=== PATIENT | female | born 1945 | race Caucasian/White ===

== ENCOUNTER 2016-06-02 13:36 | Inpatient (IN) | payer MEDICARE, OTHER ==
[~2016-06-02] VITALS: Ht 170.2 cm; Wt 86.1 kg
[2016-06-02 15:20] VITALS: BP 119/53
[2016-06-02 16:01] VITALS: BP 94/60
--- NOTE | 2016-06-02 16:06 | Physical Therapy Evaluation ---
PT Evaluation-General Medical Diagnosis Admission Date Jun 02, 2016 at 15:25 Medical Diagnosis: CVA Onset Date: May 30, 2016 Therapy Diagnosis Therapy Diagnosis: impaired mobility, motor planning, coordination Referral Physician: Stuart Reason for Referral: Evaluation/Treatment Medical History Pertinent Medical History: CVA, DM, HTN Additional Medical History carotid artery stenosis, bilateral cataracts, hyperlipidemia, lung mass, tubal ligation, carotid endarterectomy, former smoker Current History CVA Reviewed History: Yes Social History Home: Single Level Current Living Status: Alone Entry Into Home: Stairs With Railing PT Steps Into Home: 3 Her daughter lives next door and she may go live with her, her daughter has 4 steps to enter and a handrail. Prior/Core FIM Prior Level of Function Functional [place] Measure 0=Not Assessed/NA 4=Minimal Assistance 1=Total Assistance 5=Supervision or Setup 2=Maximal Assistance 6=Modified [place] 3=Moderate Assistance 7=Complete [place] Bed Mobility: 7 Transfers (B,C,W/C) (FIM): 7 Gait: 7 PT Evaluation-Current Subjective Patient in bed pre tx, agrees to PT. Patient has difficulty with communication and cannot answer questions or follow directions. She can understand gestures somewhat. It is unknown whether she has any pain but she does not seem in any distress. Will be co-treating with OT for part of this treatment. Pt/Family Goals patient is unable to state any goals Objective Patient Orientation: Unable to Assess ROM/Strength ROM Lower Extremities Patient has normal ROM in both legs except she is limited in internal and external hip rotation bilaterally. Strenght Lower Extremities 4+-5/5 gross bilaterally Neuromuscular (Tone, Coordination, Reflexes) Patient has decreased coordination on the right side and probable motor planning deficits. She was unable to follow directions for cranial nerve or visual testing but she seems to have a loss of visual field on the right side and possible right neglect. Sensory Vision: Unable to Assess Hearing: Unable to Assess Sensation Lower Extremities unable to assess sensation Transfers Functional [place] Measure 0=Not Assessed/NA 4=Minimal Assistance 1=Total Assistance 5=Supervision or Setup 2=Maximal Assistance 6=Modified [place] 3=Moderate Assistance 7=Complete IndependenceIRFPAI Quality Coding Scale 6 Independent with activity with or without an assistive device 5 Patient requires set up or clean up by helper. Patient completes activity by themselves 4 Supervision or touching assist (CGA). [place] provide cues , steadying assist 3 The helper provides less than half the effort to complete the activity 2 The helper provides more than half the effort to complete the activity 1 Dependent. The helper does all the effort to complete an activity 7 Patient refused to complete or attempt activity 9 The patient did not perform the activity before the current illness or injury 88 Not attempted due to Medical conditions or safety concerns Transfers (B, C, W/C) (FIM): 4 Scootin Rollin Roll Left to Right (QC): 4 Supine to/from Sit: 4 Sit to/from Stand: 4 Sit to Lying (QC): 4 Lying to Sitting/Side of Bed(Q: 4 Sit to Stand (QC): 4 Car Transfer (QC): 88 Patient performed supine to sit with min assist but was able to perform sit to supine with SBA, CGA for sit to stand, she pulls up from the walker when standing and does not use hand appropriately when sitting and has not seemed to understand safety cues at this time Gait Does the Patient Walk?: Yes Mode of Locomotion: Walk Anticipated Mode of Locomotion: Walk Gait (FIM): 4 Walk 10 feet (QC): 4 Walk 50 ft with 2 Turns(QC): 4 Walk 150 ft (QC): 4 Walking 10ft/uneven surface-QC: 4 Distance: 100', 150' Gait Level of Assist: 4 Gait Persons Needed: 1 Gait Assistive Device: FWW Comments/Gait Description Patient can ambulate 150' with a rolling walker with min assist (including 10' over an uneven surface like carpet and 50' with at least 2 turns of 90 degrees) . She needs min assist for guiding the walker and occasional redirecting physically because she does not seem to understand cues. Wheelchair Training Does the Pt Use a Wheelchair?: No Stairs Stairs (FIM): 2 #of Steps: 4 Level of Assist: 4 1 Step (curb) (QC): 4 4 Steps (QC): 4 12 Steps (QC): 88 If not tested on admit;explain Patient could go up and down 4 steps using 2 handrails with min assist. She needs occasional assist for balance and safety, close guarding, she does not understand cues for safety and step sequence. Balance Sitting Static: Normal Sitting Dynamic: Normal Standing Static: Fair Standing Dynamic: Fair Picking up an Object (QC): 88 Assessment/Needs Patient has impaired mobility, endurance, coordination, balance, motor planning , post CVA. Rehab Potential: Fair PT Short Term Goals Short Term Goals Time Frame: Jun 09, 2016 Transfers (B,C,W/C) (FIM): 4 (CGA) Gait (FIM): 4 Gait Distance Comment: 200' Gait Level of Assist: 4 (CGA) Gait Assistive Device: FWW PT Rn Transport Goals Skilled Nursing Goals PT Rn Transport Goals Time Frame: Jun 23, 2016 Transfers (B,C,W/C) (FIM): 5 Sit to Lying (QC): 6 Lying-Sitting on Side/Bed(QC): 6 Sit to Stand (QC): 4 Rollin Roll Left to Right (QC): 6 Car Transfer (QC): 4 Does the Patient Walk: Yes Gait (FIM): 5 Distance: 300' Walk 10 feet (QC): 4 Walk 10ft-Uneven Surface(QC): 4 Walk 50ft with 2 Turns (QC): 4 Walk 150 ft (QC): 4 Gait Level of Assist: 5 Gait Assistive Device: FWW Stairs (FIM): 2 # of Steps: 8 1 Step (curb) (QC): 4 4 Steps (QC): 4 12 Steps (QC): 88 Stairs Level Of Assist: 4 (CGA) Picking up an Object (QC): 88 PT Plan Problem List Problem List: Activity Tolerance, Functional Strength, Safety, Balance, Gait, Transfer, Bed Mobility, ROM Treatment/Plan Treatment Plan: Continue Plan of Care Treatment Plan: Bed Mobility, Education, Functional Activity Lio, Functional Strength, Group Therapy, Gait, Safety, Therapeutic Exercise, Transfers Treatment Duration: Jun 23, 2016 # of days/week 5-6 Visits Per Week: 10-11 Minutes/Day (M-F): 60-90 Minutes/Day (Sat/Braun): 15-30 Pt/Family Agrees w/Plan: Yes Safety Risks/Education Patient Education: Gait Training, Transfer Techniques, Steps, Correct Positioning, Disease Process, Safety Issues Teaching Recipient: Patient, Family Teaching Methods: Demonstration, Discussion Response to Teaching: Reinforcement Needed Discharge Recommendations Plan Patient will perform bed mobility and transfer training, balance and endurance training, functional strengthening, stair training, education, to improve functional mobility and independence at home. Therapy D/C Recommendations: Home w/ Family Support, Fdc (TCU/NH) Time/GCodes Time In: 1530 Time Out: 1600 Total Billed Treatment Time: 30 Total Billed Treatment 1 visit EVM 15 min FA 15 min Co-treated with OT for 15 min OT worked on toilet transfer and dressing while PT assisted with balance sitting and standing and redirecting and assisted in communication. KYLEIGH WEBSTER PT Jun 02, 2016 16:06
--- NOTE | 2016-06-02 17:07 | Occupational Therapy Eval ---
OT Evaluation-General/PLF Medical Diagnosis Admission Date Jun 02, 2016 at 15:25 Medical Diagnosis: CVA, R sided weakness Onset Date: May 30, 2016 Therapy Diagnosis Therapy Diagnosis: weakness, decr ADLs, decr act tolerance, decr motor planning , decr coord Height/Weight Height (Feet): 5 Height (Inches): 7.00 Weight (Pounds): 178 Weight (Ounces): 4.0 Precautions Precautions/Isolations: Fall Prevention, Standard Precautions Referral Physician: Stuart Referral Reason: Evaluation/Treatment Medical History Pertinent Medical History: CVA, DM, HTN, Smoking Additional Medical History Carotid stenosis, carotid endarterectomy in April, bilat cataract surgery, lung mass, smoker, O2 PRN Current History History of CVA in March 2016 with R sided weakness Reviewed History: Yes Social History Home: Single Level Current Living Status: Alone Entry Into Home: Stairs With Railing Steps Into Home: 3 ADL-Prior Level of Function ADL PLOF Comments Pt's daughter reported that her mother was independent with all basic self care needs prior to this event. 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 Pt indicated she was in no pain and did not demonstrate pain behaviors. Appearance Alert, demonstrating expressive and receptive aphasia, affecting her ability to identify location, date, etc. Mental Status/Objective Herrmann catheter removed earlier today Current Glasses/Contacts: Yes Hearing Aids: No Dentures/Partials: Yes Hand Dominance: Right Upper Extremity ROM Grossly WFL bilat. Pt had difficulty following verbal, visual, tactile cues for ROM and muscle testing Upper Extremity Strength Grossly 4/5 bilat (little difference noted or lag observed on R UE). Pt had difficulty following verbal, visual, tactile cues for ROM and muscle testing Pt had difficulty following instructions for visual field testing but demonstrates R sided neglect and probably visual field deficit ADL-Treatment ADL-Current Pt needed visual, verbal, physical cues to move to sit EOB, sit to stand, walked with FWW min assist, with some cueing to turn to the Right. Same cues needed to get on/off tall toilet, use grab bars on L side, manage clothing and hygiene. Was unable to walk up to sink to wash hands (stood back away from sink with FWW). Pt demonstrates difficulty motor planning and sequencing as she attempted to wipe her bottom after she had pulled her underwear up. Min assist on/off toilet, cues to initiate pants down and up, wiping. Pt is on puree diet. Pt had difficulty finding walker with her R hand and some incoordination observed with reaching for and pulling pants up. Pt did not understand to take her socks off and put them back on but was able to put them on after OT took them off, with effort and SOB. Functional [place] Measure 0=Not Assessed/NA 4=Minimal Assistance 1=Total Assistance 5=Supervision or Setup 2=Maximal Assistance 6=Modified [place] 3=Moderate Assistance 7=Complete IndependenceIRFPAI Quality Coding Scale 6 Independent with activity with or without an assistive device 5 Patient requires set up or clean up by helper. Patient completes activity by themselves 4 Supervision or touching assist (CGA). [place] provide cues , steadying assist 3 The helper provides less than half the effort to complete the activity 2 The helper provides more than half the effort to complete the activity 1 Dependent. The helper does all the effort to complete an activity 7 Patient refused to complete or attempt activity 9 The patient did not perform the activity before the current illness or injury 88 Not attempted due to Medical conditions or safety concerns Other Treatments Pt was very fatigued after transfer and activities of the day. She let therapists know that she was tired and reluctant to get up after resting for a minute. Decreased activity tolerance. Unable to do standardized strength or coordination testing due to decreased ability to follow instructions Education OT Patient Education: Purpose of tx/functional activities, Rehab process, Safety issues, Transfer techniques, Use of adapted equipment Teaching Recipient: Patient, Family Teaching Methods: Demonstration, Discussion Response to Teaching: Reinforcement Needed OT Short Term Goals Short Term Goals Time Frame: Jun 09, 2016 Grooming(FIM): 5 Lower Body Dressing(FIM): 5 Toileting(FIM): 5 OT Cardiac Tech Goals Cardiac Tech Goals Time Frame: Jun 27, 2016 Eating (FIM): 6 Eating (QC): 6 Groomin Oral Hygiene (QC): 6 Bathing(FIM): 5 Shower/Bathe Self (QC): 5 Upper Body Dressing(FIM): 6 Upper Body Dressing (QC): 6 Lower Body Dressing(FIM): 6 Lower Body Dressing (QC): 6 On/Off Footwear (QC): 6 Toileting(FIM): 6 Toileting Hygiene (QC): 6 Transfers (B,C,W/C) (FIM): 6 Toilet/Commode Transfer(FIM): 6 Toilet/Commode Transfer (QC): 6 Shower Transfer(FIM): 5 Additional Goals: 2-Verbalize Understanding, 3-ImproveStrength/Lio (and coordination) 1=Demonstrate adherence to instructed precautions during ADL tasks. 2=Patient will verbalize/demonstrate understanding of assistive devices/ modifications for ADL. 3=Patient will improve strength/tolerance for activity to enable patient to perform ADL's. OT Education/Plan Problem List/Assessment Assessment: Decreased Activ Tolerance, Decreased Safety Aware (Fall risk, impulsive), Decreased UE Strength, Dependent Transfers, Impaired Cognition ( expressive and receptive aphasia), Impaired Coordination, Impaired Funct Balance , Impaired Self-Care Skills, Visual-Perceptual Deficit (R sided neglect, possible visual field deficit) Discharge Recommendations Plan/Recommendations: Continue POC Target Placement home or with her daughter Patient/Family Goals Pt was unable to identify goals Treatment Plan/Plan of Care Treatment,Training & Education: Yes Patient would benefit from OT for education, treatment and training to promote independence in ADL's, mobility, safety and/or upper extremity function for ADL' s. Plan of Care: ADL Retraining, Cognitive Retraining, Functional Mobility, Group Exercise/Act as Ind (educaiton, exercise, communication, activity tolerance, socialization), UE Funct Exercise/Act, UE Neuromus Re-Ed/Coord, Visual/ Perceptual Retrain Treatment Duration: Jun 27, 2016 # of days/week 5-6 Visits Per Week: 10-11 Minutes/Day (M-F): 75-90 Minutes/Day (Sat/Braun): PRN Agreement: Yes Rehab Potential: Fair Time/GCodes Start Time: 15:15 Stop Time: 15:45 Total Time Billed (hr/min): 30 Billed Treatment Time visit, 15 minutes evaluation high complexity, 15 minutes ADL Co-tx with PT for 15 minutes, with OT working on toileting and other ADLs, R hand function and PT working on LE function, mobility, gait. Pt also very fatigued from the day's activities and transportation from out of town JACINDA PICKETT OT Jun 02, 2016 17:07
[2016-06-02] MEDS ORDERED: HYDROcodone/APAP 5 MG/325 MG (LORTAB) TAB PO PRN (17:45)
[2016-06-02 17:53] VITALS: BP 115/11
[2016-06-02] MEDS: GLIMEPIRIDE 2 MG (AMARYL) TAB PO SCH (18:51)
[2016-06-02] MEDS: ATORVASTATIN 80 MG (LIPITOR) TABLET PO SCH (21:22)
[2016-06-03 05:32] LABS: BASOPHILS # (AUTO) 0.1 10^3/uL (0.0-0.1); BASOPHILS % (AUTO) 1 % (0-10); EOSINOPHILS # (AUTO) 0.2 10^3/uL (0.0-0.3); EOSINOPHILS % (AUTO) 2 % (0-10); LYMPHOCYTES # (AUTO) 2.1 X 10^3 (1.0-4.0); LYMPHOCYTES % (AUTO) 16 % (12-44); MEAN CORPUSCULAR HEMOGLOBIN 30 PG (25-34); MEAN CORPUSCULAR HGB CONC 33 G/DL (32-36); MEAN CORPUSCULAR VOLUME 90 FL (80-99); MEAN PLATELET VOLUME 9.8 FL (7.4-10.4); MONOCYTES # (AUTO) 1.6 X 10^3 (0.0-1.0); MONOCYTES % (AUTO) 12 % (0-12); NEUTROPHILS # (AUTO) 8.8 X 10^3 (1.8-7.8); NEUTROPHILS % (AUTO) 69 % (42-75); PLATELET COUNT 303 10^3/uL (130-400); RED CELL DISTRIBUTION WIDTH 13.9 % (10.0-14.5); WHITE BLOOD COUNT 12.8 10^3/uL (4.3-11.0)
[2016-06-03 06:00] VITALS: BP 114/60
[2016-06-03 06:20] LABS: ALBUMIN 3.7 G/DL (3.2-4.5); BILIRUBIN,TOTAL 0.8 MG/DL (0.1-1.0); CALCIUM 9.8 MG/DL (8.5-10.1); CREATININE SERUM 1.06 MG/DL (0.60-1.30); POTASSIUM 3.7 MMOL/L (3.6-5.0); TOTAL PROTEIN 6.4 G/DL (6.4-8.2)
[2016-06-03] MEDS: GLIMEPIRIDE 2 MG (AMARYL) TAB PO SCH ×2 (06:43→16:04)
[2016-06-03 07:41] LABS: BILIRUBIN,URINE NEGATIVE (NEGATIVE); KETONES,URINE NEGATIVE (NEGATIVE); LEUKOCYTE ESTERASE ,URINE 3+ (NEGATIVE); NITRITE,URINE NEGATIVE (NEGATIVE); PH,URINE 5 (5-9); PROTEIN,URINE 2+ (NEGATIVE); UROBILINOGEN,URINE NORMAL (NORMAL)
[2016-06-03] MEDS: CLOPIDOGREL 75 MG (PLAVIX) TABLET PO SCH (08:10)
[2016-06-03] MEDS: lisINopril 5 MG (PRINIVIL) TABLET PO SCH (08:10)
[2016-06-03] MEDS: ASPIRIN E.C. 325 MG (ECOTRIN) TABLET PO SCH (08:10)
--- NOTE | 2016-06-03 08:20 | Consultation ---
History of Present Illness History of Present Illness Patient Consulted On(shannan/time) 06/03/16 08:16 Date of Admission History of Present Illness patient is unable to give any history. Patient is able to talk but not make any sense. Patient does not know who the physician's assistant is. Patient does not know what 2+2 is. Patient does not know her birthday. Patient had a previous stroke. Patient had carotid endarterectomy on the left side Allergies and Home Medications Allergies Coded Allergies: ampicillin (Verified Allergy, Unknown, 06/02/16) metformin (Verified Allergy, Unknown, 06/02/16) Uncoded Allergies: metfo (Allergy, Unknown, 06/02/16) Past Smodeup-Ztifej-Zjtlii Hx Patient Social History Alcohol Use: Denies Use Recreational Drug Use: No Smoking Status: Former Smoker Type Used: Cigarettes Recent Foreign Travel: No Contact w/Someone Who Travel: No Recent Infectious Disease Expo: No Recent Hopitalizations: Yes (CVA) Physical Abuse Screen: No Sexual Abuse: No Immunizations Up To Date Date of Pneumonia Vaccine: Mar 30, 2016 Date of Influenza Vaccine: Feb 28, 2016 Seasonal Allergies Seasonal Allergies: No Respiratory Respiratory Disorders: Pneumonia Gastrointestinal Gastrointestinal Disorders: Chronic Constipation, Chronic Diarrhea HEENT HEENT Disorders: Cataract Blood Transfusions Adverse Reaction to a Blood Tr: No Family Medical History Family Medial History: CANCER OF UNKNOWN SYSTEM 19 FATHER Dementia 19 MOTHER Diabetes mellitus SON TACHYCARDIA DAUGHTER Review of Systems-General Constitutional: other (confusion) EENTM: no symptoms reported Respiratory: other (history of pneumonia in March) Cardiovascular: no symptoms reported Gastrointestinal: no symptoms reported Genitourinary: other (urine looks bad) Physical Exam-General Problems Physical Exam Vital Signs Vital Sign - Last 12Hours 06/02/16 15:20 Temp 97.0 Pulse 99 Resp 20 B/P 119/53 Pulse Ox 95 O2 Delivery Room Air Capillary Refill : General Appearance: WD/WN no apparent distress Eyes: Bilateral Eye Normal Inspection HEENT: normal ENT inspection Neck: non-tender full range of motion Respiratory: chest non-tender lungs clear normal breath sounds no respiratory distress no accessory muscle use Assessment/Plan Assessment/Plan Admission Diagnosis/Plan CVA. Confusion. History of pneumonia. Hypertension. Multiple lung nodules. Diabetes Clinical Quality Measures DVT/VTE Risk/Contraindication: Risk Factor Score Per Nursin RFS Level Per Nursing on Admit: 4+=Very High LALO HERRERA DO Jun 03, 2016 08:20
--- NOTE | 2016-06-03 08:46 | Physical Therapy Daily Note ---
PT Daily Note-Current Subjective Patient in recliner pre tx, pleasant and cooperative. She can communicate a little better and when asked, states she has no pain. Appearance Patient in recliner post tx with nurse call, phone, tray, daughter in room, all needs met. Mental Status Patient Orientation: Unable to Assess Transfers Functional [place] Measure 0=Not Assessed/NA 4=Minimal Assistance 1=Total Assistance 5=Supervision or Setup 2=Maximal Assistance 6=Modified [place] 3=Moderate Assistance 7=Complete IndependenceIRFPAI Quality Coding Scale 6 Independent with activity with or without an assistive device 5 Patient requires set up or clean up by helper. Patient completes activity by themselves 4 Supervision or touching assist (CGA). [place] provide cues , steadying assist 3 The helper provides less than half the effort to complete the activity 2 The helper provides more than half the effort to complete the activity 1 Dependent. The helper does all the effort to complete an activity 7 Patient refused to complete or attempt activity 9 The patient did not perform the activity before the current illness or injury 88 Not attempted due to Medical conditions or safety concerns Transfers (B, C, W/C) (FIM): 4 Sit to/from Stand: 4 CGA for transfers, patient will keep hands on walker when sit <-> stand and will not follow directions to put her hands on armrests of chair Gait Training Gait (FIM): 4 Distance: 150'x2 Gait Level of Assist: 4 Gait Persons Needed: 1 Gait Assistive Device: FWW CGA, patient has right neglect, visual cues for direction, no LOB Stair Training Stair Training: Handrails/: 2 handrails Stairs (FIM): 2 #of Steps: 8 Level of Assist: 4 CGA, patient will not follow directions for a step to pattern, needs cues to put her right hand on the handrail Exercises NuStep Minutes: 15 NuStep Workload: 4 Treatments transfers, ambulation, functional strengthening, stair training, gait training Assessment Current Status: Fair Progress Patient has impaired endurance and needs rest breaks between activities. She has a lot of communication difficulties and has extreme difficulty following directions without visual cues and even then still has trouble. PT Short Term Goals Short Term Goals Time Frame: Jun 09, 2016 Gait (FIM): 4 Gait Distance Comment: 200' Gait Level of Assist: 4 (CGA) Gait Assistive Device: FWW PT Mcfp Goals Paper Grader Goals PT Mcfp Goals Time Frame: Jun 23, 2016 Transfers (B,C,W/C) (FIM): 5 Sit to Lying (QC): 6 Lying-Sitting on Side/Bed(QC): 6 Sit to Stand (QC): 4 Rollin Roll Left to Right (QC): 6 Car Transfer (QC): 4 Does the Patient Walk: Yes Gait (FIM): 5 Distance: 300' Walk 10 feet (QC): 4 Walk 10ft-Uneven Surface(QC): 4 Walk 50ft with 2 Turns (QC): 4 Walk 150 ft (QC): 4 Gait Level of Assist: 5 Gait Assistive Device: FWW Stairs (FIM): 2 # of Steps: 8 1 Step (curb) (QC): 4 4 Steps (QC): 4 12 Steps (QC): 88 Stairs Level Of Assist: 4 (CGA) Picking up an Object (QC): 88 PT Plan Problem List Problem List: Activity Tolerance, Functional Strength, Safety, Balance, Gait, Transfer, Bed Mobility Treatment/Plan Treatment Plan: Continue Plan of Care Treatment Plan: Bed Mobility, Education, Functional Activity Lio, Functional Strength, Group Therapy, Gait, Safety, Therapeutic Exercise, Transfers Treatment Duration: Jun 23, 2016 Visits Per Week: 10-11 Minutes/Day (M-F): 60-90 Minutes/Day (Sat/Braun): 15-30 Safety Risks/Education Patient Education: Gait Training, Transfer Techniques, Steps, Safety Issues Teaching Recipient: Patient Teaching Methods: Demonstration, Discussion Response to Teaching: Reinforcement Needed Time/GCodes Time In: 800 Time Out: 900 Total Billed Treatment Time: 60 Total Billed Treatment 1 visit EX 15 min FA 15 min GT 15 min KYLEIGH WEBSTER PT Jun 03, 2016 08:45
[2016-06-03] MEDS ORDERED: ATOR80TA64 PO (09:48)
[2016-06-03] MEDS ORDERED: LISI-556 PO (09:48)
[2016-06-03] MEDS ORDERED: HYDR-3812 PO (09:48)
[2016-06-03] MEDS ORDERED: CLOP75TA69 PO (09:48)
[2016-06-03] MEDS ORDERED: ASPI325T32 PO (09:48)
[2016-06-03] MEDS ORDERED: GLIM2TAB PO (09:48)
--- NOTE | 2016-06-03 10:11 | ST Dysphagia Evaluation ---
Speech Evaluation-General Medical Diagnosis CVA (left frontoparietal), R sided weakness Onset Date: May 30, 2016 Therapy Diagnosis Therapy Diagnosis: Moderate Oropharyngeal Dysphagia Precautions Precautions: Aspiration Precautions/Isolations: Fall Prevention, Standard Precautions Referral Referring Physician: Dr. Jovanny Davidson Reason for Referral: Evaluation/Treatment Clinical Bedside Swallowing Evaluation Medical History Pertinent Medical History: CVA, DM, HTN, Smoking Reviewed History: Yes Social History Current Living Status: Alone Speech PLF/Current-Dysphagia Prior Level of Function Prior to the patient's CVA, she consumed a regular diet with thin liquids. Subjective The patient was recently admitted to [facility] following a left fronto-parietal CVA on May 30, 2016. As a result of the CVA, the patient demonstrates right sided weakness, moderate oropharyngeal dysphagia, and moderate to severe receptive and expressive aphasia. The patient greeted the clinician appropriately and agreed to participate in the clinical bedside swallowing evaluation on this date. Cognitive Status Patient Orientation: Person Oral Motor Skills Dentition: Edentalous Denture Type: Full- Upper & Lower (Patient requested dentures for meals/snacks/ mastication) Current Food Consistancy: Pureed, Honey Liquids Ability to Follow Directions: Fair Oral Expression Ability: Moderate Impairment Face Facial Symmetry: Symmetrical Oral-Facial Assessment Oral-Facial Dentition: Normal Labial Seal Description: Normal Smile: Normal Puff Cheeks: Normal Lingual Protrusion: Normal Lingual ROM: Normal Lingual Strength: Normal Pharynx Velopharyngeal Move.: Normal Volitional Dry Swallow: Yes Dysphagia Evaluation Consistencies Presented: Regular, Thin Liquid, [place] Thick Liquid, Honey Thick Liquid, Pureed - No oral impairments were noted throughout the evaluation. Pharyngeal Phase: Multiple Swallow Attempts, Delayed Swallow - Thin Liquids (via teaspoon and cup sip): Intermittent, delayed throat clearing was noted following swallows of thin liquid via cup sip and teaspoon. - [place]-Thick Liquid: No signs/symptoms of aspiration were demonstrated with multiple boluses of nectar-thick liquid via cup sip and teaspoon. - Honey-Thick Liquid: No signs.symptoms of aspiration were demonstrated with multiple boluses of honey-thick liquid via cup sip and teaspoon. The patient demonstrated a delayed throat clear with straw sips of honey-thick liquid. - Puree: No signs/symptoms of aspiration were demonstrated with multiple boluses of puree. - Solid: No signs/symptoms of aspiration were demonstrated with multiple boluses of saltine cracker. Dietary Recommendations: Regular Liquid Recommendations: [place] Consistancy Swallowing Precautions: Decreased Bolus 1/2 Tsp, Liquids from Cup, No Straw, Small Bites and Sips, Sitting Upright 90 Degrees Dysphagia Evaluation Summary The patient demonstrated moderate oropharyngeal dysphagia characterized by a delayed pharyngeal swallow response. Speech Short Term Goals Short Term Goals Short Term Goals 1. The patient will tolerate trials of the least restrictive consistency without signs/symptoms of aspiration. 2. The patient will demonstrate laryngeal, pharyngeal and base of tongue exercises with 80% accuracy, independently. 3. The patient will demonstrate swallowing strategies with 90% accuracy, independently. Time Frame-STG: Three Weeks Speech Detention Goals Detention Goals 1. The patient will tolerate the least restrictive diet without signs/symptoms of aspiration or laryngeal penetration. Time Frame: Four Weeks Speech-Plan Treatment Plan Speech Therapy Treatment Plan: Continue Plan of Care Continue skilled speech therapy to focus on swallowing strengthening exercises and swallowing strategies. Treatment Duration: Jul 01, 2016 # of days/week Five. Visits Per Week: Ten. Minutes/Day (M-F): 60 Rehab Potential: Fair Safety Risks/Education Teaching Recipient: Patient Teaching Methods: Discussion Response to Teaching: Verbalize Understanding, Reinforcement Needed Education Topics Provided: Results, Recommendations, Swallowing Strategies, Signs/symptoms of aspiration Time Speech Therapy Time In: 09:30 Speech Therapy Time Out: 10:00 Total Billed Time: 30 Billed Treatment Time 1EDENILSON [facility], [facility] 10:11
[2016-06-03] MEDS: CEPHALEXIN 250 MG (KEFLEX) CAP PO SCH ×3 (10:47→20:50)
--- NOTE | 2016-06-03 11:03 | HISTORY AND PHYSICAL ---
DATE OF ADMISSION: 06/02/2016 CHIEF COMPLAINT: Difficulty with speech. HISTORY OF PRESENT ILLNESS: The patient is a 71-year-old female with past medical history significant for diabetes mellitus type 2, hypertension, hyperlipidemia, pneumonia, history of left-sided stroke with residual right-sided weakness March 2016. She was put on aspirin, Plavix and Lipitor. She was also found to have critical left carotid stenosis for which [facility] After [facility] she was doing much better. Seemed like her right-sided weakness had almost disappeared. Unfortunately on the morning of 05/30 when she woke up she was having aphasia CT of the head showed findings compatible with subacute left frontoparietal nonhemorrhagic infarcts. The patient was resumed on aspirin, Lipitor and Plavix. EKG was normal sinus rhythm. No acute ST-T wave changes. The patient had a decline in her functional independence. She lives alone in [place], [place]. Her PCP is Dr. Jose Roberto Zhang at [facility]. She is referred to Inpatient Rehabilitation Unit at [facility] with goal of maximizing level of functional dependence prior to discharge home with home health care and a friend. Currently she is Min assist for gait and transfers.She is min assit for much of her adls with patient needing cueing to loook to the right,She was just assessed by ST the morning of 06/03/16 and dysphagia noted as well as aphasia but did well enough on swallow eval to have Diet advanced to regular consistency solids Liquids remain nectar consistency PAST MEDICAL HISTORY: 1. Prior stroke. 2. Carotid artery disease. 3. Hypertension. 4. Type 2 diabetes mellitus. 5. The patient was found to have dysphagia and is currently on pureed diet with honey consistency liquids. 6. She has considerable expressive aphasia. 7. She is able to follow simple commands for the most part. PAST SURGICAL HISTORY: Essentially as per above. ALLERGIES: 1. AMPICILLIN. 2. METFORMIN. FAMILY HISTORY: Noncontributory. SOCIAL HISTORY: She lives alone. History of tobaccoism. She is . REVIEW OF SYSTEMS: Ten-point review of systems significant for difficulty with speech, gait imbalance. MEDICATIONS: 1. Hydrocodone APAP 5/325, 1 tablet p.o. q.4 hours p.r.n. pain. 2. Glimepiride 2 mg p.o. b.i.d. 3. Plavix 100 mg p.o. daily. 4. Lipitor 80 mg p.o. at bedtime. 5. Enteric-coated aspirin 325 mg p.o. daily. PHYSICAL EXAMINATION: Significant for a pleasant female, appearing her stated age, sitting up in chair in no acute distress with significant expressive aphasia. VITAL SIGNS: Pulse is 79. O2 sat 96% on room air. She is afebrile. Respirations 16, blood pressure 94/60. HEENT: Vision and hearing appear grossly intact. Speech is impaired. No oral lesion is noted. She is noted to have dysphagia on medical records and is on a modified diet. NECK: Supple without mass. HEART: Regular rhythm. LUNGS: Clear. ABDOMEN: Soft, nontender. Bowel sounds present. EXTREMITIES: No lower leg edema. No calf tenderness. MUSCULOSKELETAL: She has functional active range of motion in all 4 extremities. NEUROLOGIC: She has significant expressive aphasia, mild right-sided weakness and discoordination on the right. Sensation is grossly intact to touch.Dyshagia s noted above Strength Both upper limbs 4/5 but with lag noted on right,Strength Both lower limbs 4+/5 to 5-/5 IMPRESSION: 1. Left frontal parietal cerebrovascular accident with mild right hemiparesis, discoordination and expressive aphasia, as well as dysphagia. 2. Carotid artery disease, status post carotid endarterectomy. 3. Left carotid endarterectomy, [place]. [place]yer, [place]. 4. Hypertension, controlled with medication. 5. Hyperlipidemia, on statin. 6. Diabetes mellitus type 2, on oral medication. 7. History of lung mass benign. 8. History of tobaccoism. 9. History of pneumonia. PLAN: The patient will have a comprehensive program of inpatient stroke rehabilitation with goal of maximizing level of functional dependence prior to discharge home with family and home health care. The patient will have PT/OT and 90 minutes per day, each discipline, 5 days week, when not being seen by speech therapy, for gait strengthening, conditioning, balance, ADLs, any patient/family/caregiver training necessary, any adaptive equipment and training necessary. Speech therapy to do speech, swallow cognitive assessment and treat as indicated 3 to 5 times a week 30 to 45 minutes per day. Rehabilitation nursing assist with bowel, bladder, skin care, medication administration, pain management. member services representative to assist with discharge planning, community reentry monitor O2 sats. Accu-Cheks q.i.d. before meals and at bedtime. Check CBC and chem C in a.m. Consult Dr. Anderson for medical management of this out of town patient; her PCP is in [place]. ESTIMATED LENGTH OF STAY: 2 to 3 weeks. PROGNOSIS: Rehab prognosis appears good for goal of level of functional dependence prior to discharge home with family and home health care, particularly, improving balance and ADLs and mobility skills, as well as her swallow and communication skills. DIET: Cardiac and altered as per above, thickened liquids. CODE STATUS: Full code. POST ADMISSION PHYSICIAN ASSESSMENT: The preadmission screen agrees with the post admission assessment that the patient is a good candidate for inpatient rehabilitation. She appears to be well motivated to participate in 3 hours of therapy a day, she should be able tolerate 3 hours of therapy a day from a medical standpoint. She should benefit from the 3 hours of therapy a day. She has a reasonable discharge plan, reasonable discharge rehabilitation goals and a supportive family. The goals would be to make her modified independent to supervision for ADLs and mobility skills, communication and swallow skills. The patient has various comorbidities that need to be closely monitored with medications and treatments adjusted on a daily basis as needed. These include her hypertension, her diabetes mellitus, type II and her dysphagia. Barriers to discharge for this patient who had been modified independent prior to this are for her to be modified independent to supervision for ADLs and mobility skills, communication and swallow skills prior to discharge home with family and home health care, so as to lessen the burden of the caregivers. Risks for this patient include: 1. Recurrent stroke. 2. Aspiration. 3. Respiratory infection. 4. DVT. 5. Pulmonary embolism. 6. Fall. 7. Fracture. 8. Poorly controlled diabetes. 9. Poorly controlled hypertension. We will utilize SCDs for DVT prophylaxis. The patient with cardiac and fall precautions. Job ID: [id number] Dictated Date: 06/02/2016 17:57:38 Medical Or Surgical Instrument Maker Date: 06/03/2016 09:39:45/jan CUEVAS
--- NOTE | 2016-06-03 11:49 | PM & R (SOAP) Progress Note ---
Subjective Subjective/Events-last exam Patient was seen in Gym this AM Discussed case with DR Anderson Current labs and therapy notes appreciated Advanced diet as per ST recs. Objective Exam Last Set of Vital Signs Vital Signs Date Time Temp Pulse Resp B/P Pulse Ox O2 Delivery O2 Flow Rate FiO2 06/03/16 09:00 Room Air 06/03/16 06:00 97.8 68 18 114/60 94 Capillary Refill : I&O Bad tableGeneral: Alert, Cooperative, No Acute Distress HEENT: Atraumatic, PERRLA, EOMI, Mucous Memb Moist/[place], Other (Aphasia and Dysphagia) Neck: Supple, No JVD, Other (left CEA site healing well no drainage) Lungs: Clear to Auscultation Heart: Regular Rate Abdomen: Normal Bowel Sounds, Soft, No Tenderness Extremities: No Edema Neuro: Other (Mild rt sided weakness and dyscoordination as well as aphasia and dysphagia) Results Lab Laboratory Tests 06/03/16 05:25: Alanine Aminotransferase (ALT/SGPT) 15, Albumin 3.7, Alkaline Phosphatase 110, Anion Gap 13, Aspartate Amino Transf (AST/SGOT) 14, BUN/Creatinine Ratio 25, Basophils # (Auto) 0.1, Basophils (%) (Auto) 1, Blood Urea Nitrogen 27H, Calcium Level 9.8, Carbon Dioxide Level 23, Chloride Level 106, Creatinine 1.06 , Eosinophils # (Auto) 0.2, Eosinophils (%) (Auto) 2, Estimat Glomerular Filtration Rate 51, Glucose Level 159H, Hematocrit 43, Hemoglobin 14.3, Lymphocytes # (Auto) 2.1, Lymphocytes (%) (Auto) 16, Mean Corpuscular Hemoglobin 30, Mean Corpuscular Hemoglobin Concent 33, Mean Corpuscular Volume 90, Mean Platelet Volume 9.8, Monocytes # (Auto) 1.6H, Monocytes (%) (Auto) 12, Neutrophils # (Auto) 8.8H, Neutrophils (%) (Auto) 69, Platelet Count 303, Potassium Level 3.7, Red Blood Count 4.80, Red Cell Distribution Width 13.9, Sodium Level 142, Total Bilirubin 0.8, Total Protein 6.4, White Blood Count 12.8H 06/03/16 06:50: Urine Bacteria TRACE, Urine Bilirubin NEGATIVE, Urine Casts NONE, Urine Clarity CLEAR, Urine Color YELLOW, Urine Crystals NONE, Urine Culture Indicated YES, Urine Glucose (UA) NEGATIVE, Urine Ketones NEGATIVE, Urine Leukocyte Esterase 3+ H, Urine Mucus MODERATEH, Urine Nitrite NEGATIVE, Urine Protein 2+H, Urine RBC 5 -10H, Urine RBC (Auto) 5+H, Urine Specific [place] 1.025H, Urine Squamous Epithelial Cells 5-10, Urine Urobilinogen NORMAL, Urine WBC 10-25H, Urine pH 5 06/03/16 11:06: Glucometer 176H Assessment/Plan Assessment Left cva with Rt HP mild and aphasia and dysphagia Presumed UTI-Placed on antibiotic with C&S pending HTN controlled / S/P Left CEA foe coritid Artery D DM controlled Plan Continue PT/OT/ST Diet advanced as per [facility] Team Conference tomorrow F/U re UC&S INGE MILLER MD Jun 03, 2016 11:49
--- NOTE | 2016-06-03 13:09 | Occupational Ther Daily Note ---
OT Current Status-Daily Note Subjective Pt seen in room, up in recliner, agreeable to OT. Pt cont with expressive and receptive aphasia but was social. Appearance Alert, cooperative Mental Status/Objective Functional [place] Measure 0=Not Assessed/NA 4=Minimal Assistance 1=Total Assistance 5=Supervision or Setup 2=Maximal Assistance 6=Modified [place] 3=Moderate Assistance 7=Complete [place] ADL-Treatment Pt doing better with automatic functional activities such as bathing or dressing. Requires supervision throughout all ADLs Functional [place] Measure 0=Not Assessed/NA 4=Minimal Assistance 1=Total Assistance 5=Supervision or Setup 2=Maximal Assistance 6=Modified [place] 3=Moderate Assistance 7=Complete IndependenceIRFPAI Quality Coding Scale 6 Independent with activity with or without an assistive device 5 Patient requires set up or clean up by helper. Patient completes activity by themselves 4 Supervision or touching assist (CGA). [place] provide cues , steadying assist 3 The helper provides less than half the effort to complete the activity 2 The helper provides more than half the effort to complete the activity 1 Dependent. The helper does all the effort to complete an activity 7 Patient refused to complete or attempt activity 9 The patient did not perform the activity before the current illness or injury 88 Not attempted due to Medical conditions or safety concerns Eating (FIM): 4 (Supervision. Pt has swallowing precautions and diet upgrade. Pt was able to open packages, find foods on R side of tray, use for and spoon in R hand to scoop food and get it to her mouth. No straws - called food quality technician to enter this in their instructions. ) Eating (QC): 4 (supervision) Grooming (FIM): 4 (Supervision, skilled cues to find items and identify what task to do. Able to take dentures out and clean them once sitting at sink. Brushed and combed hair - perseverated on drying it with hair or beauty salon manager and finding outlet, then indicating to just let it dry on its own. Washed face and hands in shower) Oral Hygiene (QC): 4 (supervision) Bathing (FIM): 4 (CGA when standing to wash bottom. Washed and dried all parts but needed verbal and physical cues to do some parts. Shower bench, grab bars, hand held shower. Pt washed her hair 3 times and mixed up using body sponge to wash her hair. Not thorough in drying. Pt seemed to appreciate the shower and smiled during and after it. ) Shower/Bathe Self (QC): 4 Upper Body (FIM): 4 (Min assist to find arm hole on R side. No bra) Upper Body Dressing (QC): 4 (touching assist, cues) Lower Body Dressing (FIM): 4 (min assist, help getting L leg into pants, pullings pants up over R hip. Stood CGA with FWW. Able to don slipper socks) Lower Body Dressing (QC): 3 On/Off Footwear (QC): 4 (supervision) Toileting (FIM): 4 (CGA when standing to manage clothing. Able to take depends off. FWW, tall toilet, grab bar) Toileting Hygiene (QC): 4 (CGA) Transfers (B, C, W/C) (FIM): 4 (CGA, FWW, cues or help to place R hand on walker) Toilet/Commode Transfer (FIM): 4 (CGA, tall toilet, grab bar, FWW) Toilet Transfer (QC): 4 Shower Transfer(FIM): 4 (CGA, FWW, shower bench, grab bars. Skilled cues needed to sit to bathe and dry off) Other Treatment Pt walked to gym with min-CGA A, FWW, with cues for turning and getting closer to walker. Pt did 10 minutes bilat UE exercise on arm bike, 10W resistance, with occasional skilled verbal and tactile cues to keep R hand on arm bike. Pt worked at steady pace and did not take a break. Pt walked back to room min-CGA, FWW, then ate lunch. Pt left up in recliner, all needs met. Recommend chair alarm because she impulsively gets up from chair or shower bench without supervision or walker. Education OT Patient Education: Exercise program, Modified ADL techniques, Safety issues , Transfer techniques, Use of adapted equipment Teaching Recipient: Patient Teaching Methods: Demonstration, Discussion Response to Teaching: Return Demonstration, Reinforcement Needed OT Short Term Goals Short Term Goals Time Frame: Jun 09, 2016 Grooming(FIM): 5 Lower Body Dressing(FIM): 5 Toileting(FIM): 5 1=Demonstrate adherence to instructed precautions during ADL tasks. 2=Patient will verbalize/demonstrate understanding of assistive devices/ modifications for ADL. 3=Patient will improve strength/tolerance for activity to enable patient to perform ADL's. OT Cylinder Press Operator Goals Cylinder Press Operator Goals Time Frame: Jun 27, 2016 Eating (FIM): 6 Eating (QC): 6 Groomin Oral Hygiene (QC): 6 Bathing(FIM): 5 Shower/Bathe Self (QC): 5 Upper Body Dressing(FIM): 6 Upper Body Dressing (QC): 6 Lower Body Dressing(FIM): 6 Lower Body Dressing (QC): 6 On/Off Footwear (QC): 6 Toileting(FIM): 6 Toileting Hygiene (QC): 6 Transfers (B,C,W/C) (FIM): 6 Toilet/Commode Transfer(FIM): 6 Toilet/Commode Transfer (QC): 6 Shower Transfer(FIM): 5 Additional Goals: 2-Verbalize Understanding, 3-ImproveStrength/Lio (and coordination) 1=Demonstrate adherence to instructed precautions during ADL tasks. 2=Patient will verbalize/demonstrate understanding of assistive devices/ modifications for ADL. 3=Patient will improve strength/tolerance for activity to enable patient to perform ADL's. OT Education/Plan Discharge Recommendations Plan/Recommendations: Continue POC Treatment Plan/Plan of Care Patient would benefit from OT for education, treatment and training to promote independence in ADL's, mobility, safety and/or upper extremity function for ADL' s. Plan of Care: ADL Retraining, Cognitive Retraining, Functional Mobility, Group Exercise/Act as Ind (educaiton, exercise, communication, activity tolerance, socialization), UE Funct Exercise/Act, UE Neuromus Re-Ed/Coord, Visual/ Perceptual Retrain Treatment Duration: Jun 27, 2016 Visits Per Week: 10-11 Minutes/Day (M-F): 75-90 Minutes/Day (Sat/Braun): PRN Agreement: Yes Rehab Potential: Fair Time/GCodes Start Time: 10:00 Stop Time: 11:15 Total Time Billed (hr/min): 75 Billed Treatment Time visit, 60 minutes ADL, 15 minutes exercise JACINDA PICKETT OT Jun 03, 2016 13:09
--- NOTE | 2016-06-03 13:30 | Physical Therapy Daily Note ---
PT Daily Note-Current Subjective Patient in bed pre tx, agrees to PT, she has communication issues but states that she does not have any pain. Appearance Patient in bed post tx with nurse call, phone, tray, bed alarm on, all needs met. Mental Status Patient Orientation: Unable to Assess Transfers Functional [place] Measure 0=Not Assessed/NA 4=Minimal Assistance 1=Total Assistance 5=Supervision or Setup 2=Maximal Assistance 6=Modified [place] 3=Moderate Assistance 7=Complete IndependenceIRFPAI Quality Coding Scale 6 Independent with activity with or without an assistive device 5 Patient requires set up or clean up by helper. Patient completes activity by themselves 4 Supervision or touching assist (CGA). [place] provide cues , steadying assist 3 The helper provides less than half the effort to complete the activity 2 The helper provides more than half the effort to complete the activity 1 Dependent. The helper does all the effort to complete an activity 7 Patient refused to complete or attempt activity 9 The patient did not perform the activity before the current illness or injury 88 Not attempted due to Medical conditions or safety concerns Transfers (B, C, W/C) (FIM): 4 Scootin Rollin Supine to/from Sit: 6 Sit to/from Stand: 4 cues for safety and hand placement Gait Training Gait (FIM): 4 Distance: 150'x2 Gait Level of Assist: 4 Gait Persons Needed: 1 Gait Assistive Device: FWW CGA, needs cues for safety and direction, right neglect, cues to keep right hand on teller supervisor on walker Exercises Standing: Hip Abduction, Hamstring curls, Heel/toe raises, Marching, Mini squats Standing Reps: 20 Treatments bed mobility and transfers, ambulation, functional strengthening Assessment Current Status: Fair Progress patient does fatigue quickly and needs occasional rest breaks PT Short Term Goals Short Term Goals Time Frame: Jun 09, 2016 Gait (FIM): 4 Gait Distance Comment: 200' Gait Level of Assist: 4 (CGA) Gait Assistive Device: FWW PT Senior Living Goals Brand Ambassador Goals PT Brand Ambassador Goals Time Frame: Jun 23, 2016 Transfers (B,C,W/C) (FIM): 5 Sit to Lying (QC): 6 Lying-Sitting on Side/Bed(QC): 6 Sit to Stand (QC): 4 Rollin Roll Left to Right (QC): 6 Car Transfer (QC): 4 Does the Patient Walk: Yes Gait (FIM): 5 Distance: 300' Walk 10 feet (QC): 4 Walk 10ft-Uneven Surface(QC): 4 Walk 50ft with 2 Turns (QC): 4 Walk 150 ft (QC): 4 Gait Level of Assist: 5 Gait Assistive Device: FWW Stairs (FIM): 2 # of Steps: 8 1 Step (curb) (QC): 4 4 Steps (QC): 4 12 Steps (QC): 88 Stairs Level Of Assist: 4 (CGA) Picking up an Object (QC): 88 PT Plan Problem List Problem List: Activity Tolerance, Functional Strength, Safety, Balance, Gait, Transfer Treatment/Plan Treatment Plan: Continue Plan of Care Treatment Plan: Bed Mobility, Education, Functional Activity Lio, Functional Strength, Group Therapy, Gait, Safety, Therapeutic Exercise, Transfers Treatment Duration: Jun 23, 2016 Visits Per Week: 10-11 Minutes/Day (M-F): 60-90 Minutes/Day (Sat/Braun): 15-30 Safety Risks/Education Patient Education: Gait Training, Transfer Techniques, Safety Issues Teaching Recipient: Patient Teaching Methods: Demonstration, Discussion Response to Teaching: Reinforcement Needed Time/GCodes Time In: 1300 Time Out: 1330 Total Billed Treatment Time: 30 Total Billed Treatment 1 visit GT 15 min EX 15 min KYLEIGH WEBSTER PT Jun 03, 2016 13:30
--- NOTE | 2016-06-03 15:27 | ST Cognitive Linguistic Eval ---
Speech Evaluation-General Medical Diagnosis CVA (left frontoparietal), R sided weakness Onset Date: May 30, 2016 Therapy Diagnosis Therapy Diagnosis: Severe Receptive Aphasia Precautions Precautions: Aspiration Precautions/Isolations: Fall Prevention, Standard Precautions Referral Referring Physician: Dr. Jovanny Davidson Reason for Referral: Evaluation/Treatment Cognitive, Speech, and Language Evaluation Medical History Pertinent Medical History: CVA, DM, HTN, Smoking Reviewed History: Yes Social History Current Living Status: Alone Speech PLF-Current Status Prior Level of Function Per patient's daughter, the patient did not demonstrate any challenges with speech, language, or cognition prior to her CVA on May 30, 2016. Subjective The patient was recently admitted to [facility] following a left fronto-parietal CVA resulting in receptive aphasia and right sided weakness. The patient greeted the clinician appropriately and agreed to participate in the cognitive, speech, and language evaluation on this date. Language Eval: Auditory Comprehends Simple Yes/No Ques: Severe Indent/Objects Multiple Watson: Severe Ident/Pics in Multiple Watson: Severe Follows 1-Step Commands: Moderate (The patient was able to follow one-step commands with direct modeling.) Follows Complex Directions: Severe Follows General Conversations: Severe Language Eval: Verbal Language Completes Spontaneous Greeting: Functional Produces Auto, Serial Info: Severe Imitates Simple Words/Phrases: Severe Word Finding: Mild Requests Basic Needs: Mild States Basic Personal Info: Moderate Expresses Complex Ideas: Severe Language Evaluation: Reading The patient was able to read aloud at the single word level, however, could not identify specific single words when prompted by clinician. Cognitive Patient Orientation The patient was unable to state orientation information secondary to marked receptive aphasia. Objective Cognitive Domain Due to the patient's significant receptive and expressive aphasia, a true score of cognitive level could not be obtained. Throughout informal conversation and interaction, the patient appears to demonstrate difficulty with attention and sequencing (the patient required maximum verbal prompting to place dentures correctly), however, additional domains could not be appropriately assessed. Objective Impression The patient demonstrated severe receptive aphasia (fluent aphasia) with challenges presented in the areas of simple yes/no questions, object identification, and orientation. Communication/Social Cognition Comprehension: 1 Expression: 3 Social Interaction: 5 Speech Patient Assess Expression of Ideas/Wants: Frequently (2) Understanding [place] Content: Rarely/Never Understand (1) Brief Interview-Mental Status: Yes Temporal Orientation: Year: No answer (0) Temporal Orientation: Month: No answer (0) Temporal Orientation: Day: Incorrect or No Answer(0) Recall : Wear to say "Sock": No, could not recall (0) Recall : Color: No, could not recall (0) Speech Short Term Goals Short Term Goals Short Term Goals 1. The patient will tolerate trials of the least restrictive consistency without signs/symptoms of aspiration. 2. The patient will demonstrate laryngeal, pharyngeal and base of tongue exercises with 80% accuracy, independently. 3. The patient will demonstrate swallowing strategies with 90% accuracy, independently. 4. The patient will state orientation information with 80% accuracy and moderate clinician verbal cueing. 5. The patient will respond to simple yes/no questions with 80% accuracy and moderate clinician verbal cueing. 6. The patient will follow simple, one-step commands with 80% accuracy and direct modeling. 7. Patient will state the name of common items with 80% accuracy and mild clinician cueing. Time Frame-STG: Three Weeks Speech Director Diabetes Goals Penitentiary Goals 1. The patient will tolerate the least restrictive diet without signs/symptoms of aspiration or laryngeal penetration. 2. The patient will demonstrate improved receptive language for increased function and safety with ADL's in the least restrictive environment. Time Frame: Four Weeks Comprehension: 3 Expression: 5 Social Interaction: 5 Problem Solvin Memory: 3 Speech-Plan Treatment Plan Speech Therapy Treatment Plan: Continue Plan of Care Continue skilled speech therapy to target receptive communication. Treatment Duration: Jul 01, 2016 # of days/week Five. Visits Per Week: Ten. Minutes/Day (M-F): 60 Rehab Potential: Guarded Safety Risks/Education Teaching Recipient: Patient Teaching Methods: Discussion Response to Teaching: Unable to Comprehend Education Topics Provided: Plan of Care, Results, Recommendations Time Speech Therapy Time In: 14:35 Speech Therapy Time Out: 14:50 Total Billed Time: 15 Billed Treatment Time 1, KARISHMA ORDOÑEZMICHELLE Jun 03, 2016 15:27
[2016-06-03 18:24] VITALS: BP 108/54
[2016-06-03] MEDS: ATORVASTATIN 80 MG (LIPITOR) TABLET PO SCH (20:50)
[2016-06-04 06:00] VITALS: BP 119/69
[2016-06-04] MEDS: GLIMEPIRIDE 2 MG (AMARYL) TAB PO SCH ×2 (06:06→16:54)
--- NOTE | 2016-06-04 08:18 | Progress Note (SOAP) ---
Subjective Subjective/Events-last exam stroke. Patient talking much better today. Patient was confused. Patient at time has a jerking motion of head and neck and extremities. Objective Exam Vital Signs Date Time Temp Pulse Resp B/P Pulse Ox O2 Delivery O2 Flow Rate FiO2 06/04/16 06:00 97.1 86 18 119/69 95 Room Air 06/03/16 21:00 Room Air 06/03/16 18:24 97.0 75 14 108/54 95 06/03/16 09:00 Room Air I & O 06/04/16 07:00 Intake Total 640 ml Output Total 500 ml Balance 140 ml Capillary Refill : General Appearance: No Apparent Distress WD/WN HEENT: Normal ENT Inspection Neck: Normal Inspection Respiratory: Chest Non Tender Lungs Clear Normal Breath Sounds No Accessory Muscle Use No Respiratory Distress Cardiovascular: Regular Rate, Rhythm No Murmur Gastrointestinal: non tender soft Results Lab Laboratory Tests 06/03/16 11:06: Glucometer 176H 06/03/16 15:29: Glucometer 143H 06/03/16 20:37: Glucometer 139H 06/04/16 05:41: Glucometer 129H Microbiology 06/03/16 Urine Culture - Preliminary, Resulted Probable Enterococcus Species Assessment/Plan Assessment/Plan Assess & Plan/Chief Complaint CVA. Confusion. History of pneumonia. Hypertension. Multiple lung nodules. Diabetes. . CVA. Confusion is less. History of pneumonia. Hypertension. Multiple lung nodules. Patient improving since seen yesterday Clinical Quality Measures DVT/VTE Risk/Contraindication: Risk Factor Score Per Nursin RFS Level Per Nursing on Admit: 4+=Very High LALO HERRERA DO Jun 04, 2016 08:18
--- NOTE | 2016-06-04 08:45 | Speech Therapy Daily Note ---
Speech Daily Progress Note Subjective The patient was sitting upright in bed upon entrance. The patient greeted the clinician appropriately and agreed to participate in speech and language therapy on this date. Objective Auditory Comprehension: Simple yes/no questions were poised to the patient in an auditory format, only. The patient demonstrated 0% accuracy with simple yes/ no questions in this format. Due to this, "yes" and "no" were written and placed in front of the patient. The patient could read the single words, however , continued to demonstrate 0% accuracy with simple yes/no questions. To increase visual input, the questions were written for the patient to read. The patient's accuracy significantly increased to 75% accuracy with mild clinician verbal cueing. At this time, the patient's most accurate responses are provided when written stimulus is given. Assessment Assessment Current Status: Fair Progress Treatment Plan Continue Plan of Care Communication Comprehension: 2 Expression: 3 Social Cognition Social Interaction: 4 Speech Short Term Goals Short Term Goals Short Term Goals 1. The patient will tolerate trials of the least restrictive consistency without signs/symptoms of aspiration. 2. The patient will demonstrate laryngeal, pharyngeal and base of tongue exercises with 80% accuracy, independently. 3. The patient will demonstrate swallowing strategies with 90% accuracy, independently. 4. The patient will state orientation information with 80% accuracy and moderate clinician verbal cueing. 5. The patient will respond to simple yes/no questions with 80% accuracy and moderate clinician verbal cueing. 6. The patient will follow simple, one-step commands with 80% accuracy and direct modeling. 7. Patient will state the name of common items with 80% accuracy and mild clinician cueing. Time Frame-STG: Three Weeks Speech Residential Goals Residential Goals 1. The patient will tolerate the least restrictive diet without signs/symptoms of aspiration or laryngeal penetration. 2. The patient will demonstrate improved receptive language for increased function and safety with ADL's in the least restrictive environment. Time Frame: Four Weeks Comprehension: 3 Expression: 5 Social Interaction: 5 Problem Solvin Memory: 3 Speech-Plan Treatment Plan Speech Therapy Treatment Plan: Continue Plan of Care Continue skilled speech therapy to focus on auditory comprehension and simple expressive communication. Treatment Duration: Jul 01, 2016 # of days/week Five. Visits Per Week: Ten. Minutes/Day (M-F): 60 Rehab Potential: Guarded Safety Risks/Education Teaching Recipient: Patient Teaching Methods: Demonstration, Discussion Response to Teaching: Verbalize Understanding, Reinforcement Needed Education Topics Provided: Discussion regarding highest level of comprehension stimulus (written). Time Speech Therapy Time In: 08:05 Speech Therapy Time Out: 08:35 Total Billed Time: 30 Billed Treatment Time 1, MICHELLE FRANCOIS Jun 04, 2016 08:45
[2016-06-04] MEDS: ASPIRIN E.C. 325 MG (ECOTRIN) TABLET PO SCH (08:48)
[2016-06-04] MEDS: CLOPIDOGREL 75 MG (PLAVIX) TABLET PO SCH (08:48)
[2016-06-04] MEDS: lisINopril 5 MG (PRINIVIL) TABLET PO SCH (08:48)
[2016-06-04] MEDS: CEPHALEXIN 250 MG (KEFLEX) CAP PO SCH ×3 (08:48→20:42)
--- NOTE | 2016-06-04 10:38 | Physical Therapy Daily Note ---
PT Daily Note-Current Subjective Pt supine in bed upon arrival. Pt confused but pleasant and agreed to PT. Mental Status Patient Orientation: Person, Confused Transfers Functional [place] Measure 0=Not Assessed/NA 4=Minimal Assistance 1=Total Assistance 5=Supervision or Setup 2=Maximal Assistance 6=Modified [place] 3=Moderate Assistance 7=Complete IndependenceIRFPAI Quality Coding Scale 6 Independent with activity with or without an assistive device 5 Patient requires set up or clean up by helper. Patient completes activity by themselves 4 Supervision or touching assist (CGA). [place] provide cues , steadying assist 3 The helper provides less than half the effort to complete the activity 2 The helper provides more than half the effort to complete the activity 1 Dependent. The helper does all the effort to complete an activity 7 Patient refused to complete or attempt activity 9 The patient did not perform the activity before the current illness or injury 88 Not attempted due to Medical conditions or safety concerns Transfers (B, C, W/C) (FIM): 5 Scootin Rollin Roll Left to Right (QC): 5 Supine to/from Sit: 5 Sit to/from Stand: 5 Sit to Lying (QC): 5 Sit to Stand (QC): 5 Weight Bearing Weight Bearing Restriction: Full Weight Bearing Location Restriction: LE Bilateral Gait Training Does the Patient Walk?: Yes Gait (FIM): 4 Distance (FIM): 3=150 ft Distance: 150' Walk 10 feet (QC): 4 Walk 50 ft with 2 Turns(QC): 4 Walk 150 ft (QC): 4 Gait Level of Assist: 4 Gait Persons Needed: 1 Gait Assistive Device: FWW Pt's [place] is slow but steady with no LOB. Pt tends to push FWW slightly to L but will self adjust after running into chair, etc with FWW. Wheelchair Training Does the Pt Use a Wheelchair?: No Exercises NuStep Minutes: 15 NuStep Workload: 5 Treatments Pt transfers at A and ambulates using FWW at [facility]. Pt uses NuStep for strengthening and activity tolerance improvement. Pt uses restroom in room on way to bed to rest. Pt is left supine in bed with head raised and all needs met at end of tx. Assessment Current Status: Fair Progress Pt continues to be confused during tx. Pt answer questions with response that is not appropriate for question asked. Pt has some difficulty following PT's instructions for tasks especially towards end of tx as pt fatigues. PT Short Term Goals Short Term Goals Time Frame: Jun 09, 2016 Gait (FIM): 4 Gait Distance Comment: 200' Gait Level of Assist: 4 (CGA) Gait Assistive Device: FWW PT Halfway Goals School Librarian Goals PT School Librarian Goals Time Frame: Jun 23, 2016 Transfers (B,C,W/C) (FIM): 5 Sit to Lying (QC): 6 Lying-Sitting on Side/Bed(QC): 6 Sit to Stand (QC): 4 Rollin Roll Left to Right (QC): 6 Car Transfer (QC): 4 Does the Patient Walk: Yes Gait (FIM): 5 Distance: 300' Walk 10 feet (QC): 4 Walk 10ft-Uneven Surface(QC): 4 Walk 50ft with 2 Turns (QC): 4 Walk 150 ft (QC): 4 Gait Level of Assist: 5 Gait Assistive Device: FWW Stairs (FIM): 2 # of Steps: 8 1 Step (curb) (QC): 4 4 Steps (QC): 4 12 Steps (QC): 88 Stairs Level Of Assist: 4 (CGA) Picking up an Object (QC): 88 PT Plan Problem List Problem List: Activity Tolerance, Functional Strength, Safety, Balance, Gait Treatment/Plan Treatment Plan: Continue Plan of Care Treatment Plan: Bed Mobility, Education, Functional Activity Lio, Functional Strength, Group Therapy, Gait, Safety, Therapeutic Exercise, Transfers Treatment Duration: Jun 23, 2016 Visits Per Week: 10-11 Minutes/Day (M-F): 60-90 Minutes/Day (Sat/Braun): 15-30 Safety Risks/Education Patient Education: Gait Training, Transfer Techniques, Correct Positioning, Safety Issues Teaching Recipient: Patient Teaching Methods: Discussion Response to Teaching: Verbalize Understanding Time/GCodes Time In: 850 Time Out: 935 Total Billed Treatment Time: 45 Total Billed Treatment visit, GT (15m), FA (15m) & EX (15m) RUBI KEATING PTA Jun 04, 2016 10:38
--- NOTE | 2016-06-04 10:58 | Speech Therapy Daily Note ---
Speech Daily Progress Note Subjective The patient was sitting up in bed upon entrance. The patient greeted the clinician appropriately and agreed to participate in the dysphagia therapy session on this date. To note, the patient's daughter, Livia, was present for the session. Objective Dysphagia Exercises: Dysphagia exercises were introduced, discussed, and demonstrated on this date. The patient was unable to complete exercises through verbal explanation alone. Once the written instructions were provided and a direct model was given, the patient was able to complete base of tongue, laryngeal elevation, and pharyngeal contraction exercises with 60% accuracy and maximum clinician verbal cueing. Treatment Plan Continue Plan of Care Communication Comprehension: 2 Expression: 3 Social Cognition Social Interaction: 4 Problem Solvin Memory: 2 Speech Short Term Goals Short Term Goals Short Term Goals 1. The patient will tolerate trials of the least restrictive consistency without signs/symptoms of aspiration. 2. The patient will demonstrate laryngeal, pharyngeal and base of tongue exercises with 80% accuracy, independently. 3. The patient will demonstrate swallowing strategies with 90% accuracy, independently. 4. The patient will state orientation information with 80% accuracy and moderate clinician verbal cueing. 5. The patient will respond to simple yes/no questions with 80% accuracy and moderate clinician verbal cueing. 6. The patient will follow simple, one-step commands with 80% accuracy and direct modeling. 7. Patient will state the name of common items with 80% accuracy and mild clinician cueing. Time Frame-STG: Three Weeks Speech It Data Architect Goals It Data Architect Goals 1. The patient will tolerate the least restrictive diet without signs/symptoms of aspiration or laryngeal penetration. 2. The patient will demonstrate improved receptive language for increased function and safety with ADL's in the least restrictive environment. Time Frame: Four Weeks Comprehension: 3 Expression: 5 Social Interaction: 5 Problem Solvin Memory: 3 Speech-Plan Treatment Plan Speech Therapy Treatment Plan: Continue Plan of Care Continued skilled speech therapy to target base of tongue, laryngeal elevation, and pharyngeal contraction strengthening exercises. Treatment Duration: Jul 01, 2016 # of days/week Five. Visits Per Week: Ten. Minutes/Day (M-F): 60 Rehab Potential: Guarded Safety Risks/Education Teaching Recipient: Patient, Family Teaching Methods: Demonstration, Handout, Discussion Response to Teaching: Return Demonstration, Reinforcement Needed Education Topics Provided: Swallowing Exercises Time Speech Therapy Time In: 09:30 Speech Therapy Time Out: 10:00 Total Billed Time: 30 Billed Treatment Time 1, DYST TIAGO,MICHELLE ST Jun 04, 2016 10:58
--- NOTE | 2016-06-04 12:52 | Occupational Ther Daily Note ---
OT Current Status-Daily Note Subjective Pt seen in room, up in bed, agreeable to OT. No pain mentioned. Appearance Alert, cooperative, cont with expressive/receptive aphasia Mental Status/Objective Functional [place] Measure 0=Not Assessed/NA 4=Minimal Assistance 1=Total Assistance 5=Supervision or Setup 2=Maximal Assistance 6=Modified [place] 3=Moderate Assistance 7=Complete [place] ADL-Treatment Functional [place] Measure 0=Not Assessed/NA 4=Minimal Assistance 1=Total Assistance 5=Supervision or Setup 2=Maximal Assistance 6=Modified [place] 3=Moderate Assistance 7=Complete IndependenceIRFPAI Quality Coding Scale 6 Independent with activity with or without an assistive device 5 Patient requires set up or clean up by helper. Patient completes activity by themselves 4 Supervision or touching assist (CGA). [place] provide cues , steadying assist 3 The helper provides less than half the effort to complete the activity 2 The helper provides more than half the effort to complete the activity 1 Dependent. The helper does all the effort to complete an activity 7 Patient refused to complete or attempt activity 9 The patient did not perform the activity before the current illness or injury 88 Not attempted due to Medical conditions or safety concerns Grooming (FIM): 5 (Combed hair setup. Washed face and hands during bath.) Bathing (FIM): 5 (Pt washed and dried all parts, sponge bath, setup. Occasional skilled cues needed to wash. Stood SBA to wash dianna and bottom. ) Upper Body (FIM): 5 (Doffed and donned shirt with setup, supervision. Able to get arms in openings correctly and shirt oriented correctly) Lower Body Dressing (FIM): 5 (SBA when standing to pull pants up/down. Struggled a little getting feet into top opening of Depends. Recognized pockets needed to be stuffed in. Slipper socks off/on. Supervision for sequencing) Other Treatment Pt stood with SBA, skilled cue to find walker with R hand. pt walked CGA/SBA with FWW to gym, needing directions to turn to the right about 50% of time. Does not watch where she is walking and almost ran into vitals equipment. In gym , able to sit and stand from chair with arms with SBA. Worked with colored block designs. Pt reported, "This doesn't make any sense. There's no winner." Pt used both hands equally to place blocks. Pt needed 50% visual and verbal cues to match blocks on designs initially but, after practice, was able to match design on pattern with only occasional cues and was able to verbalize color name. Did clip dominoes activity with clips same colors as blocks. Was able to follow directions and match colors about 90% by end of tx. She was pleased to get to "win" this activity. pt walked back to her room,CGA/SBA with FWW, with cues to turn to the right. Pt left up in recliner, chair alarm on, all needs met. Education OT Patient Education: Modified ADL techniques, Progress toward Goal/Update tx plan, Purpose of tx/functional activities Teaching Recipient: Patient Teaching Methods: Demonstration, Discussion Response to Teaching: Reinforcement Needed OT Short Term Goals Short Term Goals Time Frame: Jun 09, 2016 Grooming(FIM): 5 Lower Body Dressing(FIM): 5 Toileting(FIM): 5 1=Demonstrate adherence to instructed precautions during ADL tasks. 2=Patient will verbalize/demonstrate understanding of assistive devices/ modifications for ADL. 3=Patient will improve strength/tolerance for activity to enable patient to perform ADL's. OT Case Investigator Goals Fdc Goals Time Frame: Jun 27, 2016 Eating (FIM): 6 Eating (QC): 6 Groomin Oral Hygiene (QC): 6 Bathing(FIM): 5 Shower/Bathe Self (QC): 5 Upper Body Dressing(FIM): 6 Upper Body Dressing (QC): 6 Lower Body Dressing(FIM): 6 Lower Body Dressing (QC): 6 On/Off Footwear (QC): 6 Toileting(FIM): 6 Toileting Hygiene (QC): 6 Transfers (B,C,W/C) (FIM): 6 Toilet/Commode Transfer(FIM): 6 Toilet/Commode Transfer (QC): 6 Shower Transfer(FIM): 5 Comprehension(FIM): 3 Expression (FIM): 5 Social Interaction(FIM): 5 Problem Solving(FIM): 3 Memory(FIM): 3 Additional Goals: 2-Verbalize Understanding, 3-ImproveStrength/Lio (and coordination) 1=Demonstrate adherence to instructed precautions during ADL tasks. 2=Patient will verbalize/demonstrate understanding of assistive devices/ modifications for ADL. 3=Patient will improve strength/tolerance for activity to enable patient to perform ADL's. OT Education/Plan Discharge Recommendations Plan/Recommendations: Continue POC Treatment Plan/Plan of Care Patient would benefit from OT for education, treatment and training to promote independence in ADL's, mobility, safety and/or upper extremity function for ADL' s. Plan of Care: ADL Retraining, Cognitive Retraining, Functional Mobility, Group Exercise/Act as Ind (educaiton, exercise, communication, activity tolerance, socialization), UE Funct Exercise/Act, UE Neuromus Re-Ed/Coord, Visual/ Perceptual Retrain Treatment Duration: Jun 27, 2016 Visits Per Week: 10-11 Minutes/Day (M-F): 75-90 Minutes/Day (Sat/Braun): PRN Agreement: Yes Rehab Potential: Guarded Time/GCodes Start Time: 10:08 Stop Time: 11:08 Total Time Billed (hr/min): 60 Billed Treatment Time visit, 25 minutes ADL, 35 minutes neuromotor JACINDA PICKETT OT Jun 04, 2016 12:52
--- NOTE | 2016-06-04 14:39 | Therapy Group Daily Note ---
Therapy Daily Group Note Patient Education Topic Exercises (Benefits of Stretching) Exercises LE Seated Exercise, UE Exercise Other/Notes Pt ambulated to OT/PT group using FWW with CGA. Group consisted of introductions (name, place, own relaxation), socialization, education on stretching, UE/LE seated exercises, indoor signs/environmental Bingo. Pt actively participated in group. Pt was able to contribute to discussions each topic. Pt interacted with each peer appropriately. Pt required physical/ verbal cues to complete UE/LE exercises appropriately. Pt was able to manipulate bingo chips and follow directions throughout activities. Picture and verbal cues needed 50% of the time to find match. Pt fixated on one topic and unable to move on and focus on remainder of task. After group, pt ambulated back to room with CGA using FWW. Call light/phone in reach. All needs met in room. Start Time: 13:00 Stop Time: 14:05 Total Billed Treatment Time: 65 Total Billed Treatment 1-GRP SABRINA ROWLAND Jun 04, 2016 14:39
[2016-06-04 18:00] VITALS: BP 97/58
[2016-06-04] MEDS: ATORVASTATIN 80 MG (LIPITOR) TABLET PO SCH (20:42)
--- NOTE | 2016-06-04 20:48 | PM & R (SOAP) Progress Note ---
Subjective Subjective/Events-last exam Patient was seen in her room earlier today Still with significant receptive aphasia. Objective Exam Last Set of Vital Signs Vital Signs Date Time Temp Pulse Resp B/P Pulse Ox O2 Delivery O2 Flow Rate FiO2 06/04/16 18:00 97.4 81 18 97/58 94 Room Air Capillary Refill : I&O Intake and Output 06/04/16 00:00 Intake Total 450 ml Output Total 180 ml Balance 270 ml Intake Oral 450 ml Output Urine Total 180 ml # Voids 4 General: Alert, Cooperative, No Acute Distress HEENT: Atraumatic, PERRLA, EOMI, Mucous Memb Moist/[place], Other (Aphasia and Dysphagia) Neck: Supple, No JVD, Other (left CEA site healing well no drainage) Lungs: Clear to Auscultation Heart: Regular Rate Abdomen: Normal Bowel Sounds, Soft, No Tenderness Extremities: No Edema Neuro: Other (Mild rt sided weakness and dyscoordination as well as aphasia and dysphagia) Results Lab Laboratory Tests 06/03/16 05:25: Alanine Aminotransferase (ALT/SGPT) 15, Albumin 3.7, Alkaline Phosphatase 110, Anion Gap 13, Aspartate Amino Transf (AST/SGOT) 14, BUN/Creatinine Ratio 25, Basophils # (Auto) 0.1, Basophils (%) (Auto) 1, Blood Urea Nitrogen 27H, Calcium Level 9.8, Carbon Dioxide Level 23, Chloride Level 106, Creatinine 1.06 , Eosinophils # (Auto) 0.2, Eosinophils (%) (Auto) 2, Estimat Glomerular Filtration Rate 51, Glucose Level 159H, Hematocrit 43, Hemoglobin 14.3, Lymphocytes # (Auto) 2.1, Lymphocytes (%) (Auto) 16, Mean Corpuscular Hemoglobin 30, Mean Corpuscular Hemoglobin Concent 33, Mean Corpuscular Volume 90, Mean Platelet Volume 9.8, Monocytes # (Auto) 1.6H, Monocytes (%) (Auto) 12, Neutrophils # (Auto) 8.8H, Neutrophils (%) (Auto) 69, Platelet Count 303, Potassium Level 3.7, Red Blood Count 4.80, Red Cell Distribution Width 13.9, Sodium Level 142, Total Bilirubin 0.8, Total Protein 6.4, White Blood Count 12.8H 06/03/16 06:50: Urine Bacteria TRACE, Urine Bilirubin NEGATIVE, Urine Casts NONE, Urine Clarity CLEAR, Urine Color YELLOW, Urine Crystals NONE, Urine Culture Indicated YES, Urine Glucose (UA) NEGATIVE, Urine Ketones NEGATIVE, Urine Leukocyte Esterase 3+ H, Urine Mucus MODERATEH, Urine Nitrite NEGATIVE, Urine Protein 2+H, Urine RBC 5 -10H, Urine RBC (Auto) 5+H, Urine Specific [place] 1.025H, Urine Squamous Epithelial Cells 5-10, Urine Urobilinogen NORMAL, Urine WBC 10-25H, Urine pH 5 06/03/16 11:06: Glucometer 176H 06/03/16 15:29: Glucometer 143H 06/03/16 20:37: Glucometer 139H 06/04/16 05:41: Glucometer 129H 06/04/16 11:06: Glucometer 151H 06/04/16 15:45: Glucometer 198H 06/04/16 20:19: Glucometer 147H Microbiology 06/03/16 Urine Culture - Preliminary, Resulted Enterococcus Faecalis Probable Actinomyces Assessment/Plan Assessment 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 INGE MILLER MD Jun 04, 2016 20:48
--- NOTE | 2016-06-04 21:08 | Individualized Plan of Care ---
Individualized Plan of Care Rehab Nursing IPOC Order Admission Date Jun 02, 2016 at 15:25 Current Orders Patient Visit (06/04/16 ) Exercise Therap, Ea 15 Min (06/04/16 ) Gait Training, Ea 15 Min (06/04/16 ) Functional Activities, Ea 15 (06/04/16 ) Patient Visit (06/04/16 ) Treat. Speech/Lang/Voice (06/04/16 ) Patient Visit (06/04/16 ) Dysphagia Therapy (06/04/16 ) Rehab Nursing Orders: Bladder Program, Bowel Program, Diseage Management, Edu in Press Rel Techn, Hydration Management, Nutrition Management Toilet every (bladder): (hrs): q 2 hours while awake PT IPOC Problem List: Activity Tolerance, Functional Strength, Safety, Balance, Gait Treatment Plan: Continue Plan of Care Bed Mobility, Education, Functional Activity Lio, Functional Strength, Group Therapy, Gait, Safety, Therapeutic Exercise, Transfers Treatment Duration: Jun 23, 2016 Visits Per Week: 10-11 Minutes/Day (M-F): 60-90 Minutes/Day (Sat/Braun): 15-30 OT IPOC Problems: Decreased Activ Tolerance, Decreased Safety Aware (Fall risk, impulsive), Decreased UE Strength, Dependent Transfers, Impaired Cognition ( expressive and receptive aphasia), Impaired Coordination, Impaired Funct Balance , Impaired Self-Care Skills, Visual-Perceptual Deficit (R sided neglect, possible visual field deficit) Plan of Care: ADL Retraining, Cognitive Retraining, Functional Mobility, Group Exercise/Act as Ind (educaiton, exercise, communication, activity tolerance, socialization), UE Funct Exercise/Act, UE Neuromus Re-Ed/Coord, Visual/ Perceptual Retrain Treatment Duration: Jun 27, 2016 Visits Per Week: 10-11 Minutes/Day (M-F): 75-90 Minutes/Day (Sat/Braun): PRN ST IPOC Speech Therapy Treatment Plan: Continue Plan of Care Treatment Duration: Jul 01, 2016 Visits Per Week: Ten. Minutes/Day (M-F): 60 Physician IPOC Medical Issues being managed closely and that require the 24 hour availability of a physician:Treatment of UTI Management of DM Medical Issues: Bowel/Bladder Function, DVT Prophylaxis, Falls Precautions, Fluid/Electrolyte/Nutrition Balance, Infection Protection, Pain Management, Swallowing Precautions, Other (List) (as per above) Brief Synthesis of Preadmission Screen, Post-Admission Evaluation, and Therapy Evaluations: 71 yo female s/p Cva with Receptive aphasia and Dysphagia who has had a decline in Functional [place] due to this Had been living alone but her daughter who works lives next door Medical Prognosis: good Anticipated Length of Stay: 07/01/16 Rehab Goals Modified Independent to supervision for ADLS and Mobility skills with improved swallow and Communication skills Anticipated discharge destinat: [facility] INGE MILLER MD Jun 04, 2016 21:08
[2016-06-05 05:30] VITALS: BP 111/63
[2016-06-05] MEDS: GLIMEPIRIDE 2 MG (AMARYL) TAB PO SCH ×2 (06:36→17:00)
--- NOTE | 2016-06-05 08:23 | Progress Note (SOAP) ---
Subjective Subjective/Events-last exam patient doing better and feeling better. infection to give amoxicillin. Patient is speaking better. Patient cannot tell me where she lives Objective Exam Vital Signs Date Time Temp Pulse Resp B/P Pulse Ox O2 Delivery O2 Flow Rate FiO2 06/05/16 05:30 97.5 63 20 111/63 96 Room Air 06/04/16 20:45 Room Air 06/04/16 18:00 97.4 81 18 97/58 94 Room Air 06/04/16 09:00 Room Air I & O 06/05/16 07:00 Intake Total 740 ml Balance 740 ml Capillary Refill : General Appearance: No Apparent Distress WD/WN HEENT: Normal ENT Inspection Neck: Full Range of Motion Non Tender Respiratory: Chest Non Tender No Accessory Muscle Use No Respiratory Distress Cardiovascular: Regular Rate, Rhythm No Murmur Results Lab Laboratory Tests 06/04/16 11:06: Glucometer 151H 06/04/16 15:45: Glucometer 198H 06/04/16 20:19: Glucometer 147H 06/05/16 05:17: Glucometer 120H Microbiology 06/03/16 Urine Culture - Final, Complete Enterococcus Faecalis Probable Actinomyces Assessment/Plan Assessment/Plan Assess & Plan/Chief Complaint CVA. Confusion. History of pneumonia. Hypertension. Multiple lung nodules. Diabetes. . CVA. Confusion is less. History of pneumonia. Hypertension. Multiple lung nodules. Patient improving since seen yesterday. . 06/05. CVA. Confusion much better. History of pneumonia. Diabetes. Patient communicating better. Patient doesn't know her address where she lives. But she can write if Clinical Quality Measures DVT/VTE Risk/Contraindication: Risk Factor Score Per Nursin RFS Level Per Nursing on Admit: 4+=Very High LALO HERRERA DO Jun 05, 2016 08:23
[2016-06-05] MEDS: ASPIRIN E.C. 325 MG (ECOTRIN) TABLET PO SCH (09:02)
[2016-06-05] MEDS: CLOPIDOGREL 75 MG (PLAVIX) TABLET PO SCH (09:02)
[2016-06-05] MEDS: lisINopril 5 MG (PRINIVIL) TABLET PO SCH (09:02)
--- NOTE | 2016-06-05 10:00 | Physical Therapy Daily Note ---
PT Daily Note-Current Subjective Patient in recliner pre tx, agrees to PT, patient has no complaints of pain. She seems to be communicating a little better this morning. Appearance Patient in recliner post tx, chair alarm on , nurse call, phone, tray, daughter in the room. Mental Status Patient Orientation: Unable to Assess Transfers Functional [place] Measure 0=Not Assessed/NA 4=Minimal Assistance 1=Total Assistance 5=Supervision or Setup 2=Maximal Assistance 6=Modified [place] 3=Moderate Assistance 7=Complete IndependenceIRFPAI Quality Coding Scale 6 Independent with activity with or without an assistive device 5 Patient requires set up or clean up by helper. Patient completes activity by themselves 4 Supervision or touching assist (CGA). [place] provide cues , steadying assist 3 The helper provides less than half the effort to complete the activity 2 The helper provides more than half the effort to complete the activity 1 Dependent. 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 Exercises Standing: Hip Abduction, Hamstring curls, Heel/toe raises, Marching, Mini squats Standing Reps: 20 LAQ alternating with 2# ankle weights for 5 min NuStep Minutes: 20 NuStep Workload: 5 Treatments ambulation, transfers, functional strengthening Assessment Current Status: Fair Progress Patient displays improving endurance, communication, mobility in general. PT Short Term Goals Short Term Goals Time Frame: Jun 09, 2016 Gait (FIM): 4 Gait Distance Comment: 200' Gait Level of Assist: 4 (CGA) Gait Assistive Device: FWW PT Senior Care Goals Senior Care Goals PT Senior Care Goals Time Frame: Jun 23, 2016 Transfers (B,C,W/C) (FIM): 5 Sit to Lying (QC): 6 Lying-Sitting on Side/Bed(QC): 6 Sit to Stand (QC): 4 Rollin Roll Left to Right (QC): 6 Car Transfer (QC): 4 Does the Patient Walk: Yes Gait (FIM): 5 Distance: 300' Walk 10 feet (QC): 4 Walk 10ft-Uneven Surface(QC): 4 Walk 50ft with 2 Turns (QC): 4 Walk 150 ft (QC): 4 Gait Level of Assist: 5 Gait Assistive Device: FWW Stairs (FIM): 2 # of Steps: 8 1 Step (curb) (QC): 4 4 Steps (QC): 4 12 Steps (QC): 88 Stairs Level Of Assist: 4 (CGA) Picking up an Object (QC): 88 PT Plan Problem List Problem List: Activity Tolerance, Functional Strength, Safety, Balance, Gait, Transfer Treatment/Plan Treatment Plan: Continue Plan of Care Treatment Plan: Bed Mobility, Education, Functional Activity Lio, Functional Strength, Group Therapy, Gait, Safety, Therapeutic Exercise, Transfers Treatment Duration: Jun 23, 2016 Visits Per Week: 10-11 Minutes/Day (M-F): 60-90 Minutes/Day (Sat/Braun): 15-30 Safety Risks/Education Patient Education: Gait Training, Transfer Techniques, Safety Issues Teaching Recipient: Patient Teaching Methods: Demonstration, Discussion Response to Teaching: Reinforcement Needed Time/GCodes Time In: 800 Time Out: 900 Total Billed Treatment Time: 60 Total Billed Treatment 1 visit EX 45 min GT 15 min KYLEIGH WEBSTER PT Jun 05, 2016 10:00
--- NOTE | 2016-06-05 10:02 | Speech Therapy Daily Note ---
Speech Daily Progress Note Subjective The patient was seated upright in recliner upon entrance. The patient greeted the clinician appropriately and agreed to participate in the dysphagia and language treatment session on this date. To note, the patient's daughter was present for the treatment. Objective Dysphagia: - Oral Bolus Trials: The patient was reassessed with thin liquids (ice chips and water) and nectar-thick liquids (thickened Pepsi). Results are as follows: Thin Liquid (via ice chip, teaspoon, and cup sip): No signs/symptoms of aspiration were demonstrated with multiple boluses of thin liquid. The patient' s vocal quality remained clear. [place]-Thick Liquid: No signs/symptoms of aspiration were demonstrated with multiple boluses of nectar-thick liquid tested. The patient's vocal quality remained clear. - Recommendations: Regular consistency diet with thin liquids, as tolerated. No straws. Crush (or whole) medication and place in puree for administration. Small bites and sips. Alert and upright for all PO intake. - Dysphagia Exercises: Dysphagia exercises were continued on this date. Once direct modeling was provided, the patient demonstrated fair to good accuracy with base of tongue, pharyngeal contraction, and laryngeal elevation exercises. Five to ten repetitions of each exercise were performed. Language: - Yes/No: Simple yes/no questions were continued on this date. The patient continued to demonstrate difficulty with auditory comprehension, however, accuracy increased when the patient was provided the question in writing. Patient completed this task with 80% accuracy and mild clinician verbal cueing. - One and Two-Step Simple Commands: The patient demonstrated simple one and two step commands with 85% accuracy and mild clinician cueing. - Picture Naming: The patient demonstrated 100% accuracy with picture naming on this date (independently). Assessment Assessment Current Status: Good Progress Treatment Plan Continue Plan of Care Communication Comprehension: 2 Expression: 3 Social Cognition Social Interaction: 4 Problem Solvin Memory: 2 Speech Short Term Goals Short Term Goals Short Term Goals 1. The patient will tolerate trials of the least restrictive consistency without signs/symptoms of aspiration. MET 06/05/2016 2. The patient will demonstrate laryngeal, pharyngeal and base of tongue exercises with 80% accuracy, independently. PROGRESSING 3. The patient will demonstrate swallowing strategies with 90% accuracy, independently. PROGRESSING 4. The patient will state orientation information with 80% accuracy and moderate clinician verbal cueing. PROGRESSING 5. The patient will respond to simple yes/no questions with 80% accuracy and moderate clinician verbal cueing. MET 06/05/2016 6. The patient will follow simple, one-step commands with 80% accuracy and direct modeling. MET 06/05/2016 7. Patient will state the name of common items with 80% accuracy and mild clinician cueing. MET 06/05/2016 Time Frame-STG: Three Weeks Speech Planning Director Goals Long-Term Goals 1. The patient will tolerate the least restrictive diet without signs/symptoms of aspiration or laryngeal penetration. 2. The patient will demonstrate improved receptive language for increased function and safety with ADL's in the least restrictive environment. Time Frame: Four Weeks Comprehension: 3 Expression: 5 Social Interaction: 5 Problem Solvin Memory: 3 Speech-Plan Treatment Plan Speech Therapy Treatment Plan: Continue Plan of Care Continue skilled speech therapy to target auditory comprehension and functional safety problem solving. Treatment Duration: Jul 01, 2016 # of days/week Five. Visits Per Week: Ten. Minutes/Day (M-F): 60 Rehab Potential: Guarded Safety Risks/Education Teaching Recipient: Patient, Family Teaching Methods: Discussion Response to Teaching: Verbalize Understanding Education Topics Provided: Progress towards goals. Time Speech Therapy Time In: 08:00 Speech Therapy Time Out: 09:00 Total Billed Time: 60 Billed Treatment Time 1, SLJOHN 1, MICHELLE DE LA PAZ Jun 05, 2016 10:02
--- NOTE | 2016-06-05 11:01 | Occupational Ther Daily Note ---
OT Current Status-Daily Note Subjective Pt alert, sitting in chair. Daughter present in room. Pt agreed to therapy. No c/o pain. Mental Status/Objective Patient Orientation: Person, Place, Time, Situation Functional [place] Measure 0=Not Assessed/NA 4=Minimal Assistance 1=Total Assistance 5=Supervision or Setup 2=Maximal Assistance 6=Modified [place] 3=Moderate Assistance 7=Complete [place] ADL-Treatment Functional [place] Measure 0=Not Assessed/NA 4=Minimal Assistance 1=Total Assistance 5=Supervision or Setup 2=Maximal Assistance 6=Modified [place] 3=Moderate Assistance 7=Complete IndependenceIRFPAI Quality Coding Scale 6 Independent with activity with or without an assistive device 5 Patient requires set up or clean up by helper. Patient completes activity by themselves 4 Supervision or touching assist (CGA). [place] provide cues , steadying assist 3 The helper provides less than half the effort to complete the activity 2 The helper provides more than half the effort to complete the activity 1 Dependent. The helper does all the effort to complete an activity 7 Patient refused to complete or attempt activity 9 The patient did not perform the activity before the current illness or injury 88 Not attempted due to Medical conditions or safety concerns Other Treatment Pt ambulated to therapy with SBA using FWW. Pt completed arm bike 15 min at 20 arce resistance to increase strength and activity tolerance for daily functional tasks. Tactile cue used on R handle to remind pt to keep event organizer on arm bike handle. Pt then complete cognitive tasks working on sequencing and problem solving. Pt was able to complete ABIMAEL patterns after 1 demonstration with resistive pegs. Then complete 9 piece interconnecting puzzle by self. Pt given supplies to shape a square, unable to complete without model, physical or verbal cues. Pt is able to manipulate items though could not sequence steps to shape a square with wooden pieces. Pt then worked on following 1 step directions. Gave directions then distracted pt for 3 min then asked where to go. Pt was able to complete without difficulty. After therapy, pt sitting in recliner with daughter present. All needs met in room. OT Short Term Goals Short Term Goals Time Frame: Jun 09, 2016 Grooming(FIM): 5 Lower Body Dressing(FIM): 5 Toileting(FIM): 5 1=Demonstrate adherence to instructed precautions during ADL tasks. 2=Patient will verbalize/demonstrate understanding of assistive devices/ modifications for ADL. 3=Patient will improve strength/tolerance for activity to enable patient to perform ADL's. OT Leather Lacer Goals Leather Lacer Goals Time Frame: Jun 27, 2016 Eating (FIM): 6 Eating (QC): 6 Groomin Oral Hygiene (QC): 6 Bathing(FIM): 5 Shower/Bathe Self (QC): 5 Upper Body Dressing(FIM): 6 Upper Body Dressing (QC): 6 Lower Body Dressing(FIM): 6 Lower Body Dressing (QC): 6 On/Off Footwear (QC): 6 Toileting(FIM): 6 Toileting Hygiene (QC): 6 Transfers (B,C,W/C) (FIM): 6 Toilet/Commode Transfer(FIM): 6 Toilet/Commode Transfer (QC): 6 Shower Transfer(FIM): 5 Comprehension(FIM): 3 Expression (FIM): 5 Social Interaction(FIM): 5 Problem Solving(FIM): 3 Memory(FIM): 3 Additional Goals: 2-Verbalize Understanding, 3-ImproveStrength/Lio (and coordination) 1=Demonstrate adherence to instructed precautions during ADL tasks. 2=Patient will verbalize/demonstrate understanding of assistive devices/ modifications for ADL. 3=Patient will improve strength/tolerance for activity to enable patient to perform ADL's. OT Education/Plan Discharge Recommendations Plan/Recommendations: Continue POC Treatment Plan/Plan of Care Patient would benefit from OT for education, treatment and training to promote independence in ADL's, mobility, safety and/or upper extremity function for ADL' s. Plan of Care: ADL Retraining, Cognitive Retraining, Functional Mobility, Group Exercise/Act as Ind (educaiton, exercise, communication, activity tolerance, socialization), UE Funct Exercise/Act, UE Neuromus Re-Ed/Coord, Visual/ Perceptual Retrain Treatment Duration: Jun 27, 2016 Visits Per Week: 10-11 Minutes/Day (M-F): 75-90 Minutes/Day (Sat/Braun): PRN Agreement: Yes Rehab Potential: Guarded Time/GCodes Start Time: 10:00 Stop Time: 11:00 Total Time Billed (hr/min): 60 Billed Treatment Time 1 visit-EX 2 (30 min) NM 2 (30 min) SABRINA ROWLAND Jun 05, 2016 11:00
[2016-06-05] MEDS: LEVOFLOXACIN 500 MG TAB (LEVAQUIN) PO SCH (11:52)
--- NOTE | 2016-06-05 11:53 | PM & R (SOAP) Progress Note ---
Subjective Subjective/Events-last exam Patient was seen in her room this AM with her daughter Patient SBA for gait with walker Patient c/o tremors involving head and as seen by this Physician - Would try low dose Inderal but Blood pressure runs low -Will check re other options Objective Exam Last Set of Vital Signs Vital Signs Date Time Temp Pulse Resp B/P Pulse Ox O2 Delivery O2 Flow Rate FiO2 06/05/16 09:05 Room Air 06/05/16 05:30 97.5 63 20 111/63 96 Capillary Refill : I&O Intake and Output 06/05/16 00:00 Intake Total 780 ml Output Total 500 ml Balance 280 ml Intake Oral 780 ml Output Urine Total 500 ml # Voids 5 # Bowel Movements 1 General: Alert, Cooperative, No Acute Distress HEENT: Atraumatic, PERRLA, EOMI, Mucous Memb Moist/[place], Other (Aphasia and Dysphagia) Neck: Supple, No JVD, Other (left CEA site healing well no drainage) Lungs: Clear to Auscultation Heart: Regular Rate Abdomen: Normal Bowel Sounds, Soft, No Tenderness Extremities: No Edema Neuro: Other (Mild rt sided weakness and dyscoordination as well as aphasia and dysphagia) Results Lab Laboratory Tests 06/03/16 05:25: Alanine Aminotransferase (ALT/SGPT) 15, Albumin 3.7, Alkaline Phosphatase 110, Anion Gap 13, Aspartate Amino Transf (AST/SGOT) 14, BUN/Creatinine Ratio 25, Basophils # (Auto) 0.1, Basophils (%) (Auto) 1, Blood Urea Nitrogen 27H, Calcium Level 9.8, Carbon Dioxide Level 23, Chloride Level 106, Creatinine 1.06 , Eosinophils # (Auto) 0.2, Eosinophils (%) (Auto) 2, Estimat Glomerular Filtration Rate 51, Glucose Level 159H, Hematocrit 43, Hemoglobin 14.3, Lymphocytes # (Auto) 2.1, Lymphocytes (%) (Auto) 16, Mean Corpuscular Hemoglobin 30, Mean Corpuscular Hemoglobin Concent 33, Mean Corpuscular Volume 90, Mean Platelet Volume 9.8, Monocytes # (Auto) 1.6H, Monocytes (%) (Auto) 12, Neutrophils # (Auto) 8.8H, Neutrophils (%) (Auto) 69, Platelet Count 303, Potassium Level 3.7, Red Blood Count 4.80, Red Cell Distribution Width 13.9, Sodium Level 142, Total Bilirubin 0.8, Total Protein 6.4, White Blood Count 12.8H 06/03/16 06:50: Urine Bacteria TRACE, Urine Bilirubin NEGATIVE, Urine Casts NONE, Urine Clarity CLEAR, Urine Color YELLOW, Urine Crystals NONE, Urine Culture Indicated YES, Urine Glucose (UA) NEGATIVE, Urine Ketones NEGATIVE, Urine Leukocyte Esterase 3+ H, Urine Mucus MODERATEH, Urine Nitrite NEGATIVE, Urine Protein 2+H, Urine RBC 5 -10H, Urine RBC (Auto) 5+H, Urine Specific [place] 1.025H, Urine Squamous Epithelial Cells 5-10, Urine Urobilinogen NORMAL, Urine WBC 10-25H, Urine pH 5 06/03/16 11:06: Glucometer 176H 06/03/16 15:29: Glucometer 143H 06/03/16 20:37: Glucometer 139H 06/04/16 05:41: Glucometer 129H 06/04/16 11:06: Glucometer 151H 06/04/16 15:45: Glucometer 198H 06/04/16 20:19: Glucometer 147H 06/05/16 05:17: Glucometer 120H Microbiology 06/03/16 Urine Culture - Final, Complete Enterococcus Faecalis Probable Actinomyces Assessment/Plan Assessment 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 INGE MILLER MD Jun 05, 2016 11:53
[2016-06-05] MEDS: NICOTINE 14 MG (NICODERM) PATCH TD SCH (17:00)
[2016-06-05 18:24] VITALS: BP 128/68
[2016-06-05] MEDS: ATORVASTATIN 80 MG (LIPITOR) TABLET PO SCH (20:28)
[2016-06-06] MEDS: GLIMEPIRIDE 2 MG (AMARYL) TAB PO SCH ×2 (06:30→15:56)
[2016-06-06 06:32] VITALS: BP 111/65
--- NOTE | 2016-06-06 08:08 | Progress Note (SOAP) ---
Subjective Subjective/Events-last exam stroke. Patient still does not know her address at home. Patient is speaking better. Patient is not answering questions better.. Patient working progress Objective Exam Vital Signs Date Time Temp Pulse Resp B/P Pulse Ox O2 Delivery O2 Flow Rate FiO2 06/06/16 06:32 97.5 68 20 111/65 98 Room Air 06/05/16 20:35 Room Air 06/05/16 18:24 96.2 69 16 128/68 96 06/05/16 09:05 Room Air I & O 06/06/16 07:00 Intake Total 1080 ml Balance 1080 ml Capillary Refill : General Appearance: No Apparent Distress WD/WN HEENT: Normal ENT Inspection Neck: Normal Inspection Respiratory: Chest Non Tender Lungs Clear Normal Breath Sounds No Accessory Muscle Use No Respiratory Distress Cardiovascular: Regular Rate, Rhythm No Murmur Gastrointestinal: non tender soft Results Lab Laboratory Tests 06/05/16 11:26: Glucometer 221H 06/05/16 16:04: Glucometer 170H 06/05/16 20:09: Glucometer 142H 06/06/16 05:32: Glucometer 89 Microbiology 06/03/16 Urine Culture - Final, Complete Enterococcus Faecalis Probable Actinomyces Assessment/Plan Assessment/Plan Assess & Plan/Chief Complaint CVA. Confusion. History of pneumonia. Hypertension. Multiple lung nodules. Diabetes. . CVA. Confusion is less. History of pneumonia. Hypertension. Multiple lung nodules. Patient improving since seen yesterday. . 06/05. CVA. Confusion much better. History of pneumonia. Diabetes. Patient communicating better. Patient doesn't know her address where she lives. But she can write if. . 06/06/16. CVA. Patient still does not know her address at home. History of pneumonia. Diabetes Clinical Quality Measures DVT/VTE Risk/Contraindication: Risk Factor Score Per Nursin RFS Level Per Nursing on Admit: 4+=Very High LALO HERRERA DO Jun 06, 2016 08:08
--- NOTE | 2016-06-06 08:12 | PM & R (SOAP) Progress Note ---
Subjective Subjective/Events-last exam Patient was seen in her room this AM Still c/o tremors involving head which are transient-Blood presuure and pulse tend to be low normal-Will try low dose Beta ervin for essential tremor and monitor Vital signs.Patient SBA for transfers and gait Objective Exam Last Set of Vital Signs Vital Signs Date Time Temp Pulse Resp B/P Pulse Ox O2 Delivery O2 Flow Rate FiO2 06/06/16 06:32 97.5 68 20 111/65 98 Room Air Capillary Refill : I&O Intake and Output 06/06/16 00:00 Intake Total 980 ml Balance 980 ml Intake Oral 980 ml # Voids 6 # Bowel Movements 1 General: Alert, Cooperative, No Acute Distress HEENT: Atraumatic, PERRLA, EOMI, Mucous Memb Moist/[place], Other (Aphasia and Dysphagia) Neck: Supple, No JVD, Other (left CEA site healing well no drainage) Lungs: Clear to Auscultation Heart: Regular Rate Abdomen: Normal Bowel Sounds, Soft, No Tenderness Extremities: No Edema Neuro: Other (Mild rt sided weakness and dyscoordination as well as aphasia and dysphagia) Results Lab Laboratory Tests 06/03/16 11:06: Glucometer 176H 06/03/16 15:29: Glucometer 143H 06/03/16 20:37: Glucometer 139H 06/04/16 05:41: Glucometer 129H 06/04/16 11:06: Glucometer 151H 06/04/16 15:45: Glucometer 198H 06/04/16 20:19: Glucometer 147H 06/05/16 05:17: Glucometer 120H 06/05/16 11:26: Glucometer 221H 06/05/16 16:04: Glucometer 170H 06/05/16 20:09: Glucometer 142H 06/06/16 05:32: Glucometer 89 Microbiology 06/03/16 Urine Culture - Final, Complete Enterococcus Faecalis Probable Actinomyces Assessment/Plan Assessment Left cva with Rt HP mild and aphasia and dysphagia UTI on antibioitc HTN controlled / S/P Left CEA foe coritid Artery D DM controlled Tremors Plan Continue PT/OT/ST Diet advanced as per ST recs Team Conference held 06-04-16-see report for full functional update and POC UTI-under treaTMENT aPPRECXIATE dr Arias NOTE AND ORDERS F/U re tremors-trial of low dose Beta ervin see orders, Overall patient progressing well with speech improving daily. INGE MILLER MD Jun 06, 2016 08:12
[2016-06-06] MEDS: NICOTINE 14 MG (NICODERM) PATCH TD SCH (08:28)
[2016-06-06] MEDS: NICOTINE PATCH REMOVAL TP SCH (08:28)
[2016-06-06] MEDS: lisINopril 5 MG (PRINIVIL) TABLET PO SCH (08:29)
[2016-06-06] MEDS: ASPIRIN E.C. 325 MG (ECOTRIN) TABLET PO SCH (08:29)
[2016-06-06] MEDS: CLOPIDOGREL 75 MG (PLAVIX) TABLET PO SCH (08:29)
[2016-06-06] MEDS: PROPRANOLOL 20 MG (INDERAL) TABLET PO SCH (08:30)
[2016-06-06 08:31] VITALS: BP 117/72
--- NOTE | 2016-06-06 10:02 | Physical Therapy Daily Note ---
PT Daily Note-Current Subjective Patient in bed pre tx, agrees to PT. Patient does not have any complaints of pain but states it feels like her heart is beating hard. Her BP is 127/70 and HR is 70bpm. Nurse notified. Appearance Patient in bed post tx with nurse call, phone, tray, bed alarm on, all needs met. Mental Status Patient Orientation: Unable to Assess Transfers Functional [place] Measure 0=Not Assessed/NA 4=Minimal Assistance 1=Total Assistance 5=Supervision or Setup 2=Maximal Assistance 6=Modified [place] 3=Moderate Assistance 7=Complete IndependenceIRFPAI Quality Coding Scale 6 Independent with activity with or without an assistive device 5 Patient requires set up or clean up by helper. Patient completes activity by themselves 4 Supervision or touching assist (CGA). [place] provide cues , steadying assist 3 The helper provides less than half the effort to complete the activity 2 The helper provides more than half the effort to complete the activity 1 Dependent. The helper does all the effort to complete an activity 7 Patient refused to complete or attempt activity 9 The patient did not perform the activity before the current illness or injury 88 Not attempted due to Medical conditions or safety concerns Transfers (B, C, W/C) (FIM): 5 Scootin Rollin Supine to/from Sit: 6 Sit to/from Stand: 5 cues for hand placement and safety, patient will almost always pull from the walker to stand, patient was also toileted Gait Training Gait (FIM): 5 Distance: 300'x2 Gait Level of Assist: 5 Gait Persons Needed: 1 Gait Assistive Device: FWW Cues for safety and direction, patient needs visual cues. Stair Training Stair Training: Handrails/: 2 handrails Stairs (FIM): 5 #of Steps: 12 Stairs: Pattern: Step to Level of Assist: 5 Exercises Seated Therapy Exercises: Ankle pumps, Hip flexion Seated Reps: 20 LAQ alternating with 2# ankle weights for 5 min NuStep Minutes: 15 NuStep Workload: 5 Treatments ambulation, bed mobility and transfers, functional strengthening, stair training , patient was toileted once Assessment Current Status: Fair Progress improving balance and mobility, however, patient is starting to become irritated with having to participate in therapies PT Short Term Goals Short Term Goals Time Frame: Jun 09, 2016 Gait (FIM): 4 Gait Distance Comment: 200' Gait Level of Assist: 4 (CGA) Gait Assistive Device: FWW PT Usp Goals Muck Farmer Goals PT Usp Goals Time Frame: Jun 23, 2016 Transfers (B,C,W/C) (FIM): 5 Sit to Lying (QC): 6 Lying-Sitting on Side/Bed(QC): 6 Sit to Stand (QC): 4 Rollin Roll Left to Right (QC): 6 Car Transfer (QC): 4 Does the Patient Walk: Yes Gait (FIM): 5 Distance: 300' Walk 10 feet (QC): 4 Walk 10ft-Uneven Surface(QC): 4 Walk 50ft with 2 Turns (QC): 4 Walk 150 ft (QC): 4 Gait Level of Assist: 5 Gait Assistive Device: FWW Stairs (FIM): 2 # of Steps: 8 1 Step (curb) (QC): 4 4 Steps (QC): 4 12 Steps (QC): 88 Stairs Level Of Assist: 4 (CGA) Picking up an Object (QC): 88 PT Plan Problem List Problem List: Activity Tolerance, Functional Strength, Safety, Balance, Gait, Transfer Treatment/Plan Treatment Plan: Continue Plan of Care Treatment Plan: Bed Mobility, Education, Functional Activity Lio, Functional Strength, Group Therapy, Gait, Safety, Therapeutic Exercise, Transfers Treatment Duration: Jun 23, 2016 Visits Per Week: 10-11 Minutes/Day (M-F): 60-90 Minutes/Day (Sat/Braun): 15-30 Safety Risks/Education Patient Education: Gait Training, Transfer Techniques, Steps, Safety Issues Teaching Recipient: Patient Teaching Methods: Demonstration, Discussion Response to Teaching: Reinforcement Needed Time/GCodes Time In: 900 Time Out: 1000 Total Billed Treatment Time: 60 Total Billed Treatment 1 visit GT 15 min EX 30 min FA 15 min KYLEIGH WEBSTER PT Jun 06, 2016 10:02
--- NOTE | 2016-06-06 11:12 | Occupational Ther Daily Note ---
OT Current Status-Daily Note Subjective Pt alert, lying in bed. Pt agreed to therapy. No c/o pain at this time. Mental Status/Objective Patient Orientation: Person, Situation Functional [place] Measure 0=Not Assessed/NA 4=Minimal Assistance 1=Total Assistance 5=Supervision or Setup 2=Maximal Assistance 6=Modified [place] 3=Moderate Assistance 7=Complete [place] ADL-Treatment Pt agreed to shower. Ambulated with FWW to bathroom (SBA) then transferred to toilet using FWW and grabbar. Pt doffed clothing by self. Cues to ambulate to shower with FWW then SBA to transfer into shower using FWW, grabbars and shower bench. Pt bathed self with supervision using shower bench, hand held shower and grabbars. Pt dried self and dressed self with SBA. Reminders needed to dry and dress lower body when sitting down. Pt stood with FWW at sink to complete grooming with SBA. Functional [place] Measure 0=Not Assessed/NA 4=Minimal Assistance 1=Total Assistance 5=Supervision or Setup 2=Maximal Assistance 6=Modified [place] 3=Moderate Assistance 7=Complete IndependenceIRFPAI Quality Coding Scale 6 Independent with activity with or without an assistive device 5 Patient requires set up or clean up by helper. Patient completes activity by themselves 4 Supervision or touching assist (CGA). [place] provide cues , steadying assist 3 The helper provides less than half the effort to complete the activity 2 The helper provides more than half the effort to complete the activity 1 Dependent. The helper does all the effort to complete an activity 7 Patient refused to complete or attempt activity 9 The patient did not perform the activity before the current illness or injury 88 Not attempted due to Medical conditions or safety concerns Grooming (FIM): 5 Oral Hygiene (QC): 5 Bathing (FIM): 5 Shower/Bathe Self (QC): 5 Upper Body (FIM): 5 Upper Body Dressing (QC): 4 Lower Body Dressing (FIM): 5 Lower Body Dressing (QC): 4 On/Off Footwear (QC): 4 Toileting (FIM): 5 Toileting Hygiene (QC): 4 Transfers (B, C, W/C) (FIM): 5 Toilet/Commode Transfer (FIM): 5 Toilet Transfer (QC): 4 Shower Transfer(FIM): 5 Other Treatment Pt then completed fine motor tasks working on visual spacial, crossing midline, sequencing and problem solving. Pt required cues to initiate task then perseverated on using only one color during task. Pt did not cross L of midline. Pt would turn paper or body so that it was on her R visual field. After therapy, pt sitting in recliner with call light/phone in reach. All needs met. OT Short Term Goals Short Term Goals Time Frame: Jun 09, 2016 Grooming(FIM): 5 Lower Body Dressing(FIM): 5 Toileting(FIM): 5 1=Demonstrate adherence to instructed precautions during ADL tasks. 2=Patient will verbalize/demonstrate understanding of assistive devices/ modifications for ADL. 3=Patient will improve strength/tolerance for activity to enable patient to perform ADL's. OT Account Engineer Goals Account Engineer Goals Time Frame: Jun 27, 2016 Eating (FIM): 6 Eating (QC): 6 Groomin Oral Hygiene (QC): 6 Bathing(FIM): 5 Shower/Bathe Self (QC): 5 Upper Body Dressing(FIM): 6 Upper Body Dressing (QC): 6 Lower Body Dressing(FIM): 6 Lower Body Dressing (QC): 6 On/Off Footwear (QC): 6 Toileting(FIM): 6 Toileting Hygiene (QC): 6 Transfers (B,C,W/C) (FIM): 6 Toilet/Commode Transfer(FIM): 6 Toilet/Commode Transfer (QC): 6 Shower Transfer(FIM): 5 Comprehension(FIM): 3 Expression (FIM): 5 Social Interaction(FIM): 5 Problem Solving(FIM): 3 Memory(FIM): 3 Additional Goals: 2-Verbalize Understanding, 3-ImproveStrength/Lio (and coordination) 1=Demonstrate adherence to instructed precautions during ADL tasks. 2=Patient will verbalize/demonstrate understanding of assistive devices/ modifications for ADL. 3=Patient will improve strength/tolerance for activity to enable patient to perform ADL's. OT Education/Plan Discharge Recommendations Plan/Recommendations: Continue POC Treatment Plan/Plan of Care Patient would benefit from OT for education, treatment and training to promote independence in ADL's, mobility, safety and/or upper extremity function for ADL' s. Plan of Care: ADL Retraining, Cognitive Retraining, Functional Mobility, Group Exercise/Act as Ind (educsommer, exercise, communication, activity tolerance, socialization), UE Funct Exercise/Act, UE Neuromus Re-Ed/Coord, Visual/ Perceptual Retrain Treatment Duration: Jun 27, 2016 Visits Per Week: 10-11 Minutes/Day (M-F): 75-90 Minutes/Day (Sat/Braun): PRN Agreement: Yes Rehab Potential: Guarded Time/GCodes Start Time: 10:00 Stop Time: 11:00 Total Time Billed (hr/min): 60 Billed Treatment Time 1 visit-ADL 2 (30 min) FA 2 (30 min) SABRINA ROWLAND Jun 06, 2016 11:12
[2016-06-06] MEDS: LEVOFLOXACIN 500 MG TAB (LEVAQUIN) PO SCH (11:24)
--- NOTE | 2016-06-06 11:25 | Speech Therapy Daily Note ---
Speech Daily Progress Note Subjective The patient was sitting upright in bed upon entrance. The patient greeted the clinician appropriately and agreed to participate in the speech and language session on this date. Objective Assessment of Language Related Functional Activities were initiated on this date (ELVA). Below are the results: - Telling Time: The patient demonstrated 80% accuracy with telling time on an analog clock. - Counting Money: The patient demonstrated moderate difficulty with this task, requiring moderate clinician verbal cueing and demonstrating 10% accuracy. - Addressing and Envelope: The patient demonstrate fair to good accuracy with this task. Her writing was legible, however, she was unable to record her accurate street address or zip code. - Solving Daily Math Problems: The patient demonstrated moderate difficulty with this task, requiring frequent breaks and displaying frustration throughout.The patient demonstrated 10% accuracy with moderate clinician verbal cueing. Assessment Assessment Current Status: Good Progress Treatment Plan Continue Plan of Care Communication Comprehension: 2 Expression: 3 Social Cognition Social Interaction: 4 Problem Solvin Memory: 2 Speech Short Term Goals Short Term Goals Short Term Goals 1. The patient will tolerate trials of the least restrictive consistency without signs/symptoms of aspiration. MET 06/05/2016 2. The patient will demonstrate laryngeal, pharyngeal and base of tongue exercises with 80% accuracy, independently. PROGRESSING 3. The patient will demonstrate swallowing strategies with 90% accuracy, independently. PROGRESSING 4. The patient will state orientation information with 80% accuracy and moderate clinician verbal cueing. PROGRESSING 5. The patient will respond to simple yes/no questions with 80% accuracy and moderate clinician verbal cueing. MET 06/05/2016 6. The patient will follow simple, one-step commands with 80% accuracy and direct modeling. MET 06/05/2016 7. Patient will state the name of common items with 80% accuracy and mild clinician cueing. MET 06/05/2016 Time Frame-STG: Three Weeks Speech Reel Man Goals Reel Man Goals 1. The patient will tolerate the least restrictive diet without signs/symptoms of aspiration or laryngeal penetration. 2. The patient will demonstrate improved receptive language for increased function and safety with ADL's in the least restrictive environment. Time Frame: Four Weeks Comprehension: 3 Expression: 5 Social Interaction: 5 Problem Solvin Memory: 3 Speech-Plan Treatment Plan Speech Therapy Treatment Plan: Continue Plan of Care Continue skilled speech therapy to target receptive communication and improved safety and function with ADL's. Treatment Duration: Jul 01, 2016 # of days/week Five. Visits Per Week: Ten. Minutes/Day (M-F): 60 Rehab Potential: Guarded Safety Risks/Education Teaching Recipient: Patient Teaching Methods: Demonstration Response to Teaching: Verbalize Understanding, Return Demonstration, Reinforcement Needed Education Topics Provided: Circumlocation Strategies Time Speech Therapy Time In: 08:00 Speech Therapy Time Out: 09:00 Total Billed Time: 60 Billed Treatment Time 1BALDO ELIZABETH ST Jun 06, 2016 11:25
--- NOTE | 2016-06-06 15:36 | Therapy Group Daily Note ---
Therapy Daily Group Note Patient Education Topic Other List Below (ARU Description) Exercises LE Seated Exercise, UE Exercise Other/Notes Pt participated in PT/OT Group in Therapy [facility] area. Pt ambulated to Group using FWW. Group consisted of Intro. (Name, [place]/Where You Live, Favorite Childhood Memory), Socialization, UE/LE Ex, Memory Recall for Peer Memories shared and Name that Tune Recall. Pt gives inconsistent responses that are not always social appropriate. Pt demonstrates some cognitive deficits. PT assists pt in returning to room. Pt is left with all needs met at end of tx. Start Time: 13:00 Stop Time: 14:00 Total Billed Treatment Time: 60 Total Billed Treatment 1,GRP RUBI [place] ALDERMAN Jun 06, 2016 15:36
[2016-06-06] MEDS: ALPRAZolam 0.25 MG (XANAX) TAB PO PRN (15:56)
[2016-06-06 18:16] VITALS: BP 95/57
[2016-06-06] MEDS: ATORVASTATIN 80 MG (LIPITOR) TABLET PO SCH (21:33)
[2016-06-07 06:00] VITALS: BP 129/71
[2016-06-07] MEDS: GLIMEPIRIDE 2 MG (AMARYL) TAB PO SCH ×2 (06:29→17:14)
[2016-06-07] MEDS: lisINopril 5 MG (PRINIVIL) TABLET PO SCH (10:00)
[2016-06-07] MEDS: ASPIRIN E.C. 325 MG (ECOTRIN) TABLET PO SCH (10:00)
[2016-06-07] MEDS: NICOTINE 14 MG (NICODERM) PATCH TD SCH (10:01)
[2016-06-07] MEDS: CLOPIDOGREL 75 MG (PLAVIX) TABLET PO SCH (10:01)
[2016-06-07] MEDS: LEVOFLOXACIN 500 MG TAB (LEVAQUIN) PO SCH (10:01)
[2016-06-07] MEDS: PROPRANOLOL 20 MG (INDERAL) TABLET PO SCH (10:01)
[2016-06-07] MEDS: NICOTINE PATCH REMOVAL TP SCH (10:01)
--- NOTE | 2016-06-07 11:25 | Occupational Ther Daily Note ---
OT Current Status-Daily Note Subjective "OK but I need to wake up first and get these tremors to settle down." Appearance Patient reclined in bed upon OT arrival. Agreed to therapy this am. Mental Status/Objective Patient Orientation: Person, Place, Situation Functional [place] Measure 0=Not Assessed/NA 4=Minimal Assistance 1=Total Assistance 5=Supervision or Setup 2=Maximal Assistance 6=Modified [place] 3=Moderate Assistance 7=Complete [place] ADL-Treatment Agreeable to sponge bath this am. Sat on edge of bed to bath and to dress self. Independently bathed using bath sponges. Had difficulty hooking bra and needed assist due to tremor. Donned blouse independently. Stood, using the walker to doff PJ bottoms and then do dianna area. Donned jeans independently. Combed hair. Ambulated to the bathroom to toilet. Sequenced all ADL appropriately. Stood at the sink and washed hands after toileting. Ambulated back to bedroom seated self in chair. Tremors are very frustrating for her and interferes with activities and her fine motor skills. Alarm set and patient given call light and instructed to call the nurse for assistance. Agreed to do so. Functional [place] Measure 0=Not Assessed/NA 4=Minimal Assistance 1=Total Assistance 5=Supervision or Setup 2=Maximal Assistance 6=Modified [place] 3=Moderate Assistance 7=Complete IndependenceIRFPAI Quality Coding Scale 6 Independent with activity with or without an assistive device 5 Patient requires set up or clean up by helper. Patient completes activity by themselves 4 Supervision or touching assist (CGA). [place] provide cues , steadying assist 3 The helper provides less than half the effort to complete the activity 2 The helper provides more than half the effort to complete the activity 1 Dependent. The helper does all the effort to complete an activity 7 Patient refused to complete or attempt activity 9 The patient did not perform the activity before the current illness or injury 88 Not attempted due to Medical conditions or safety concerns OT Short Term Goals Short Term Goals Time Frame: Jun 09, 2016 Grooming(FIM): 5 Lower Body Dressing(FIM): 5 Toileting(FIM): 5 1=Demonstrate adherence to instructed precautions during ADL tasks. 2=Patient will verbalize/demonstrate understanding of assistive devices/ modifications for ADL. 3=Patient will improve strength/tolerance for activity to enable patient to perform ADL's. OT Residential Goals Residential Goals Time Frame: Jun 27, 2016 Eating (FIM): 6 Eating (QC): 6 Groomin Oral Hygiene (QC): 6 Bathing(FIM): 5 Shower/Bathe Self (QC): 5 Upper Body Dressing(FIM): 6 Upper Body Dressing (QC): 6 Lower Body Dressing(FIM): 6 Lower Body Dressing (QC): 6 On/Off Footwear (QC): 6 Toileting(FIM): 6 Toileting Hygiene (QC): 6 Transfers (B,C,W/C) (FIM): 6 Toilet/Commode Transfer(FIM): 6 Toilet/Commode Transfer (QC): 6 Shower Transfer(FIM): 5 Comprehension(FIM): 3 Expression (FIM): 5 Social Interaction(FIM): 5 Problem Solving(FIM): 3 Memory(FIM): 3 Additional Goals: 2-Verbalize Understanding, 3-ImproveStrength/Lio (and coordination) 1=Demonstrate adherence to instructed precautions during ADL tasks. 2=Patient will verbalize/demonstrate understanding of assistive devices/ modifications for ADL. 3=Patient will improve strength/tolerance for activity to enable patient to perform ADL's. OT Education/Plan Discharge Recommendations Plan/Recommendations: Continue POC Treatment Plan/Plan of Care Patient would benefit from OT for education, treatment and training to promote independence in ADL's, mobility, safety and/or upper extremity function for ADL' s. Plan of Care: ADL Retraining, Cognitive Retraining, Functional Mobility, Group Exercise/Act as Ind (educaiton, exercise, communication, activity tolerance, socialization), UE Funct Exercise/Act, UE Neuromus Re-Ed/Coord, Visual/ Perceptual Retrain Treatment Duration: Jun 27, 2016 Visits Per Week: 10-11 Minutes/Day (M-F): 75-90 Minutes/Day (Sat/Braun): PRN Agreement: Yes Rehab Potential: Guarded Time/GCodes Start Time: 08:25 Stop Time: 09:05 Total Time Billed (hr/min): 40 Billed Treatment Time Visit, ADL X 4 G Codes Necessary: No JUAQUIN MAY OT Jun 07, 2016 11:25
--- NOTE | 2016-06-07 12:02 | Physical Therapy Daily Note ---
PT Daily Note-Current Subjective Pt sitting in recliner visiting with family upon arrival. Pt reluctantly agrees to PT. Mental Status Patient Orientation: Person, Confused Transfers Functional [place] Measure 0=Not Assessed/NA 4=Minimal Assistance 1=Total Assistance 5=Supervision or Setup 2=Maximal Assistance 6=Modified [place] 3=Moderate Assistance 7=Complete IndependenceIRFPAI Quality Coding Scale 6 Independent with activity with or without an assistive device 5 Patient requires set up or clean up by helper. Patient completes activity by themselves 4 Supervision or touching assist (CGA). [place] provide cues , steadying assist 3 The helper provides less than half the effort to complete the activity 2 The helper provides more than half the effort to complete the activity 1 Dependent. The helper does all the effort to complete an activity 7 Patient refused to complete or attempt activity 9 The patient did not perform the activity before the current illness or injury 88 Not attempted due to Medical conditions or safety concerns Transfers (B, C, W/C) (FIM): 5 Scootin Sit to/from Stand: 5 Sit to Stand (QC): 5 Weight Bearing Weight Bearing Restriction: Full Weight Bearing Location Restriction: LE Bilateral Gait Training Does the Patient Walk?: Yes Distance (FIM): 3=150 ft Distance: 300' Walk 10 feet (QC): 5 Walk 50 ft with 2 Turns(QC): 5 Walk 150 ft (QC): 4 Gait Level of Assist: 4 Gait Persons Needed: 1 Gait Assistive Device: FWW Pt walks with normalized gait but is impulsive and has occasional LOB that pt is able to self correct. Pt fatigues easy and needs rest. Wheelchair Training Does the Pt Use a Wheelchair?: No Treatments Pt transfers using FWW at [facility]. Pt ambulates using FWW at [facility] due to impulsive behavior while walking. Pt returns to room at end of ambulation to rest in recliner with all needs met at end of tx. Assessment Current Status: Fair Progress Pt still has cognitive awareness issues as well as impulsivity during tx. PT Short Term Goals Short Term Goals Time Frame: Jun 09, 2016 Gait (FIM): 4 Gait Distance Comment: 200' Gait Level of Assist: 4 (CGA) Gait Assistive Device: FWW PT Shipwright Supervisor Goals Shipwright Supervisor Goals PT Senior Living Goals Time Frame: Jun 23, 2016 Transfers (B,C,W/C) (FIM): 5 Sit to Lying (QC): 6 Lying-Sitting on Side/Bed(QC): 6 Sit to Stand (QC): 4 Rollin Roll Left to Right (QC): 6 Car Transfer (QC): 4 Does the Patient Walk: Yes Gait (FIM): 5 Distance: 300' Walk 10 feet (QC): 4 Walk 10ft-Uneven Surface(QC): 4 Walk 50ft with 2 Turns (QC): 4 Walk 150 ft (QC): 4 Gait Level of Assist: 5 Gait Assistive Device: FWW Stairs (FIM): 2 # of Steps: 8 1 Step (curb) (QC): 4 4 Steps (QC): 4 12 Steps (QC): 88 Stairs Level Of Assist: 4 (CGA) Picking up an Object (QC): 88 PT Plan Problem List Problem List: Activity Tolerance, Functional Strength, Safety, Balance, Gait, Transfer Treatment/Plan Treatment Plan: Continue Plan of Care Treatment Plan: Bed Mobility, Education, Functional Activity Lio, Functional Strength, Group Therapy, Gait, Safety, Therapeutic Exercise, Transfers Treatment Duration: Jun 23, 2016 Visits Per Week: 10-11 Minutes/Day (M-F): 60-90 Minutes/Day (Sat/Braun): 15-30 Safety Risks/Education Patient Education: Gait Training, Transfer Techniques, Correct Positioning, Safety Issues Teaching Recipient: Patient Teaching Methods: Discussion Response to Teaching: Reinforcement Needed Time/GCodes Time In: 1110 Time Out: 1125 Total Billed Treatment Time: 15 Total Billed Treatment visit, GT (15m) RUBI KEATING PTA Jun 07, 2016 12:02
[2016-06-07 18:30] VITALS: BP 102/55
[2016-06-07] MEDS: ATORVASTATIN 80 MG (LIPITOR) TABLET PO SCH (21:01)
[2016-06-08 05:24] VITALS: BP 110/64
[2016-06-08] MEDS: GLIMEPIRIDE 2 MG (AMARYL) TAB PO SCH ×2 (06:15→16:35)
[2016-06-08] MEDS: PROPRANOLOL 20 MG (INDERAL) TABLET PO SCH (09:54)
[2016-06-08] MEDS: ASPIRIN E.C. 325 MG (ECOTRIN) TABLET PO SCH (09:54)
[2016-06-08] MEDS: CLOPIDOGREL 75 MG (PLAVIX) TABLET PO SCH (09:54)
[2016-06-08] MEDS: NICOTINE PATCH REMOVAL TP SCH (09:54)
[2016-06-08] MEDS: NICOTINE 14 MG (NICODERM) PATCH TD SCH (09:54)
[2016-06-08] MEDS: lisINopril 5 MG (PRINIVIL) TABLET PO SCH (09:54)
[2016-06-08] MEDS: LEVOFLOXACIN 500 MG TAB (LEVAQUIN) PO SCH (10:01)
[2016-06-08] MEDS: ALPRAZolam 0.25 MG (XANAX) TAB PO PRN (11:58)
[2016-06-08 18:00] VITALS: BP 119/67
[2016-06-08] MEDS: ATORVASTATIN 80 MG (LIPITOR) TABLET PO SCH (20:46)
[2016-06-09 05:49] VITALS: BP 126/77
[2016-06-09] MEDS: GLIMEPIRIDE 2 MG (AMARYL) TAB PO SCH ×2 (06:06→17:19)
[2016-06-09] MEDS: ASPIRIN E.C. 325 MG (ECOTRIN) TABLET PO SCH (08:18)
[2016-06-09] MEDS: PROPRANOLOL 20 MG (INDERAL) TABLET PO SCH (08:18)
[2016-06-09] MEDS: NICOTINE 14 MG (NICODERM) PATCH TD SCH (08:18)
[2016-06-09] MEDS: CLOPIDOGREL 75 MG (PLAVIX) TABLET PO SCH (08:18)
[2016-06-09] MEDS: lisINopril 5 MG (PRINIVIL) TABLET PO SCH (08:18)
[2016-06-09] MEDS: NICOTINE PATCH REMOVAL TP SCH (08:18)
--- NOTE | 2016-06-09 08:41 | Progress Note (SOAP) ---
Subjective Subjective/Events-last exam stroke. Patient speaking better. Patient feels anxious inside. Objective Exam Vital Signs Date Time Temp Pulse Resp B/P Pulse Ox O2 Delivery O2 Flow Rate FiO2 06/09/16 05:49 97.5 58 18 126/77 95 Room Air 06/08/16 21:27 Room Air 06/08/16 18:00 99.0 61 20 119/67 96 Room Air 06/08/16 09:00 Room Air I & O 06/09/16 07:00 Intake Total 1200 ml Balance 1200 ml Capillary Refill : General Appearance: No Apparent Distress HEENT: Normal ENT Inspection Neck: Normal Inspection Respiratory: Chest Non Tender Lungs Clear No Accessory Muscle Use No Respiratory Distress Cardiovascular: Regular Rate, Rhythm No Murmur Results Lab Laboratory Tests 06/08/16 12:00: Glucometer 145H 06/08/16 20:34: Glucometer 168H 06/09/16 05:52: Glucometer 106 Microbiology 06/03/16 Urine Culture - Final, Complete Enterococcus Faecalis Probable Actinomyces Assessment/Plan Assessment/Plan Assess & Plan/Chief Complaint CVA. Confusion. History of pneumonia. Hypertension. Multiple lung nodules. Diabetes. . CVA. Confusion is less. History of pneumonia. Hypertension. Multiple lung nodules. Patient improving since seen yesterday. . 06/05. CVA. Confusion much better. History of pneumonia. Diabetes. Patient communicating better. Patient doesn't know her address where she lives. But she can write if. . 06/06/16. CVA. Patient still does not know her address at home. History of pneumonia. Diabetes. . 06/09/16. Stroke. Patient speaking better. Patient has improved area Patient can now verbalize home address Clinical Quality Measures DVT/VTE Risk/Contraindication: Risk Factor Score Per Nursin RFS Level Per Nursing on Admit: 4+=Very High LALO HERRERA DO Jun 09, 2016 08:40
[2016-06-09] MEDS ORDERED: ALPRAZolam 0.25 MG (XANAX) TAB PO SCH (09:05)
--- NOTE | 2016-06-09 10:09 | Physical Therapy Daily Note ---
PT Daily Note-Current Subjective Pt sitting up in bed upon arrival. Pt agrees to PT. Pain Numeric Pain Scale: 3 Location: Right, Dorsal Location Body Site: Thigh Pain Description: Ache, Tightness Mental Status Patient Orientation: Person, Place, Situation Transfers Functional [place] Measure 0=Not Assessed/NA 4=Minimal Assistance 1=Total Assistance 5=Supervision or Setup 2=Maximal Assistance 6=Modified [place] 3=Moderate Assistance 7=Complete IndependenceIRFPAI Quality Coding Scale 6 Independent with activity with or without an assistive device 5 Patient requires set up or clean up by helper. Patient completes activity by themselves 4 Supervision or touching assist (CGA). [place] provide cues , steadying assist 3 The helper provides less than half the effort to complete the activity 2 The helper provides more than half the effort to complete the activity 1 Dependent. The helper does all the effort to complete an activity 7 Patient refused to complete or attempt activity 9 The patient did not perform the activity before the current illness or injury 88 Not attempted due to Medical conditions or safety concerns Transfers (B, C, W/C) (FIM): 5 Scootin Sit to/from Stand: 5 Sit to Stand (QC): 5 Weight Bearing Weight Bearing Restriction: Full Weight Bearing Location Restriction: LE Bilateral Gait Training Does the Patient Walk?: Yes Gait (FIM): 5 Distance (FIM): 3=150 ft Distance: 150' Walk 10 feet (QC): 5 Walk 50 ft with 2 Turns(QC): 5 Walk 150 ft (QC): 5 Gait Level of Assist: 5 Gait Persons Needed: 1 Gait Assistive Device: FWW Pt walks with slow but steady [place], no LOB. Wheelchair Training Does the Pt Use a Wheelchair?: No Exercises Seated Therapy Exercises: Ankle pumps, Long arc quads, Hip flexion, Kicking activity, Hip abd/add Seated Reps: 20 NuStep Minutes: 15 NuStep Workload: 4 Treatments Pt transfers at SBA using FWW. Pt ambulates using FWW at SBA. Pt uses NuStep for strengthening and improving activity tolerance. Pt also completes Seated Ex before end of tx. OT is present in Therapy Gym at end of tx so OT takes over after EX to start OT tx. Assessment Current Status: Good Progress Pt appears more cognitive aware this morning and able to follow directions better. PT Short Term Goals Short Term Goals Time Frame: Jun 09, 2016 Gait (FIM): 4 Gait Distance Comment: 200' Gait Level of Assist: 4 (CGA) Gait Assistive Device: FWW PT Retirement Goals Glass Blowing Instructor Goals PT Glass Blowing Instructor Goals Time Frame: Jun 23, 2016 Transfers (B,C,W/C) (FIM): 5 Sit to Lying (QC): 6 Lying-Sitting on Side/Bed(QC): 6 Sit to Stand (QC): 4 Rollin Roll Left to Right (QC): 6 Car Transfer (QC): 4 Does the Patient Walk: Yes Gait (FIM): 5 Distance: 300' Walk 10 feet (QC): 4 Walk 10ft-Uneven Surface(QC): 4 Walk 50ft with 2 Turns (QC): 4 Walk 150 ft (QC): 4 Gait Level of Assist: 5 Gait Assistive Device: FWW Stairs (FIM): 2 # of Steps: 8 1 Step (curb) (QC): 4 4 Steps (QC): 4 12 Steps (QC): 88 Stairs Level Of Assist: 4 (CGA) Picking up an Object (QC): 88 PT Plan Problem List Problem List: Activity Tolerance, Functional Strength, Safety, Balance, Gait Treatment/Plan Treatment Plan: Continue Plan of Care Treatment Plan: Bed Mobility, Education, Functional Activity Lio, Functional Strength, Group Therapy, Gait, Safety, Therapeutic Exercise, Transfers Treatment Duration: Jun 23, 2016 Visits Per Week: 10-11 Minutes/Day (M-F): 60-90 Minutes/Day (Sat/Braun): 15-30 Safety Risks/Education Patient Education: Gait Training, Transfer Techniques, Correct Positioning, Safety Issues Teaching Recipient: Patient Teaching Methods: Discussion Response to Teaching: Verbalize Understanding Time/GCodes Time In: 900 Time Out: 945 Total Billed Treatment Time: 45 Total Billed Treatment visit, EX X2 (30m) & GT (15m) RUBI KEATING PTA Jun 09, 2016 10:09
--- NOTE | 2016-06-09 11:09 | Occupational Ther Daily Note ---
OT Current Status-Daily Note Subjective Pt finishing up with PT. OT took over care of pt in therapy gym. Pt agreed to therapy. No c/o pain. Mental Status/Objective Patient Orientation: Person, Place, Situation Functional [place] Measure 0=Not Assessed/NA 4=Minimal Assistance 1=Total Assistance 5=Supervision or Setup 2=Maximal Assistance 6=Modified [place] 3=Moderate Assistance 7=Complete [place] ADL-Treatment Functional [place] Measure 0=Not Assessed/NA 4=Minimal Assistance 1=Total Assistance 5=Supervision or Setup 2=Maximal Assistance 6=Modified [place] 3=Moderate Assistance 7=Complete IndependenceIRFPAI Quality Coding Scale 6 Independent with activity with or without an assistive device 5 Patient requires set up or clean up by helper. Patient completes activity by themselves 4 Supervision or touching assist (CGA). [place] provide cues , steadying assist 3 The helper provides less than half the effort to complete the activity 2 The helper provides more than half the effort to complete the activity 1 Dependent. The helper does all the effort to complete an activity 7 Patient refused to complete or attempt activity 9 The patient did not perform the activity before the current illness or injury 88 Not attempted due to Medical conditions or safety concerns Other Treatment Pt working on sequencing and problem solving to find areas in hospital. Pt required 3 reminders of what task was then was able to retain directions. REED/ L directed pt to remember steps in task and use environmental signs to guide pt to destination. Pt was able to complete with encouragement. Pt required recovery break skilled nursing through task, increased tremors and pt stated heart was racing though pulse was regular. Then sitting at table in [facility], pt completed activity that worked on fine motor strengthening, attention/focus, dexterity and coordination. Pt demonstrated good focus and fine motor skills. Pt stated that eyes were tired and she was a ready to go back to room. Close SBA for ambulation using FWW. Pt transferred onto/off of toilet with mod I and completed toileting mod I. No LOB noted. Pt transferred into bed, mod I for bed mobility. After therapy, pt lying in bed with call light/phone in reach. All needs met in room. OT Short Term Goals Short Term Goals Time Frame: Jun 09, 2016 Grooming(FIM): 5 Lower Body Dressing(FIM): 5 Toileting(FIM): 5 1=Demonstrate adherence to instructed precautions during ADL tasks. 2=Patient will verbalize/demonstrate understanding of assistive devices/ modifications for ADL. 3=Patient will improve strength/tolerance for activity to enable patient to perform ADL's. OT Alf Goals Alf Goals Time Frame: Jun 27, 2016 Eating (FIM): 6 Eating (QC): 6 Groomin Oral Hygiene (QC): 6 Bathing(FIM): 5 Shower/Bathe Self (QC): 5 Upper Body Dressing(FIM): 6 Upper Body Dressing (QC): 6 Lower Body Dressing(FIM): 6 Lower Body Dressing (QC): 6 On/Off Footwear (QC): 6 Toileting(FIM): 6 Toileting Hygiene (QC): 6 Transfers (B,C,W/C) (FIM): 6 Toilet/Commode Transfer(FIM): 6 Toilet/Commode Transfer (QC): 6 Shower Transfer(FIM): 5 Comprehension(FIM): 3 Expression (FIM): 5 Social Interaction(FIM): 5 Problem Solving(FIM): 3 Memory(FIM): 3 Additional Goals: 2-Verbalize Understanding, 3-ImproveStrength/Lio (and coordination) 1=Demonstrate adherence to instructed precautions during ADL tasks. 2=Patient will verbalize/demonstrate understanding of assistive devices/ modifications for ADL. 3=Patient will improve strength/tolerance for activity to enable patient to perform ADL's. OT Education/Plan Discharge Recommendations Plan/Recommendations: Continue POC Treatment Plan/Plan of Care Patient would benefit from OT for education, treatment and training to promote independence in ADL's, mobility, safety and/or upper extremity function for ADL' s. Plan of Care: ADL Retraining, Cognitive Retraining, Functional Mobility, Group Exercise/Act as Ind (educaiton, exercise, communication, activity tolerance, socialization), UE Funct Exercise/Act, UE Neuromus Re-Ed/Coord, Visual/ Perceptual Retrain Treatment Duration: Jun 27, 2016 Visits Per Week: 10-11 Minutes/Day (M-F): 75-90 Minutes/Day (Sat/Braun): PRN Agreement: Yes Rehab Potential: Guarded Time/GCodes Start Time: 09:45 Stop Time: 10:45 Total Time Billed (hr/min): 60 Billed Treatment Time 1 visit-FA 3 (40 min) MARGA 1 (20 min) SABRINA ROWLAND Jun 09, 2016 11:09
[2016-06-09] MEDS: LEVOFLOXACIN 500 MG TAB (LEVAQUIN) PO SCH (11:16)
[2016-06-09] MEDS: ALPRAZolam 0.25 MG (XANAX) TAB PO SCH ×2 (11:16→20:06)
--- NOTE | 2016-06-09 11:49 | Speech Therapy Daily Note ---
Speech Daily Progress Note Subjective The patient was seated upright in bed upon entrance. The patient greeted the clinician appropriately and agreed to participate in the speech and language treatment session on this date. To note, the patient demonstrated improved functional language through informal conversation. Objective Orientation: The patient independently stated the month and year for the clinician. Yes/No Questions: Yes/No questions were provided to the patient verbally. The patient demonstrated excellent progress and accuracy with this task (large improvement from previous session), as she displayed 90% accuracy on this date ( 0% accuracy on this task one week ago). Word-Finding: The patient was provided a specific category and letter by the clinician. The patient was asked to provide a specific word that was initiated with the provided letter and "fit into" the category. The patient demonstrated good accuracy on this task (90%) with mild clinician verbal cueing. Dysphagia Exercises: The patient demonstrated improved accuracy with dysphagia exercises, displaying 80% accuracy with minimal clinician verbal cueing and direct modeling. Assessment Assessment Current Status: Good Progress Treatment Plan Continue Plan of Care Communication Comprehension: 3 Expression: 4 Social Cognition Social Interaction: 5 Problem Solvin Memory: 3 Speech Short Term Goals Short Term Goals Short Term Goals 1. The patient will tolerate trials of the least restrictive consistency without signs/symptoms of aspiration. MET 06/05/2016 2. The patient will demonstrate laryngeal, pharyngeal and base of tongue exercises with 80% accuracy, independently. PROGRESSING 3. The patient will demonstrate swallowing strategies with 90% accuracy, independently. PROGRESSING 4. The patient will state orientation information with 80% accuracy and moderate clinician verbal cueing. PROGRESSING 5. The patient will respond to simple yes/no questions with 80% accuracy and moderate clinician verbal cueing. MET 06/05/2016 6. The patient will follow simple, one-step commands with 80% accuracy and direct modeling. MET 06/05/2016 7. Patient will state the name of common items with 80% accuracy and mild clinician cueing. MET 06/05/2016 Time Frame-STG: Three Weeks Speech Group Home Goals Administrative Services Director Goals 1. The patient will tolerate the least restrictive diet without signs/symptoms of aspiration or laryngeal penetration. 2. The patient will demonstrate improved receptive language for increased function and safety with ADL's in the least restrictive environment. Time Frame: Four Weeks Comprehension: 3 Expression: 5 Social Interaction: 5 Problem Solvin Memory: 3 Speech-Plan Treatment Plan Speech Therapy Treatment Plan: Continue Plan of Care Continue skilled speech therapy to target auditory comprehension, dysphagia, and word-finding. Treatment Duration: Jul 01, 2016 # of days/week Five. Visits Per Week: Ten. Minutes/Day (M-F): 60 Rehab Potential: Guarded Safety Risks/Education Teaching Recipient: Patient Teaching Methods: Demonstration, Handout, Discussion Response to Teaching: Return Demonstration, Reinforcement Needed Education Topics Provided: Dysphagia Exercises Time Speech Therapy Time In: 08:00 Speech Therapy Time Out: 09:00 Total Billed Time: 60 Billed Treatment Time 1BALDO 1, [facility] LA [facility]Z [facility] 11[facility]
--- NOTE | 2016-06-09 14:59 | Physical Therapy Daily Note ---
PT Daily Note-Current Subjective Pt is sidelying in bed upon arrival. Pt agrees to PT. Mental Status Patient Orientation: Person, Place, Situation Transfers Functional [place] Measure 0=Not Assessed/NA 4=Minimal Assistance 1=Total Assistance 5=Supervision or Setup 2=Maximal Assistance 6=Modified [place] 3=Moderate Assistance 7=Complete IndependenceIRFPAI Quality Coding Scale 6 Independent with activity with or without an assistive device 5 Patient requires set up or clean up by helper. Patient completes activity by themselves 4 Supervision or touching assist (CGA). [place] provide cues , steadying assist 3 The helper provides less than half the effort to complete the activity 2 The helper provides more than half the effort to complete the activity 1 Dependent. The helper does all the effort to complete an activity 7 Patient refused to complete or attempt activity 9 The patient did not perform the activity before the current illness or injury 88 Not attempted due to Medical conditions or safety concerns Transfers (B, C, W/C) (FIM): 5 Scootin Rollin Roll Left to Right (QC): 6 Supine to/from Sit: 6 Sit to/from Stand: 5 Sit to Lying (QC): 6 Sit to Stand (QC): 5 Weight Bearing Weight Bearing Restriction: Full Weight Bearing Location Restriction: LE Bilateral Gait Training Does the Patient Walk?: Yes Gait (FIM): 5 Distance (FIM): 3=150 ft Distance: 150' Walk 10 feet (QC): 5 Walk 50 ft with 2 Turns(QC): 5 Walk 150 ft (QC): 5 Gait Level of Assist: 5 Gait Persons Needed: 1 Gait Assistive Device: FWW Pt walks with normalized gait pattern. Pt fatigues easy though. Wheelchair Training Does the Pt Use a Wheelchair?: No Stair Training Stair Training: Handrails/: 2 handrails Stairs (FIM): 5 #of Steps: 12 1 Step (curb) (QC): 5 4 Steps (QC): 5 12 Steps (QC): 5 Stairs: Pattern: Reciprocal Level of Assist: 5 Exercises Seated Therapy Exercises: Ankle pumps, Long arc quads, Hip flexion, Kicking activity Seated Reps: 20 Treatments Pt's bed mobility and transfers are Mod I except for sit to stand that is SBA. Pt ambulates using FWW at SBA. Pt completes 12 stairs and Seated Ex in chair for strengthening and improvements in balance. Pt returns to room and rests supine in bed with all needs met at end of tx. Assessment Current Status: Good Progress Pt is improving with independence of bed mobility and transfers as well as ambulation. PT Short Term Goals Short Term Goals Time Frame: Jun 09, 2016 Gait (FIM): 4 Gait Distance Comment: 200' Gait Level of Assist: 4 (CGA) Gait Assistive Device: FWW PT Audio Visual Tech Goals Group Home Goals PT Audio Visual Tech Goals Time Frame: Jun 23, 2016 Transfers (B,C,W/C) (FIM): 5 Sit to Lying (QC): 6 Lying-Sitting on Side/Bed(QC): 6 Sit to Stand (QC): 4 Rollin Roll Left to Right (QC): 6 Car Transfer (QC): 4 Does the Patient Walk: Yes Gait (FIM): 5 Distance: 300' Walk 10 feet (QC): 4 Walk 10ft-Uneven Surface(QC): 4 Walk 50ft with 2 Turns (QC): 4 Walk 150 ft (QC): 4 Gait Level of Assist: 5 Gait Assistive Device: FWW Stairs (FIM): 2 # of Steps: 8 1 Step (curb) (QC): 4 4 Steps (QC): 4 12 Steps (QC): 88 Stairs Level Of Assist: 4 (CGA) Picking up an Object (QC): 88 PT Plan Problem List Problem List: Activity Tolerance, Functional Strength, Safety, Balance, Gait Treatment/Plan Treatment Plan: Continue Plan of Care Treatment Plan: Bed Mobility, Education, Functional Activity Lio, Functional Strength, Group Therapy, Gait, Safety, Therapeutic Exercise, Transfers Treatment Duration: Jun 23, 2016 Visits Per Week: 10-11 Minutes/Day (M-F): 60-90 Minutes/Day (Sat/Braun): 15-30 Safety Risks/Education Patient Education: Gait Training, Transfer Techniques, Steps, Correct Positioning, Safety Issues Teaching Recipient: Patient Teaching Methods: Discussion Response to Teaching: Verbalize Understanding Time/GCodes Time In: 1400 Time Out: 1430 Total Billed Treatment Time: 30 Total Billed Treatment visit, GT (15m) & EX (15m) RUBI KEATING PTA Jun 09, 2016 14:59
--- NOTE | 2016-06-09 17:53 | PM & R (SOAP) Progress Note ---
Subjective Subjective/Events-last exam Patient was seen in her room this afternoon Patient Min assist for transfers Sppech improving Objective Exam Last Set of Vital Signs Vital Signs Date Time Temp Pulse Resp B/P Pulse Ox O2 Delivery O2 Flow Rate FiO2 06/09/16 09:00 Room Air 06/09/16 05:49 97.5 58 18 126/77 95 Capillary Refill : I&O Intake and Output 06/09/16 00:00 Intake Total 1310 ml Balance 1310 ml Intake Oral 1310 ml # Voids 6 # Bowel Movements 1 General: Alert, Cooperative, No Acute Distress HEENT: Atraumatic, PERRLA, EOMI, Mucous Memb Moist/Mucarabones, Other (Aphasia and Dysphagia) Neck: Supple, No JVD, Other (left CEA site healing well no drainage) Lungs: Clear to Auscultation Heart: Regular Rate Abdomen: Normal Bowel Sounds, Soft, No Tenderness Extremities: No Edema Neuro: Other (Mild rt sided weakness and dyscoordination as well as aphasia and dysphagia) Results Lab Laboratory Tests 06/06/16 20:54: Glucometer 133H 06/07/16 06:26: Glucometer 109 06/07/16 11:48: Glucometer 154H 06/07/16 16:10: Glucometer 178H 06/07/16 21:06: Glucometer 202H 06/08/16 04:53: Glucometer 132H 06/08/16 12:00: Glucometer 145H 06/08/16 20:34: Glucometer 168H 06/09/16 05:52: Glucometer 106 06/09/16 11:06: Glucometer 121H 06/09/16 16:26: Glucometer 139H Microbiology 06/03/16 Urine Culture - Final, Complete Enterococcus Faecalis Probable Actinomyces Assessment/Plan Assessment Left cva with Rt HP mild and aphasia and dysphagia UTI on antibioitc HTN controlled / S/P Left CEA foe coritid Artery D DM controlled Tremors -appears improved with low-dose B Rose Smoking cessation-Nicoderm patch Plan Continue PT/OT/ST Diet advanced as per ST re UTI-under treaTMENT aPPRECXIATE dr Arias NOTE AND ORDERS F/U re tremors-trial of low dose Beta rose -appears improved, Overall patient progressing well with speech improving daily. Next Team Conference 06/11/16 INGE MILLER MD Jun 09, 2016 17:53
[2016-06-09 18:21] VITALS: BP 107/64
[2016-06-09 19:19] LABS: BILIRUBIN,URINE NEGATIVE (NEGATIVE); KETONES,URINE NEGATIVE (NEGATIVE); LEUKOCYTE ESTERASE ,URINE 2+ (NEGATIVE); NITRITE,URINE NEGATIVE (NEGATIVE); PH,URINE 5 (5-9); PROTEIN,URINE NEGATIVE (NEGATIVE); UROBILINOGEN,URINE NORMAL (NORMAL)
[2016-06-09] MEDS: ATORVASTATIN 80 MG (LIPITOR) TABLET PO SCH (20:06)
[2016-06-10 06:00] VITALS: BP 103/63
[2016-06-10] MEDS: GLIMEPIRIDE 2 MG (AMARYL) TAB PO SCH ×2 (06:56→16:09)
--- NOTE | 2016-06-10 07:49 | Progress Note (SOAP) ---
Subjective Subjective/Events-last exam stroke. infection resolved. Speech improved. Patient thought process is improving Objective Exam Vital Signs Date Time Temp Pulse Resp B/P Pulse Ox O2 Delivery O2 Flow Rate FiO2 06/10/16 06:00 99.5 62 20 103/63 97 Room Air 06/09/16 21:00 Room Air 06/09/16 18:21 97.1 63 16 107/64 96 06/09/16 09:00 Room Air I & O 06/10/16 07:00 Intake Total 900 ml Balance 900 ml Capillary Refill : General Appearance: No Apparent Distress WD/WN HEENT: Normal ENT Inspection Neck: Normal Inspection Respiratory: Chest Non Tender Lungs Clear Normal Breath Sounds No Accessory Muscle Use No Respiratory Distress Cardiovascular: Regular Rate, Rhythm No Murmur Results Lab Laboratory Tests 06/09/16 11:06: Glucometer 121H 06/09/16 16:26: Glucometer 139H 06/09/16 17:29: Urine Bacteria NONE, Urine Bilirubin NEGATIVE, Urine Casts NONE, Urine Clarity CLEAR, Urine Color YELLOW, Urine Crystals NONE, Urine Culture Indicated NO, Urine Glucose (UA) NEGATIVE, Urine Ketones NEGATIVE, Urine Leukocyte Esterase 2+ H, Urine Mucus SMALLH, Urine Nitrite NEGATIVE, Urine Protein NEGATIVE, Urine RBC NONE, Urine RBC (Auto) NEGATIVE, Urine Specific [place] 1.025H, Urine Squamous Epithelial Cells 5-10, Urine Urobilinogen NORMAL, Urine WBC 2-5, Urine pH 5 06/09/16 20:15: Glucometer 132H 06/10/16 05:59: Glucometer 97 Microbiology 06/03/16 Urine Culture - Final, Complete Enterococcus Faecalis Probable Actinomyces Assessment/Plan Assessment/Plan Assess & Plan/Chief Complaint CVA. Confusion. History of pneumonia. Hypertension. Multiple lung nodules. Diabetes. . CVA. Confusion is less. History of pneumonia. Hypertension. Multiple lung nodules. Patient improving since seen yesterday. . 06/05. CVA. Confusion much better. History of pneumonia. Diabetes. Patient communicating better. Patient doesn't know her address where she lives. But she can write if. . 06/06/16. CVA. Patient still does not know her address at home. History of pneumonia. Diabetes. . 06/09/16. Stroke. Patient speaking better. Patient has improved area Patient can now verbalize home address. . 06/10/16. infection finished. CVA. Confusion better. Patient speaking better Clinical Quality Measures DVT/VTE Risk/Contraindication: Risk Factor Score Per Nursin RFS Level Per Nursing on Admit: 4+=Very High LALO HERRERA DO Jun 10, 2016 07:49
[2016-06-10] MEDS: CLOPIDOGREL 75 MG (PLAVIX) TABLET PO SCH (09:01)
[2016-06-10] MEDS: PROPRANOLOL 20 MG (INDERAL) TABLET PO SCH (09:01)
[2016-06-10] MEDS: NICOTINE 14 MG (NICODERM) PATCH TD SCH (09:01)
[2016-06-10] MEDS: ALPRAZolam 0.25 MG (XANAX) TAB PO SCH ×2 (09:01→20:16)
[2016-06-10] MEDS: ASPIRIN E.C. 325 MG (ECOTRIN) TABLET PO SCH (09:01)
[2016-06-10] MEDS: lisINopril 5 MG (PRINIVIL) TABLET PO SCH (09:01)
[2016-06-10] MEDS: NICOTINE PATCH REMOVAL TP SCH (09:01)
[2016-06-10 09:04] VITALS: BP 109/64
--- NOTE | 2016-06-10 10:33 | Physical Therapy Daily Note ---
PT Daily Note-Current Subjective Pt is asleep sidelying in bed upon arrival. Pt agrees to PT. Mental Status Patient Orientation: Person, Place, Situation Transfers Functional [place] Measure 0=Not Assessed/NA 4=Minimal Assistance 1=Total Assistance 5=Supervision or Setup 2=Maximal Assistance 6=Modified [place] 3=Moderate Assistance 7=Complete IndependenceIRFPAI Quality Coding Scale 6 Independent with activity with or without an assistive device 5 Patient requires set up or clean up by helper. Patient completes activity by themselves 4 Supervision or touching assist (CGA). [place] provide cues , steadying assist 3 The helper provides less than half the effort to complete the activity 2 The helper provides more than half the effort to complete the activity 1 Dependent. The helper does all the effort to complete an activity 7 Patient refused to complete or attempt activity 9 The patient did not perform the activity before the current illness or injury 88 Not attempted due to Medical conditions or safety concerns Transfers (B, C, W/C) (FIM): 5 Scootin Rollin Roll Left to Right (QC): 6 Supine to/from Sit: 6 Sit to/from Stand: 5 Sit to Lying (QC): 5 Sit to Stand (QC): 5 Chair/Eoh-mb-Uvxkd Xfer(QC): 5 Bed to/from Chair: 5 Weight Bearing Weight Bearing Restriction: Full Weight Bearing Location Restriction: LE Bilateral Gait Training Does the Patient Walk?: Yes Gait (FIM): 5 Distance (FIM): 3=150 ft Distance: 150' Walk 10 feet (QC): 5 Walk 50 ft with 2 Turns(QC): 5 Walk 150 ft (QC): 5 Gait Level of Assist: 5 Gait Persons Needed: 1 Gait Assistive Device: FWW Pt walks with normalized gait but [place] is slow. Pt is impulsive at times. Wheelchair Training Does the Pt Use a Wheelchair?: No Exercises Standing: Hip Abduction, Hamstring curls NuStep Minutes: 12 NuStep Workload: 4 Treatments Pt wants to change out of pjs and into clothes before leaving room for tx. Pt transfers at SBA from seated surface. Pt ambulates using FWW at SBA. Pt uses NuStep and Standing Ex. for strengthening and activity tolerance. OT wants to see pt in Therapy Gym after PT tx. Pt is left with OT with all needs met at end of tx. Assessment Pt is improving with independence with transfers and mobility. PT Short Term Goals Short Term Goals Time Frame: Jun 09, 2016 Gait (FIM): 4 Gait Distance Comment: 200' Gait Level of Assist: 4 (CGA) Gait Assistive Device: FWW PT Shelter Goals Shelter Goals PT Shelter Goals Time Frame: Jun 23, 2016 Transfers (B,C,W/C) (FIM): 5 Sit to Lying (QC): 6 Lying-Sitting on Side/Bed(QC): 6 Sit to Stand (QC): 4 Rollin Roll Left to Right (QC): 6 Car Transfer (QC): 4 Does the Patient Walk: Yes Gait (FIM): 5 Distance: 300' Walk 10 feet (QC): 4 Walk 10ft-Uneven Surface(QC): 4 Walk 50ft with 2 Turns (QC): 4 Walk 150 ft (QC): 4 Gait Level of Assist: 5 Gait Assistive Device: FWW Stairs (FIM): 2 # of Steps: 8 1 Step (curb) (QC): 4 4 Steps (QC): 4 12 Steps (QC): 88 Stairs Level Of Assist: 4 (CGA) Picking up an Object (QC): 88 PT Plan Problem List Problem List: Activity Tolerance, Functional Strength, Safety, Gait Treatment/Plan Treatment Plan: Continue Plan of Care Treatment Plan: Bed Mobility, Education, Functional Activity Lio, Functional Strength, Group Therapy, Gait, Safety, Therapeutic Exercise, Transfers Treatment Duration: Jun 23, 2016 Visits Per Week: 10-11 Minutes/Day (M-F): 60-90 Minutes/Day (Sat/Braun): 15-30 Safety Risks/Education Patient Education: Gait Training, Transfer Techniques, Correct Positioning, Safety Issues Teaching Recipient: Patient Teaching Methods: Discussion Response to Teaching: Verbalize Understanding Time/GCodes Time In: 915 Time Out: 1000 Total Billed Treatment Time: 45 Total Billed Treatment visit, FA(15m) & EX X2 (30m) RUBI KEATING PTA Jun 10, 2016 10:33
--- NOTE | 2016-06-10 11:51 | Occupational Ther Daily Note ---
OT Current Status-Daily Note Subjective Pt alert, finishing up with PT. OT took over care of pt in therapy gym. Pt agreed to therapy. No pain at this time. Mental Status/Objective Functional [place] Measure 0=Not Assessed/NA 4=Minimal Assistance 1=Total Assistance 5=Supervision or Setup 2=Maximal Assistance 6=Modified [place] 3=Moderate Assistance 7=Complete [place] ADL-Treatment Functional [place] Measure 0=Not Assessed/NA 4=Minimal Assistance 1=Total Assistance 5=Supervision or Setup 2=Maximal Assistance 6=Modified [place] 3=Moderate Assistance 7=Complete IndependenceIRFPAI Quality Coding Scale 6 Independent with activity with or without an assistive device 5 Patient requires set up or clean up by helper. Patient completes activity by themselves 4 Supervision or touching assist (CGA). [place] provide cues , steadying assist 3 The helper provides less than half the effort to complete the activity 2 The helper provides more than half the effort to complete the activity 1 Dependent. The helper does all the effort to complete an activity 7 Patient refused to complete or attempt activity 9 The patient did not perform the activity before the current illness or injury 88 Not attempted due to Medical conditions or safety concerns Grooming (FIM): 6 (Standing at sink with FWW to complete grooming.) Bathing (FIM): 5 (Safety concerns. Using shower bench, hand held shower and grabbars pt is able to complete own bathing.) Upper Body (FIM): 5 (After set up, pt is able to complete upper body dressing.) Lower Body Dressing (FIM): 5 (After set up, pt is able to don/doff lower body clothing with CGA to hike over hips due to pt standing when donnning pants over feet. Dons/doffs socks/shoes by self.) Toileting (FIM): 6 (Using grabbar and FWW pt is able to complete by self.) Transfers (B, C, W/C) (FIM): 5 (Safety concerns. Using FWW pt is able to complete by self.) Toilet/Commode Transfer (FIM): 6 (Using FWW and grabbbar pt is able to complete by self.) Shower Transfer(FIM): 5 (Using shower bench, grabbars and FWW pt is able to transfer with supervision.) Other Treatment Pt completed fine motor and visual perceptual tasks. Pt tends to place objects toward R side of body, if unable to complete pt will then turn body so that the objects are on the right field of vision. Pt was able to make copy of model then draw it. Pt was able to complete a 5 piece model then draw without difficulty or cues. Pt then attempted to complete a 10 piece model, after the first five pieces completed pt unable to focus and complete task, required verbal cues to regain focus. Pt has demonstrated progress to hold onto what task to do for 10 min then appears to get anxious and loose focus. Pt demonstrates strategies for L visual field neglect by how she positions body. After therapy, pt lying in bed with call light/phone in reach. All needs met in room. OT Short Term Goals Short Term Goals Time Frame: Jun 09, 2016 Grooming(FIM): 5 Lower Body Dressing(FIM): 5 Toileting(FIM): 5 1=Demonstrate adherence to instructed precautions during ADL tasks. 2=Patient will verbalize/demonstrate understanding of assistive devices/ modifications for ADL. 3=Patient will improve strength/tolerance for activity to enable patient to perform ADL's. OT Brake Holder Goals Senior Care Goals Time Frame: Jun 27, 2016 Eating (FIM): 6 Eating (QC): 6 Groomin Oral Hygiene (QC): 6 Bathing(FIM): 5 Shower/Bathe Self (QC): 5 Upper Body Dressing(FIM): 6 Upper Body Dressing (QC): 6 Lower Body Dressing(FIM): 6 Lower Body Dressing (QC): 6 On/Off Footwear (QC): 6 Toileting(FIM): 6 Toileting Hygiene (QC): 6 Transfers (B,C,W/C) (FIM): 6 Toilet/Commode Transfer(FIM): 6 Toilet/Commode Transfer (QC): 6 Shower Transfer(FIM): 5 Comprehension(FIM): 3 Expression (FIM): 5 Social Interaction(FIM): 5 Problem Solving(FIM): 3 Memory(FIM): 3 Additional Goals: 2-Verbalize Understanding, 3-ImproveStrength/Lio (and coordination) 1=Demonstrate adherence to instructed precautions during ADL tasks. 2=Patient will verbalize/demonstrate understanding of assistive devices/ modifications for ADL. 3=Patient will improve strength/tolerance for activity to enable patient to perform ADL's. OT Education/Plan Discharge Recommendations Plan/Recommendations: Continue POC Treatment Plan/Plan of Care Patient would benefit from OT for education, treatment and training to promote independence in ADL's, mobility, safety and/or upper extremity function for ADL' s. Plan of Care: ADL Retraining, Cognitive Retraining, Functional Mobility, Group Exercise/Act as Ind (educaiton, exercise, communication, activity tolerance, socialization), UE Funct Exercise/Act, UE Neuromus Re-Ed/Coord, Visual/ Perceptual Retrain Treatment Duration: Jun 27, 2016 Visits Per Week: 10-11 Minutes/Day (M-F): 75-90 Minutes/Day (Sat/Braun): PRN Agreement: Yes Rehab Potential: Guarded Time/GCodes Start Time: 10:00 Stop Time: 11:15 Total Time Billed (hr/min): 75 Billed Treatment Time 1 visit-ADL 3 (45min) NM 2 (30 min) SABRINA ROWLAND Jun 10, 2016 11:50
--- NOTE | 2016-06-10 13:40 | PM & R (SOAP) Progress Note ---
Subjective Subjective/Events-last exam Patient was seen in her room earlier today Discussed case with DR Anderson earlier today Speech intelligibilty improving daily Patient SBA for transfers Objective Exam Last Set of Vital Signs Vital Signs Date Time Temp Pulse Resp B/P Pulse Ox O2 Delivery O2 Flow Rate FiO2 06/10/16 09:04 67 109/64 06/10/16 09:00 Room Air 06/10/16 06:00 99.5 20 97 Capillary Refill : I&O Intake and Output 06/10/16 00:00 Intake Total 1050 ml Balance 1050 ml Intake Oral 1050 ml # Voids 6 General: Alert, Cooperative, No Acute Distress HEENT: Atraumatic, PERRLA, EOMI, Mucous Memb Moist/[place], Other (Aphasia and Dysphagia) Neck: Supple, No JVD, Other (left CEA site healing well no drainage) Lungs: Clear to Auscultation Heart: Regular Rate Abdomen: Normal Bowel Sounds, Soft, No Tenderness Extremities: No Edema Neuro: Other (Mild rt sided weakness and dyscoordination as well as aphasia and dysphagia) Results Lab Laboratory Tests 06/07/16 16:10: Glucometer 178H 06/07/16 21:06: Glucometer 202H 06/08/16 04:53: Glucometer 132H 06/08/16 12:00: Glucometer 145H 06/08/16 20:34: Glucometer 168H 06/09/16 05:52: Glucometer 106 06/09/16 11:06: Glucometer 121H 06/09/16 16:26: Glucometer 139H 06/09/16 17:29: Urine Bacteria NONE, Urine Bilirubin NEGATIVE, Urine Casts NONE, Urine Clarity CLEAR, Urine Color YELLOW, Urine Crystals NONE, Urine Culture Indicated NO, Urine Glucose (UA) NEGATIVE, Urine Ketones NEGATIVE, Urine Leukocyte Esterase 2+ H, Urine Mucus SMALLH, Urine Nitrite NEGATIVE, Urine Protein NEGATIVE, Urine RBC NONE, Urine RBC (Auto) NEGATIVE, Urine Specific [place] 1.025H, Urine Squamous Epithelial Cells 5-10, Urine Urobilinogen NORMAL, Urine WBC 2-5, Urine pH 5 06/09/16 20:15: Glucometer 132H 06/10/16 05:59: Glucometer 97 Microbiology 06/03/16 Urine Culture - Final, Complete Enterococcus Faecalis Probable Actinomyces Assessment/Plan Assessment Left cva with Rt HP mild and aphasia and dysphagia UTI on antibioitc HTN controlled / S/P Left CEA foe coritid Artery D DM controlled Tremors -appears improved with low-dose B Rose Smoking cessation-Nicoderm patch Plan Continue PT/OT/ST Diet advanced as per ST re UTI-treated aPPRECXIATE dr Arias NOTE AND ORDERS F/U re tremors-trial of low dose Beta rose -appears improved, Overall patient progressing well with speech improving daily. Next Team Conference tomorrow 06/11/16 INGE MILLER MD Jun 10, 2016 13:39
--- NOTE | 2016-06-10 15:10 | Speech Therapy Daily Note ---
Speech Daily Progress Note Subjective The patient was seated upright in bed upon entrance. The patient greeted the clinician appropriately and agreed to participate in the dysphagia and cognitive treatment session on this date. Objective The Brien Cognitive Assessment (MoCA) Version Two was provided on this date to complete an assessment prior to discharge. The patient demonstrated a moderate cognitive (improvement from his initial evaluation where the patient was unable to complete the MoCA due to severe auditory comprehension difficulties) impairment displaying a result of +[id number]. Below are the specific results of the evaluation: - Visuospatial/Executive Function: The patient was able to accurately copy a rectangle and draw a clock. The patient was unable to complete trail-making activity or place the accurate time on the clock. - Naming: The patient was able to name three of three single items. - Memory (Immediate and Delayed): The patient was able to recall three of five single words immediately and zero of five single words following a five minute delay. - Attention: The patient was able to repeat five digits immediately and identify a letter in a string of letters. The patient was unable to provide three digits in reverse order (working memory). - Language: The patient was able to accurately repeat single phrases. - Abstractions: The patient was able to state a similarity between two items ( simple and complex). - Orientation: The patient was oriented to month, year, place and city. The patient did not recall the date of day of week. Dysphagia Exercises: The patient continues to demonstrate fair to good accuracy with dysphagia exercises following one occasion of direct clinician modeling. Assessment Assessment Current Status: Good Progress Treatment Plan Continue Plan of Care Communication Comprehension: 3 Expression: 3 Social Cognition Social Interaction: 4 Problem Solvin Memory: 2 Speech Short Term Goals Short Term Goals Short Term Goals 1. The patient will tolerate trials of the least restrictive consistency without signs/symptoms of aspiration. MET 06/05/2016 2. The patient will demonstrate laryngeal, pharyngeal and base of tongue exercises with 80% accuracy, independently. PROGRESSING 3. The patient will demonstrate swallowing strategies with 90% accuracy, independently. PROGRESSING 4. The patient will state orientation information with 80% accuracy and moderate clinician verbal cueing. PROGRESSING 5. The patient will respond to simple yes/no questions with 80% accuracy and moderate clinician verbal cueing. MET 06/05/2016 6. The patient will follow simple, one-step commands with 80% accuracy and direct modeling. MET 06/05/2016 7. Patient will state the name of common items with 80% accuracy and mild clinician cueing. MET 06/05/2016 Time Frame-STG: Three Weeks Speech [place] Worker Goals Prison Goals 1. The patient will tolerate the least restrictive diet without signs/symptoms of aspiration or laryngeal penetration. 2. The patient will demonstrate improved receptive language for increased function and safety with ADL's in the least restrictive environment. Time Frame: Four Weeks Comprehension: 3 Expression: 5 Social Interaction: 5 Problem Solvin Memory: 3 Speech-Plan Treatment Plan Speech Therapy Treatment Plan: Continue Plan of Care Continue skilled speech therapy to target expressive and receptive communication. Treatment Duration: Jul 01, 2016 # of days/week Five. Visits Per Week: Ten. Minutes/Day (M-F): 60 Rehab Potential: Guarded Safety Risks/Education Teaching Recipient: Patient Teaching Methods: Discussion Response to Teaching: Verbalize Understanding Education Topics Provided: Plan of Care, Results Time Speech Therapy Time In: 08:00 Speech Therapy Time Out: 09:00 Total Billed Time: 60 Billed Treatment Time 1, BALDO 1, MICHELLE DE LA PAZ Jun 10, 2016 15:10
[2016-06-10 18:28] VITALS: BP 120/61
[2016-06-10] MEDS: ATORVASTATIN 80 MG (LIPITOR) TABLET PO SCH (20:16)
[2016-06-11] MEDS: GLIMEPIRIDE 2 MG (AMARYL) TAB PO SCH ×2 (05:58→16:26)
[2016-06-11 06:25] VITALS: BP 115/60
[2016-06-11] MEDS: lisINopril 5 MG (PRINIVIL) TABLET PO SCH (08:12)
[2016-06-11] MEDS: NICOTINE PATCH REMOVAL TP SCH (08:12)
[2016-06-11] MEDS: NICOTINE 14 MG (NICODERM) PATCH TD SCH (08:12)
[2016-06-11] MEDS: ALPRAZolam 0.25 MG (XANAX) TAB PO SCH ×2 (08:12→21:02)
[2016-06-11] MEDS: ASPIRIN E.C. 325 MG (ECOTRIN) TABLET PO SCH (08:12)
[2016-06-11] MEDS: PROPRANOLOL 20 MG (INDERAL) TABLET PO SCH (08:12)
[2016-06-11] MEDS: CLOPIDOGREL 75 MG (PLAVIX) TABLET PO SCH (08:12)
--- NOTE | 2016-06-11 08:43 | PM & R (SOAP) Progress Note ---
Subjective Subjective/Events-last exam Patient was seen in her room this AM Progressing well with therapies Patient min assist for transfers Objective Exam Last Set of Vital Signs Vital Signs Date Time Temp Pulse Resp B/P Pulse Ox O2 Delivery O2 Flow Rate FiO2 06/11/16 06:25 97.2 80 20 115/60 99 Room Air Capillary Refill : I&O Intake and Output 06/11/16 00:00 Intake Total 900 ml Balance 900 ml Intake Oral 900 ml # Voids 4 # Bowel Movements 1 General: Alert, Cooperative, No Acute Distress HEENT: Atraumatic, PERRLA, EOMI, Mucous Memb Moist/[place], Other (Aphasia and Dysphagia) Neck: Supple, No JVD, Other (left CEA site healing well no drainage) Lungs: Clear to Auscultation Heart: Regular Rate Abdomen: Normal Bowel Sounds, Soft, No Tenderness Extremities: No Edema Neuro: Other (Mild rt sided weakness and dyscoordination as well as aphasia and dysphagia) Results Lab Laboratory Tests 06/08/16 12:00: Glucometer 145H 06/08/16 20:34: Glucometer 168H 06/09/16 05:52: Glucometer 106 06/09/16 11:06: Glucometer 121H 06/09/16 16:26: Glucometer 139H 06/09/16 17:29: Urine Bacteria NONE, Urine Bilirubin NEGATIVE, Urine Casts NONE, Urine Clarity CLEAR, Urine Color YELLOW, Urine Crystals NONE, Urine Culture Indicated NO, Urine Glucose (UA) NEGATIVE, Urine Ketones NEGATIVE, Urine Leukocyte Esterase 2+ H, Urine Mucus SMALLH, Urine Nitrite NEGATIVE, Urine Protein NEGATIVE, Urine RBC NONE, Urine RBC (Auto) NEGATIVE, Urine Specific [place] 1.025H, Urine Squamous Epithelial Cells 5-10, Urine Urobilinogen NORMAL, Urine WBC 2-5, Urine pH 5 06/09/16 20:15: Glucometer 132H 06/10/16 05:59: Glucometer 97 06/10/16 11:03: Glucometer 142H 06/10/16 16:16: Glucometer 132H 06/10/16 20:15: Glucometer 184H 06/11/16 05:37: Glucometer 161H Microbiology 06/03/16 Urine Culture - Final, Complete Enterococcus Faecalis Probable Actinomyces Assessment/Plan Assessment 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 Next Team Conference later today 06/11/16-See report for full functional update and POC and INGE MORALES MD Jun 11, 2016 08:43
--- NOTE | 2016-06-11 08:50 | Progress Note (SOAP) ---
Subjective Subjective/Events-last exam stroke. Patient speaking better. Thought processes improving Objective Exam Vital Signs Date Time Temp Pulse Resp B/P Pulse Ox O2 Delivery O2 Flow Rate FiO2 06/11/16 06:25 97.2 80 20 115/60 99 Room Air 06/10/16 20:18 Room Air 06/10/16 18:28 96.5 70 14 120/61 97 06/10/16 09:04 67 109/64 06/10/16 09:00 Room Air I & O 06/11/16 07:00 Intake Total 1040 ml Balance 1040 ml Capillary Refill : General Appearance: No Apparent Distress WD/WN Results Lab Laboratory Tests 06/10/16 11:03: Glucometer 142H 06/10/16 16:16: Glucometer 132H 06/10/16 20:15: Glucometer 184H 06/11/16 05:37: Glucometer 161H Microbiology 06/03/16 Urine Culture - Final, Complete Enterococcus Faecalis Probable Actinomyces Assessment/Plan Assessment/Plan Assess & Plan/Chief Complaint CVA. Confusion. History of pneumonia. Hypertension. Multiple lung nodules. Diabetes. . CVA. Confusion is less. History of pneumonia. Hypertension. Multiple lung nodules. Patient improving since seen yesterday. . 06/05. CVA. Confusion much better. History of pneumonia. Diabetes. Patient communicating better. Patient doesn't know her address where she lives. But she can write if. . 06/06/16. CVA. Patient still does not know her address at home. History of pneumonia. Diabetes. . 06/09/16. Stroke. Patient speaking better. Patient has improved area Patient can now verbalize home address. . 06/10/16. infection finished. CVA. Confusion better. Patient speaking better. . 06/11/16. CVA. Confusion better . History of pneumonia. Hypertension. Multiple lung nodules. Patient improving with speech and thought process Clinical Quality Measures DVT/VTE Risk/Contraindication: Risk Factor Score Per Nursin RFS Level Per Nursing on Admit: 4+=Very High LALO HERRERA DO Jun 11, 2016 08:50
--- NOTE | 2016-06-11 10:12 | Physical Therapy Daily Note ---
PT Daily Note-Current Subjective Pt sitting up in recliner upon arrival. Pt agrees to PT. Pain Location: No Pain Reported Mental Status Patient Orientation: Person, Place, Situation Transfers Functional [place] Measure 0=Not Assessed/NA 4=Minimal Assistance 1=Total Assistance 5=Supervision or Setup 2=Maximal Assistance 6=Modified [place] 3=Moderate Assistance 7=Complete IndependenceIRFPAI Quality Coding Scale 6 Independent with activity with or without an assistive device 5 Patient requires set up or clean up by helper. Patient completes activity by themselves 4 Supervision or touching assist (CGA). [place] provide cues , steadying assist 3 The helper provides less than half the effort to complete the activity 2 The helper provides more than half the effort to complete the activity 1 Dependent. The helper does all the effort to complete an activity 7 Patient refused to complete or attempt activity 9 The patient did not perform the activity before the current illness or injury 88 Not attempted due to Medical conditions or safety concerns Transfers (B, C, W/C) (FIM): 5 Scootin Sit to/from Stand: 5 Sit to Stand (QC): 5 Weight Bearing Weight Bearing Restriction: Full Weight Bearing Location Restriction: LE Bilateral Gait Training Does the Patient Walk?: Yes Gait (FIM): 5 Distance (FIM): 3=150 ft Distance: 250' Walk 10 feet (QC): 5 Walk 50 ft with 2 Turns(QC): 5 Walk 150 ft (QC): 5 Gait Level of Assist: 5 Gait Persons Needed: 1 Gait Assistive Device: FWW Pt walks with slight shuffling of B feet and medial portion of each foot brushes each other while walking. PT gave VC to correct and pt did correct but it took extra mental effort to accomplish. Pt fatigues and requires rest break. Wheelchair Training Does the Pt Use a Wheelchair?: No Exercises Seated Therapy Exercises: Ankle pumps, Long arc quads, Hip flexion, Kicking activity Seated Reps: 20 Standing: Hip Abduction, Hamstring curls, Heel/toe raises, 3 way Ex=Flex, Abd, Ext, Mini squats, Weight shifts Standing Reps: 20 Treatments Pt transfers at SBA from seated surface. Pt ambulates using FWW at SBA. Pt completes Seated Ex in chair and Standing Ex at //bars to increase strength, balance and activity tolerance. Pt ambulates to chair in [facility] for OT tx. Pt is left with OT and all needs met at end of tx. Assessment Current Status: Good Progress Pt is improving with transfers, balance and ambulation independence. PT Short Term Goals Short Term Goals Time Frame: Jun 09, 2016 Gait (FIM): 4 Gait Distance Comment: 200' Gait Level of Assist: 4 (CGA) Gait Assistive Device: FWW PT Prison Goals Implant Coordinator Goals PT Implant Coordinator Goals Time Frame: Jun 23, 2016 Transfers (B,C,W/C) (FIM): 5 Sit to Lying (QC): 6 Lying-Sitting on Side/Bed(QC): 6 Sit to Stand (QC): 4 Rollin Roll Left to Right (QC): 6 Car Transfer (QC): 4 Does the Patient Walk: Yes Gait (FIM): 5 Distance: 300' Walk 10 feet (QC): 4 Walk 10ft-Uneven Surface(QC): 4 Walk 50ft with 2 Turns (QC): 4 Walk 150 ft (QC): 4 Gait Level of Assist: 5 Gait Assistive Device: FWW Stairs (FIM): 2 # of Steps: 8 1 Step (curb) (QC): 4 4 Steps (QC): 4 12 Steps (QC): 88 Stairs Level Of Assist: 4 (CGA) Picking up an Object (QC): 88 PT Plan Problem List Problem List: Activity Tolerance, Functional Strength, Safety, Balance, Gait Treatment/Plan Treatment Plan: Continue Plan of Care Treatment Plan: Bed Mobility, Education, Functional Activity Lio, Functional Strength, Group Therapy, Gait, Safety, Therapeutic Exercise, Transfers Treatment Duration: Jun 23, 2016 Visits Per Week: 10-11 Minutes/Day (M-F): 60-90 Minutes/Day (Sat/Braun): 15-30 Safety Risks/Education Patient Education: Gait Training, Transfer Techniques, Correct Positioning, Safety Issues Teaching Recipient: Patient Teaching Methods: Discussion Response to Teaching: Verbalize Understanding Time/GCodes Time In: 915 Time Out: 1000 Total Billed Treatment Time: 45 Total Billed Treatment visit, GT (15m) & EX X2 (30m) RUBI KEATING PTA Jun 11, 2016 10:11
--- NOTE | 2016-06-11 10:50 | Speech Therapy Daily Note ---
Speech Daily Progress Note Subjective The patient was sitting upright in recliner upon entrance. The patient greeted the clinician appropriately and agreed to participate in language and dysphagia therapy on this date. Objective Auditory Comprehension: - Comparison: The patient demonstrated 97% accuracy (independently) with comparison of two like objects. - Two-Step Commands: The patient demonstrated 90% accuracy with two-step commands, independently. - Immediate recall: The patient demonstrated 97% accuracy (independently) with recall of two items from a previously read sentence. Dysphagia: - The patient demonstrated good accuracy with base of tongue, laryngeal, and pharyngeal strengthening exercises with mild clinician verbal cueing and one occasion of direct modeling. Assessment Assessment Current Status: Excellent Progress Treatment Plan Continue Plan of Care Communication Comprehension: 3 Expression: 4 Social Cognition Social Interaction: 5 Problem Solvin Memory: 2 Speech Short Term Goals Short Term Goals Short Term Goals 1. The patient will tolerate trials of the least restrictive consistency without signs/symptoms of aspiration. MET 06/05/2016 2. The patient will demonstrate laryngeal, pharyngeal and base of tongue exercises with 80% accuracy, independently. PROGRESSING 3. The patient will demonstrate swallowing strategies with 90% accuracy, independently. PROGRESSING 4. The patient will state orientation information with 80% accuracy and moderate clinician verbal cueing. PROGRESSING 5. The patient will respond to simple yes/no questions with 80% accuracy and moderate clinician verbal cueing. MET 06/05/2016 6. The patient will follow simple, one-step commands with 80% accuracy and direct modeling. MET 06/05/2016 7. Patient will state the name of common items with 80% accuracy and mild clinician cueing. MET 06/05/2016 Time Frame-STG: Three Weeks Speech Paperhanger Apprentice Goals Senior Living Goals 1. The patient will tolerate the least restrictive diet without signs/symptoms of aspiration or laryngeal penetration. 2. The patient will demonstrate improved receptive language for increased function and safety with ADL's in the least restrictive environment. Time Frame: Four Weeks Comprehension: 3 Expression: 5 Social Interaction: 5 Problem Solvin Memory: 3 Speech-Plan Treatment Plan Speech Therapy Treatment Plan: Continue Plan of Care Continue skilled speech therapy to target receptive communication and functional memory strategies for use at home. Treatment Duration: Jul 01, 2016 # of days/week Five. Visits Per Week: Ten. Minutes/Day (M-F): 60 Rehab Potential: Guarded Safety Risks/Education Teaching Recipient: Patient Teaching Methods: Demonstration, Handout, Discussion Response to Teaching: Verbalize Understanding Education Topics Provided: Dysphagia Exercises Time Speech Therapy Time In: 08:15 Speech Therapy Time Out: 09:15 Total Billed Time: 60 Billed Treatment Time 1, BALDO 1, [facility] LA [facility] 10[facility]
--- NOTE | 2016-06-11 11:27 | Occupational Ther Daily Note ---
OT Current Status-Daily Note Subjective Pt alert, finishing with PT. OT took over care of pt in [facility]. No c /o pain at this time. Mental Status/Objective Patient Orientation: Person, Place, Time, Situation Functional [place] Measure 0=Not Assessed/NA 4=Minimal Assistance 1=Total Assistance 5=Supervision or Setup 2=Maximal Assistance 6=Modified [place] 3=Moderate Assistance 7=Complete [place] ADL-Treatment Functional [place] Measure 0=Not Assessed/NA 4=Minimal Assistance 1=Total Assistance 5=Supervision or Setup 2=Maximal Assistance 6=Modified [place] 3=Moderate Assistance 7=Complete IndependenceIRFPAI Quality Coding Scale 6 Independent with activity with or without an assistive device 5 Patient requires set up or clean up by helper. Patient completes activity by themselves 4 Supervision or touching assist (CGA). [place] provide cues , steadying assist 3 The helper provides less than half the effort to complete the activity 2 The helper provides more than half the effort to complete the activity 1 Dependent. The helper does all the effort to complete an activity 7 Patient refused to complete or attempt activity 9 The patient did not perform the activity before the current illness or injury 88 Not attempted due to Medical conditions or safety concerns Other Treatment Pt sat in [facility] and completed fine motor task copying/building from picture. Pt completed with minimal difficulty, distinguishing correct pieces with similar shapes. Able to see what was wrong though not sure how to fix. Pt able to focus on fine motor task with distractions until task was complete. Then using environmental indoor signs was able to find specified area in hospital and the way back to her room. Used w/c to decrease the amount of motor planning that was needed to use FWW and find specified place. Pt demonstrated a decrease in anxiety and increased focus on task. Pt was unsure of herself during task, but was able to use environmental signs and maps around the hospital to reach destination. Pt had difficulty stating whether to turn L or R, but was able to point to the correct direction. Arm bike completed 15 min duration at 20 arce resistance to increase strength and endurance for daily functional tasks. Pt ambulated to room with FWW then transferred into bed by self. After therapy, pt lying in bed with call light/phone in reach. All needs met in room. OT Short Term Goals Short Term Goals Time Frame: Jun 09, 2016 Grooming(FIM): 5 Lower Body Dressing(FIM): 5 Toileting(FIM): 5 1=Demonstrate adherence to instructed precautions during ADL tasks. 2=Patient will verbalize/demonstrate understanding of assistive devices/ modifications for ADL. 3=Patient will improve strength/tolerance for activity to enable patient to perform ADL's. OT Data Security Analyst Goals Jail Goals Time Frame: Jun 27, 2016 Eating (FIM): 6 Eating (QC): 6 Groomin Oral Hygiene (QC): 6 Bathing(FIM): 5 Shower/Bathe Self (QC): 5 Upper Body Dressing(FIM): 6 Upper Body Dressing (QC): 6 Lower Body Dressing(FIM): 6 Lower Body Dressing (QC): 6 On/Off Footwear (QC): 6 Toileting(FIM): 6 Toileting Hygiene (QC): 6 Transfers (B,C,W/C) (FIM): 6 Toilet/Commode Transfer(FIM): 6 Toilet/Commode Transfer (QC): 6 Shower Transfer(FIM): 5 Comprehension(FIM): 3 Expression (FIM): 5 Social Interaction(FIM): 5 Problem Solving(FIM): 3 Memory(FIM): 3 Additional Goals: 2-Verbalize Understanding, 3-ImproveStrength/Lio (and coordination) 1=Demonstrate adherence to instructed precautions during ADL tasks. 2=Patient will verbalize/demonstrate understanding of assistive devices/ modifications for ADL. 3=Patient will improve strength/tolerance for activity to enable patient to perform ADL's. OT Education/Plan Discharge Recommendations Plan/Recommendations: Continue POC Treatment Plan/Plan of Care Patient would benefit from OT for education, treatment and training to promote independence in ADL's, mobility, safety and/or upper extremity function for ADL' s. Plan of Care: ADL Retraining, Cognitive Retraining, Functional Mobility, Group Exercise/Act as Ind (educaiton, exercise, communication, activity tolerance, socialization), UE Funct Exercise/Act, UE Neuromus Re-Ed/Coord, Visual/ Perceptual Retrain Treatment Duration: Jun 27, 2016 Visits Per Week: 10-11 Minutes/Day (M-F): 75-90 Minutes/Day (Sat/Braun): PRN Agreement: Yes Rehab Potential: Guarded Time/GCodes Start Time: 10:00 Stop Time: 11:00 Total Time Billed (hr/min): 60 Billed Treatment Time 1 visit-NM 3 (45 min) EX 1 (15 min) SABRINA ROWLAND Jun 11, 2016 11:27
--- NOTE | 2016-06-11 15:19 | Therapy Group Daily Note ---
Therapy Daily Group Note Patient Education Topic Other List Below (Word Association ) Other/Notes Pt ambulates to PT/OT Group using FWW at [facility]. Pt participates in Group consisting of Introductions (Name, Where You Live & Favorite Springtime Activity ), Socialization, Word Association and Group Collaboration in Team Word Association activity. Pt actively participated in Word Association activity by finding correct associated word that most closely matches the Therapy or Everyday Item word. Pt worked on word finding. Pt returned to room to rest in bed at the end of tx with all needs met. Start Time: 13:00 Stop Time: 14:15 Total Billed Treatment Time: 75 Total Billed Treatment 1, GRP SILVANORUBI ZARATE MATERIAL ASSEMBLER Jun 11, 2016 15:18
[2016-06-11 18:00] VITALS: BP 103/65
[2016-06-11] MEDS: ATORVASTATIN 80 MG (LIPITOR) TABLET PO SCH (21:02)
[2016-06-12 05:10] VITALS: BP 120/71
[2016-06-12] MEDS: GLIMEPIRIDE 2 MG (AMARYL) TAB PO SCH ×2 (06:05→17:25)
[2016-06-12] MEDS: ALPRAZolam 0.25 MG (XANAX) TAB PO SCH ×2 (07:54→20:12)
[2016-06-12] MEDS: lisINopril 5 MG (PRINIVIL) TABLET PO SCH (07:54)
[2016-06-12] MEDS: CLOPIDOGREL 75 MG (PLAVIX) TABLET PO SCH (07:54)
[2016-06-12] MEDS: NICOTINE PATCH REMOVAL TP SCH (07:54)
[2016-06-12] MEDS: PROPRANOLOL 20 MG (INDERAL) TABLET PO SCH (07:54)
[2016-06-12] MEDS: ASPIRIN E.C. 325 MG (ECOTRIN) TABLET PO SCH (07:54)
[2016-06-12] MEDS: NICOTINE 14 MG (NICODERM) PATCH TD SCH (07:54)
--- NOTE | 2016-06-12 08:41 | Progress Note (SOAP) ---
Subjective Subjective/Events-last exam stroke. Patient speaking better. Patient answering questions a little quicker Objective Exam Vital Signs Date Time Temp Pulse Resp B/P Pulse Ox O2 Delivery O2 Flow Rate FiO2 06/12/16 05:10 98.0 63 16 120/71 98 Room Air 06/11/16 21:00 Room Air 06/11/16 18:00 97.2 70 18 103/65 98 Room Air 06/11/16 09:00 Room Air I & O 06/12/16 07:00 Intake Total 1200 ml Balance 1200 ml Capillary Refill : General Appearance: No Apparent Distress WD/WN HEENT: Normal ENT Inspection Neck: Normal Inspection Respiratory: Chest Non Tender Lungs Clear Normal Breath Sounds No Accessory Muscle Use No Respiratory Distress Cardiovascular: Regular Rate, Rhythm No Murmur Results Lab Laboratory Tests 06/11/16 11:20: Glucometer 138H 06/11/16 21:01: Glucometer 171H Microbiology 06/03/16 Urine Culture - Final, Complete Enterococcus Faecalis Probable Actinomyces Assessment/Plan Assessment/Plan Assess & Plan/Chief Complaint CVA. Confusion. History of pneumonia. Hypertension. Multiple lung nodules. Diabetes. . CVA. Confusion is less. History of pneumonia. Hypertension. Multiple lung nodules. Patient improving since seen yesterday. . 06/05. CVA. Confusion much better. History of pneumonia. Diabetes. Patient communicating better. Patient doesn't know her address where she lives. But she can write if. . 06/06/16. CVA. Patient still does not know her address at home. History of pneumonia. Diabetes. . 06/09/16. Stroke. Patient speaking better. Patient has improved area Patient can now verbalize home address. . 06/10/16. infection finished. CVA. Confusion better. Patient speaking better. . 06/11/16. CVA. Confusion better . History of pneumonia. Hypertension. Multiple lung nodules. Patient improving with speech and thought process. . 06/12/16. CVA. Confusion improving. History of pneumonia. Hypertension. Multiple lung nodules. Diabetes. Patient smiling and positive and working hard Clinical Quality Measures DVT/VTE Risk/Contraindication: Risk Factor Score Per Nursin RFS Level Per Nursing on Admit: 4+=Very High LALO HERRERA DO Jun 12, 2016 08:41
--- NOTE | 2016-06-12 09:01 | Speech Therapy Daily Note ---
Speech Daily Progress Note Subjective The patient was seated upright in bed upon entrance. The patient greeted the clinician appropriately and agreed to participate in language and dysphagia therapy on this date. Objective Word-Finding (Expressive Language): The patient was provided a specific category and letter. The patient was asked to identify an item that "fit into" the category and was initiated with the provided letter. The patient demonstrated good accuracy with this task, displaying 85% accuracy with mild clinician verbal cueing. The patient was provided a specific letter and cue. The patient was asked to identify the word the clinician was defining. The patient demonstrated good accuracy, displaying 85% accuracy with mild clinician verbal cueing. Dysphagia Exercises: The patient demonstrated good accuracy with dysphagia exercises following clinician direct modeling (initially model). The patient denied questions or concerns regarding her swallowing function. Assessment Assessment Current Status: Good Progress Treatment Plan Continue Plan of Care Communication Comprehension: 3 Expression: 4 Social Cognition Social Interaction: 5 Problem Solvin Memory: 2 Speech Short Term Goals Short Term Goals Short Term Goals 1. The patient will tolerate trials of the least restrictive consistency without signs/symptoms of aspiration. MET 06/05/2016 2. The patient will demonstrate laryngeal, pharyngeal and base of tongue exercises with 80% accuracy, independently. PROGRESSING 3. The patient will demonstrate swallowing strategies with 90% accuracy, independently. PROGRESSING 4. The patient will state orientation information with 80% accuracy and moderate clinician verbal cueing. PROGRESSING 5. The patient will respond to simple yes/no questions with 80% accuracy and moderate clinician verbal cueing. MET 06/05/2016 6. The patient will follow simple, one-step commands with 80% accuracy and direct modeling. MET 06/05/2016 7. Patient will state the name of common items with 80% accuracy and mild clinician cueing. MET 06/05/2016 Time Frame-STG: Three Weeks Speech Subcontracts Manager Goals Shelter Goals 1. The patient will tolerate the least restrictive diet without signs/symptoms of aspiration or laryngeal penetration. 2. The patient will demonstrate improved receptive language for increased function and safety with ADL's in the least restrictive environment. Time Frame: Four Weeks Comprehension: 3 Expression: 5 Social Interaction: 5 Problem Solvin Memory: 3 Speech-Plan Treatment Plan Speech Therapy Treatment Plan: Continue Plan of Care Continue skilled speech therapy to target expressive and receptive communication in a functional environment. Treatment Duration: Jul 01, 2016 # of days/week Five. Visits Per Week: Ten. Minutes/Day (M-F): 60 Rehab Potential: Guarded Safety Risks/Education Teaching Recipient: Patient Teaching Methods: Demonstration, Handout, Discussion Response to Teaching: Verbalize Understanding, Return Demonstration Education Topics Provided: Dysphagia Exercises Time Speech Therapy Time In: 08:00 Speech Therapy Time Out: 09:00 Total Billed Time: 60 Billed Treatment Time 1, BALDO 1, MICHELLE DE LA PAZ Jun 12, 2016 09:01
--- NOTE | 2016-06-12 09:27 | PM & R (SOAP) Progress Note ---
Subjective Subjective/Events-last exam Patient was seen in her room this AM Progressing well with therapies Patient SBA for transfers and gait with walker Objective Exam Last Set of Vital Signs Vital Signs Date Time Temp Pulse Resp B/P Pulse Ox O2 Delivery O2 Flow Rate FiO2 06/12/16 09:00 Room Air 06/12/16 05:10 98.0 63 16 120/71 98 Capillary Refill : I&O Intake and Output 06/12/16 00:00 Intake Total 1040 ml Balance 1040 ml Intake Oral 1040 ml # Voids 7 # Bowel Movements 5 General: Alert, Cooperative, No Acute Distress HEENT: Atraumatic, PERRLA, EOMI, Mucous Memb Moist/Point, Other (Aphasia and Dysphagia) Neck: Supple, No JVD, Other (left CEA site healing well no drainage) Lungs: Clear to Auscultation Heart: Regular Rate Abdomen: Normal Bowel Sounds, Soft, No Tenderness Extremities: No Edema Neuro: Other (Mild rt sided weakness and dyscoordination as well as aphasia and dysphagia) Results Lab Laboratory Tests 06/09/16 11:06: Glucometer 121H 06/09/16 16:26: Glucometer 139H 06/09/16 17:29: Urine Bacteria NONE, Urine Bilirubin NEGATIVE, Urine Casts NONE, Urine Clarity CLEAR, Urine Color YELLOW, Urine Crystals NONE, Urine Culture Indicated NO, Urine Glucose (UA) NEGATIVE, Urine Ketones NEGATIVE, Urine Leukocyte Esterase 2+ H, Urine Mucus SMALLH, Urine Nitrite NEGATIVE, Urine Protein NEGATIVE, Urine RBC NONE, Urine RBC (Auto) NEGATIVE, Urine Specific [place] 1.025H, Urine Squamous Epithelial Cells 5-10, Urine Urobilinogen NORMAL, Urine WBC 2-5, Urine pH 5 06/09/16 20:15: Glucometer 132H 06/10/16 05:59: Glucometer 97 06/10/16 11:03: Glucometer 142H 06/10/16 16:16: Glucometer 132H 06/10/16 20:15: Glucometer 184H 06/11/16 05:37: Glucometer 161H 06/11/16 11:20: Glucometer 138H 06/11/16 21:01: Glucometer 171H Microbiology 06/03/16 Urine Culture - Final, Complete Enterococcus Faecalis Probable Actinomyces Assessment/Plan Assessment 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 Team Conference held yesterday 06/11/16-See report for full functional update and POC and INGE MORALES MD Jun 12, 2016 09:27
--- NOTE | 2016-06-12 10:01 | Physical Therapy Daily Note ---
PT Daily Note-Current Subjective Pt supine in bed upon arrival. Pt agrees to PT. Pain Location: No Pain Reported Mental Status Patient Orientation: Person, Place, Situation Transfers Functional [place] Measure 0=Not Assessed/NA 4=Minimal Assistance 1=Total Assistance 5=Supervision or Setup 2=Maximal Assistance 6=Modified [place] 3=Moderate Assistance 7=Complete IndependenceIRFPAI Quality Coding Scale 6 Independent with activity with or without an assistive device 5 Patient requires set up or clean up by helper. Patient completes activity by themselves 4 Supervision or touching assist (CGA). [place] provide cues , steadying assist 3 The helper provides less than half the effort to complete the activity 2 The helper provides more than half the effort to complete the activity 1 Dependent. The helper does all the effort to complete an activity 7 Patient refused to complete or attempt activity 9 The patient did not perform the activity before the current illness or injury 88 Not attempted due to Medical conditions or safety concerns Transfers (B, C, W/C) (FIM): 5 Scootin Rollin Roll Left to Right (QC): 6 Supine to/from Sit: 6 Sit to/from Stand: 5 Sit to Stand (QC): 5 Weight Bearing Weight Bearing Restriction: Full Weight Bearing Location Restriction: LE Bilateral Gait Training Does the Patient Walk?: Yes Distance (FIM): 3=150 ft Distance: 300' Walk 10 feet (QC): 5 Walk 50 ft with 2 Turns(QC): 5 Walk 150 ft (QC): 5 Gait Level of Assist: 5 Gait Persons Needed: 1 Gait Assistive Device: FWW Pt walks with slow [place] not steady with no LOB. Pt fatigues and needs rest. Wheelchair Training Does the Pt Use a Wheelchair?: No Stair Training Stair Training: Handrails/: 2 handrails Stairs (FIM): 5 #of Steps: 12 1 Step (curb) (QC): 5 4 Steps (QC): 5 12 Steps (QC): 5 Stairs: Pattern: Reciprocal Level of Assist: 5 Exercises Seated Therapy Exercises: Ankle pumps, Long arc quads, Hip flexion, Kicking activity Standing: Hip Abduction, Hamstring curls, Heel/toe raises, Mini squats Standing Reps: 20 Treatments Pt transfers at SBA using FWW. Pt ambulates using FWW at A. Pt completes Seated and Standing Ex at //bars to increase strength and activity tolerance. Pt completes 12 stairs to practice for discharge next week. Pt returns to room to rest at end of tx with all needs met. Assessment Current Status: Good Progress Pt is increasing her activity tolerance as well as safety and independence with activity. PT Short Term Goals Short Term Goals Time Frame: Jun 09, 2016 Gait (FIM): 4 Gait Distance Comment: 200' Gait Level of Assist: 4 (CGA) Gait Assistive Device: FWW PT Prison Goals Prison Goals PT Prison Goals Time Frame: Jun 23, 2016 Transfers (B,C,W/C) (FIM): 5 Sit to Lying (QC): 6 Lying-Sitting on Side/Bed(QC): 6 Sit to Stand (QC): 4 Rollin Roll Left to Right (QC): 6 Car Transfer (QC): 4 Does the Patient Walk: Yes Gait (FIM): 5 Distance: 300' Walk 10 feet (QC): 4 Walk 10ft-Uneven Surface(QC): 4 Walk 50ft with 2 Turns (QC): 4 Walk 150 ft (QC): 4 Gait Level of Assist: 5 Gait Assistive Device: FWW Stairs (FIM): 2 # of Steps: 8 1 Step (curb) (QC): 4 4 Steps (QC): 4 12 Steps (QC): 88 Stairs Level Of Assist: 4 (CGA) Picking up an Object (QC): 88 PT Plan Problem List Problem List: Activity Tolerance, Functional Strength, Gait Treatment/Plan Treatment Plan: Continue Plan of Care Treatment Plan: Bed Mobility, Education, Functional Activity Lio, Functional Strength, Group Therapy, Gait, Safety, Therapeutic Exercise, Transfers Treatment Duration: Jun 23, 2016 Visits Per Week: 10-11 Minutes/Day (M-F): 60-90 Minutes/Day (Sat/Braun): 15-30 Safety Risks/Education Patient Education: Gait Training, Transfer Techniques, Correct Positioning, Safety Issues Teaching Recipient: Patient Teaching Methods: Discussion Response to Teaching: Verbalize Understanding Time/GCodes Time In: 915 Time Out: 1000 Total Billed Treatment Time: 45 Total Billed Treatment visit, GT (15m), & EX X2 (30m) RUBI KEATING FISCAL ACCOUNTING CLERK Jun 12, 2016 10:01
--- NOTE | 2016-06-12 11:13 | Occupational Ther Daily Note ---
OT Current Status-Daily Note Subjective Pt alert, sitting in chair. Pt agreed to therapy. No c/o pain at this time. Mental Status/Objective Patient Orientation: Person, Place, Time, Situation Functional [place] Measure 0=Not Assessed/NA 4=Minimal Assistance 1=Total Assistance 5=Supervision or Setup 2=Maximal Assistance 6=Modified [place] 3=Moderate Assistance 7=Complete [place] ADL-Treatment Pt used FWW with supervision to retrieve clothes from closet. Verbal cues to remember underclothes. Pt then transported clothes to bathroom. Functional [place] Measure 0=Not Assessed/NA 4=Minimal Assistance 1=Total Assistance 5=Supervision or Setup 2=Maximal Assistance 6=Modified [place] 3=Moderate Assistance 7=Complete IndependenceIRFPAI Quality Coding Scale 6 Independent with activity with or without an assistive device 5 Patient requires set up or clean up by helper. Patient completes activity by themselves 4 Supervision or touching assist (CGA). [place] provide cues , steadying assist 3 The helper provides less than half the effort to complete the activity 2 The helper provides more than half the effort to complete the activity 1 Dependent. The helper does all the effort to complete an activity 7 Patient refused to complete or attempt activity 9 The patient did not perform the activity before the current illness or injury 88 Not attempted due to Medical conditions or safety concerns Grooming (FIM): 6 (Standing at sink with FWW, pt is able to complete own grooming skills.) Bathing (FIM): 5 (Supervision. Using shower bench, grabbars pt is able to bathe self.) Upper Body (FIM): 6 (Pt is able to don/doff upper body clothing by self.) Lower Body Dressing (FIM): 5 (Supervision. Pt needs reminder to sit and don/ doff pants over feet. Pt is able to complete lower body dressing.) Transfers (B, C, W/C) (FIM): 6 (Using FWW with stand pivot transfers) Toilet/Commode Transfer (FIM): 6 (Using FWW and grabbars, pt is able to complete) Shower Transfer(FIM): 5 (Using shower bench and grabbars pt able to transfer with supervision.) Other Treatment Pt ambulated to therapy gym with supervision using FWW. Arm bike completed 15 min duration at 25 arce resistance, 1 verbal cue to keep R hand insurance sales assistant on handle , to increase strength and activity tolerance for daily functional tasks. Pt ambulated back to room with supervision using FWW. After therapy, pt lying in bed with daughter present in room. Call light/phone in reach. All needs met in room. OT Short Term Goals Short Term Goals Time Frame: Jun 09, 2016 Grooming(FIM): 5 Lower Body Dressing(FIM): 5 Toileting(FIM): 5 1=Demonstrate adherence to instructed precautions during ADL tasks. 2=Patient will verbalize/demonstrate understanding of assistive devices/ modifications for ADL. 3=Patient will improve strength/tolerance for activity to enable patient to perform ADL's. OT Data Analyst Report Writer Goals Data Analyst Report Writer Goals Time Frame: Jun 27, 2016 Eating (FIM): 6 Eating (QC): 6 Groomin Oral Hygiene (QC): 6 Bathing(FIM): 5 Shower/Bathe Self (QC): 5 Upper Body Dressing(FIM): 6 Upper Body Dressing (QC): 6 Lower Body Dressing(FIM): 6 Lower Body Dressing (QC): 6 On/Off Footwear (QC): 6 Toileting(FIM): 6 Toileting Hygiene (QC): 6 Transfers (B,C,W/C) (FIM): 6 Toilet/Commode Transfer(FIM): 6 Toilet/Commode Transfer (QC): 6 Shower Transfer(FIM): 5 Comprehension(FIM): 3 Expression (FIM): 5 Social Interaction(FIM): 5 Problem Solving(FIM): 3 Memory(FIM): 3 Additional Goals: 2-Verbalize Understanding, 3-ImproveStrength/Lio (and coordination) 1=Demonstrate adherence to instructed precautions during ADL tasks. 2=Patient will verbalize/demonstrate understanding of assistive devices/ modifications for ADL. 3=Patient will improve strength/tolerance for activity to enable patient to perform ADL's. OT Education/Plan Discharge Recommendations Plan/Recommendations: Continue POC Treatment Plan/Plan of Care Patient would benefit from OT for education, treatment and training to promote independence in ADL's, mobility, safety and/or upper extremity function for ADL' s. Plan of Care: ADL Retraining, Cognitive Retraining, Functional Mobility, Group Exercise/Act as Ind (educaiton, exercise, communication, activity tolerance, socialization), UE Funct Exercise/Act, UE Neuromus Re-Ed/Coord, Visual/ Perceptual Retrain Treatment Duration: Jun 27, 2016 Visits Per Week: 10-11 Minutes/Day (M-F): 75-90 Minutes/Day (Sat/Braun): PRN Agreement: Yes Rehab Potential: Guarded Time/GCodes Start Time: 10:00 Stop Time: 11:00 Total Time Billed (hr/min): 60 Billed Treatment Time 1 visit-ADL 3 (45 min) EX 1 (15 min) SABRINA ROWLAND Jun 12, 2016 11:13
--- NOTE | 2016-06-12 15:10 | Physical Therapy Daily Note ---
PT Daily Note-Current Subjective Pt laying supine in bed visiting with daughter upon arrival. Pt agrees to PT. Pain Location: Right, Left Location Body Site: Hip Pain Description: Tightness Mental Status Patient Orientation: Person, Place, Situation Transfers Functional [place] Measure 0=Not Assessed/NA 4=Minimal Assistance 1=Total Assistance 5=Supervision or Setup 2=Maximal Assistance 6=Modified [place] 3=Moderate Assistance 7=Complete IndependenceIRFPAI Quality Coding Scale 6 Independent with activity with or without an assistive device 5 Patient requires set up or clean up by helper. Patient completes activity by themselves 4 Supervision or touching assist (CGA). [place] provide cues , steadying assist 3 The helper provides less than half the effort to complete the activity 2 The helper provides more than half the effort to complete the activity 1 Dependent. The helper does all the effort to complete an activity 7 Patient refused to complete or attempt activity 9 The patient did not perform the activity before the current illness or injury 88 Not attempted due to Medical conditions or safety concerns Transfers (B, C, W/C) (FIM): 5 Scootin Rollin Roll Left to Right (QC): 6 Supine to/from Sit: 6 Sit to/from Stand: 5 Sit to Lying (QC): 5 Sit to Stand (QC): 5 Weight Bearing Weight Bearing Restriction: Full Weight Bearing Location Restriction: LE Bilateral Gait Training Does the Patient Walk?: Yes Gait (FIM): 5 Distance (FIM): 3=150 ft Distance: 350' Walk 10 feet (QC): 5 Walk 50 ft with 2 Turns(QC): 5 Walk 150 ft (QC): 5 Gait Level of Assist: 5 Gait Persons Needed: 1 Gait Assistive Device: FWW Pt fatigues after ambulation. Pt walks with slow but steady [place] and no LOB. Wheelchair Training Does the Pt Use a Wheelchair?: No Treatments Pt transfers using FWW at SBA. Pt ambulates using FWW at SBA. Pt uses restroom before leaving room for tx. Pt completes Standing EX at //bars to increase strength and balance for safety of ambulation and activity tolerance. Pt returns to room to rest in bed at end of tx with all needs met. Assessment Current Status: Good Progress Pt is improving with activity tolerance and balance. PT Short Term Goals Short Term Goals Time Frame: Jun 09, 2016 Gait (FIM): 4 Gait Distance Comment: 200' Gait Level of Assist: 4 (CGA) Gait Assistive Device: FWW PT Snf Goals Supercalender Operator Goals PT Snf Goals Time Frame: Jun 23, 2016 Transfers (B,C,W/C) (FIM): 5 Sit to Lying (QC): 6 Lying-Sitting on Side/Bed(QC): 6 Sit to Stand (QC): 4 Rollin Roll Left to Right (QC): 6 Car Transfer (QC): 4 Does the Patient Walk: Yes Gait (FIM): 5 Distance: 300' Walk 10 feet (QC): 4 Walk 10ft-Uneven Surface(QC): 4 Walk 50ft with 2 Turns (QC): 4 Walk 150 ft (QC): 4 Gait Level of Assist: 5 Gait Assistive Device: FWW Stairs (FIM): 2 # of Steps: 8 1 Step (curb) (QC): 4 4 Steps (QC): 4 12 Steps (QC): 88 Stairs Level Of Assist: 4 (CGA) Picking up an Object (QC): 88 PT Plan Problem List Problem List: Activity Tolerance, Functional Strength, Safety, Balance, Gait Treatment/Plan Treatment Plan: Continue Plan of Care Treatment Plan: Bed Mobility, Education, Functional Activity Lio, Functional Strength, Group Therapy, Gait, Safety, Therapeutic Exercise, Transfers Treatment Duration: Jun 23, 2016 Visits Per Week: 10-11 Minutes/Day (M-F): 60-90 Minutes/Day (Sat/Braun): 15-30 Safety Risks/Education Patient Education: Gait Training, Transfer Techniques, Correct Positioning, Safety Issues Teaching Recipient: Patient Teaching Methods: Discussion Response to Teaching: Verbalize Understanding Time/GCodes Time In: 1300 Time Out: 1330 Total Billed Treatment Time: 30 Total Billed Treatment visit, FA (15m) & EX (15m) RUBI KEATING PTA Jun 12, 2016 15:10
[2016-06-12 18:00] VITALS: BP 115/59
[2016-06-12] MEDS: ATORVASTATIN 80 MG (LIPITOR) TABLET PO SCH (20:12)
[2016-06-13 05:03] VITALS: BP 124/69
[2016-06-13] MEDS: GLIMEPIRIDE 2 MG (AMARYL) TAB PO SCH ×2 (06:02→16:55)
--- NOTE | 2016-06-13 07:47 | Progress Note (SOAP) ---
Subjective Subjective/Events-last exam stroke. Patient continues with speech and improving. Thought process better Objective Exam Vital Signs Date Time Temp Pulse Resp B/P Pulse Ox O2 Delivery O2 Flow Rate FiO2 06/13/16 05:03 97.0 73 16 124/69 94 Room Air 06/12/16 21:19 Room Air 06/12/16 18:00 97.1 63 17 115/59 94 Room Air 06/12/16 09:00 Room Air I & O 06/13/16 07:00 Intake Total 1200 ml Balance 1200 ml Capillary Refill : General Appearance: No Apparent Distress WD/WN Results Lab Laboratory Tests 06/12/16 11:13: Glucometer 159H 06/12/16 16:38: Glucometer 167H 06/12/16 20:38: Glucometer 172H 06/13/16 04:29: Glucometer 103 Microbiology 06/03/16 Urine Culture - Final, Complete Enterococcus Faecalis Probable Actinomyces Assessment/Plan Assessment/Plan Assess & Plan/Chief Complaint CVA. Confusion. History of pneumonia. Hypertension. Multiple lung nodules. Diabetes. . CVA. Confusion is less. History of pneumonia. Hypertension. Multiple lung nodules. Patient improving since seen yesterday. . 06/05. CVA. Confusion much better. History of pneumonia. Diabetes. Patient communicating better. Patient doesn't know her address where she lives. But she can write if. . 06/06/16. CVA. Patient still does not know her address at home. History of pneumonia. Diabetes. . 06/09/16. Stroke. Patient speaking better. Patient has improved area Patient can now verbalize home address. . 06/10/16. infection finished. CVA. Confusion better. Patient speaking better. . 06/11/16. CVA. Confusion better . History of pneumonia. Hypertension. Multiple lung nodules. Patient improving with speech and thought process. . 06/12/16. CVA. Confusion improving. History of pneumonia. Hypertension. Multiple lung nodules. Diabetes. Patient smiling and positive and working hard. . CVA. Infusion better. History of pneumonia. Hypertension. Patient continues to improve. Diabetes. Clinical Quality Measures DVT/VTE Risk/Contraindication: Risk Factor Score Per Nursin RFS Level Per Nursing on Admit: 4+=Very High LALO HERRERA DO Jun 13, 2016 07:47
[2016-06-13] MEDS: ASPIRIN E.C. 325 MG (ECOTRIN) TABLET PO SCH (08:35)
[2016-06-13] MEDS: NICOTINE PATCH REMOVAL TP SCH (08:35)
[2016-06-13] MEDS: CLOPIDOGREL 75 MG (PLAVIX) TABLET PO SCH (08:35)
[2016-06-13] MEDS: lisINopril 5 MG (PRINIVIL) TABLET PO SCH (08:35)
[2016-06-13] MEDS: PROPRANOLOL 20 MG (INDERAL) TABLET PO SCH (08:35)
[2016-06-13] MEDS: ALPRAZolam 0.25 MG (XANAX) TAB PO SCH ×2 (08:35→20:48)
[2016-06-13] MEDS: NICOTINE 14 MG (NICODERM) PATCH TD SCH (08:35)
--- NOTE | 2016-06-13 09:36 | PM & R (SOAP) Progress Note ---
Subjective Subjective/Events-last exam Patient was seen in her room this AM Patient SBA for transfers Sppech improving for intelligibilty and ability to answer questions in a more direct manner. Objective Exam Last Set of Vital Signs Vital Signs Date Time Temp Pulse Resp B/P Pulse Ox O2 Delivery O2 Flow Rate FiO2 06/13/16 08:38 Room Air 06/13/16 05:03 97.0 73 16 124/69 94 Capillary Refill : I&O Intake and Output 06/13/16 00:00 Intake Total 1200 ml Balance 1200 ml Intake Oral 1200 ml # Voids 5 # Bowel Movements 1 General: Alert, Cooperative, No Acute Distress HEENT: Atraumatic, PERRLA, EOMI, Mucous Memb Moist/[place], Other (Aphasia and Dysphagia) Neck: Supple, No JVD, Other (left CEA site healing well no drainage) Lungs: Clear to Auscultation Heart: Regular Rate Abdomen: Normal Bowel Sounds, Soft, No Tenderness Extremities: No Edema Neuro: Other (Mild rt sided weakness and dyscoordination as well as aphasia and dysphagia) Results Lab Laboratory Tests 06/10/16 11:03: Glucometer 142H 06/10/16 16:16: Glucometer 132H 06/10/16 20:15: Glucometer 184H 06/11/16 05:37: Glucometer 161H 06/11/16 11:20: Glucometer 138H 06/11/16 16:07: Glucometer 412*H 06/11/16 21:01: Glucometer 171H 06/12/16 04:40: Glucometer 130H 06/12/16 11:13: Glucometer 159H 06/12/16 16:38: Glucometer 167H 06/12/16 20:38: Glucometer 172H 06/13/16 04:29: Glucometer 103 Microbiology 06/03/16 Urine Culture - Final, Complete Enterococcus Faecalis Probable Actinomyces Assessment/Plan Assessment 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 Team Conference held 06/11/16-See report for full functional update and POC and INGE MORALES MD Jun 13, 2016 09:36
--- NOTE | 2016-06-13 10:26 | Physical Therapy Daily Note ---
PT Daily Note-Current Subjective Pt laying in bed upon arrival. Pt had wanted to go outside but when she looked out the window she decided it looked like rain so she decided to not go today. PT did agree to PT though. Pain Location: No Pain Reported Mental Status Patient Orientation: Person, Place, Situation Transfers Functional [place] Measure 0=Not Assessed/NA 4=Minimal Assistance 1=Total Assistance 5=Supervision or Setup 2=Maximal Assistance 6=Modified [place] 3=Moderate Assistance 7=Complete IndependenceIRFPAI Quality Coding Scale 6 Independent with activity with or without an assistive device 5 Patient requires set up or clean up by helper. Patient completes activity by themselves 4 Supervision or touching assist (CGA). [place] provide cues , steadying assist 3 The helper provides less than half the effort to complete the activity 2 The helper provides more than half the effort to complete the activity 1 Dependent. The helper does all the effort to complete an activity 7 Patient refused to complete or attempt activity 9 The patient did not perform the activity before the current illness or injury 88 Not attempted due to Medical conditions or safety concerns Scootin Rollin Roll Left to Right (QC): 6 Supine to/from Sit: 6 Sit to/from Stand: 6 Sit to Stand (QC): 5 Weight Bearing Weight Bearing Restriction: Full Weight Bearing Location Restriction: LE Bilateral Gait Training Does the Patient Walk?: Yes Gait (FIM): 5 Distance (FIM): 3=150 ft Distance: 300' Walk 10 feet (QC): 5 Walk 50 ft with 2 Turns(QC): 5 Walk 150 ft (QC): 5 Gait Level of Assist: 5 Gait Persons Needed: 1 Gait Assistive Device: FWW Pt walks with a slight foot drag on R foot and R foot rubs against medial side of L foot as pt brings R foot through gait process. Pt encouraged to over exaggerate her step on R side while ambulating. Wheelchair Training Does the Pt Use a Wheelchair?: No Exercises Standing: Hip Abduction, Hamstring curls, Heel/toe raises, Mini squats Standing Reps: 20 Treatments Pt transfers using FWW at SBA. Pt ambulated using FWW at SBA. Pt used restroom during tx. Pt completed Standing EX at //bars to increase strength and balance. Pt returned to room to rest in recliner at end of tx. with all needs met. OT to arrive shortly. Assessment Current Status: Good Progress Pt continues to make progress with strength and balance although pt is still working with PT on normalizing gait due to foot drag and rubbing of R foot against medial side of L foot. PT Short Term Goals Short Term Goals Time Frame: Jun 09, 2016 Gait (FIM): 4 Gait Distance Comment: 200' Gait Level of Assist: 4 (CGA) Gait Assistive Device: FWW PT Skilled Nursing Goals Banquet Attendant Goals PT Banquet Attendant Goals Time Frame: Jun 23, 2016 Transfers (B,C,W/C) (FIM): 5 Sit to Lying (QC): 6 Lying-Sitting on Side/Bed(QC): 6 Sit to Stand (QC): 4 Rollin Roll Left to Right (QC): 6 Car Transfer (QC): 4 Does the Patient Walk: Yes Gait (FIM): 5 Distance: 300' Walk 10 feet (QC): 4 Walk 10ft-Uneven Surface(QC): 4 Walk 50ft with 2 Turns (QC): 4 Walk 150 ft (QC): 4 Gait Level of Assist: 5 Gait Assistive Device: FWW Stairs (FIM): 2 # of Steps: 8 1 Step (curb) (QC): 4 4 Steps (QC): 4 12 Steps (QC): 88 Stairs Level Of Assist: 4 (CGA) Picking up an Object (QC): 88 PT Plan Problem List Problem List: Activity Tolerance, Functional Strength, Gait Treatment/Plan Treatment Plan: Continue Plan of Care Treatment Plan: Bed Mobility, Education, Functional Activity Lio, Functional Strength, Group Therapy, Gait, Safety, Therapeutic Exercise, Transfers Treatment Duration: Jun 23, 2016 Visits Per Week: 10-11 Minutes/Day (M-F): 60-90 Minutes/Day (Sat/Braun): 15-30 Safety Risks/Education Patient Education: Gait Training, Transfer Techniques, Correct Positioning, Safety Issues Teaching Recipient: Patient Teaching Methods: Discussion Response to Teaching: Verbalize Understanding Time/GCodes Time In: 900 Time Out: 945 Total Billed Treatment Time: 45 Total Billed Treatment visit, EX (20m), FA (10m) & GT (15m) RUBI KEATING CEMETERY LABORER Jun 13, 2016 10:26
--- NOTE | 2016-06-13 11:04 | Occupational Ther Daily Note ---
OT Current Status-Daily Note Subjective Pt alert, sitting in chair. Pt agreed to therapy. No c/o pain. Mental Status/Objective Patient Orientation: Person, Place, Time, Situation Functional [place] Measure 0=Not Assessed/NA 4=Minimal Assistance 1=Total Assistance 5=Supervision or Setup 2=Maximal Assistance 6=Modified [place] 3=Moderate Assistance 7=Complete [place] ADL-Treatment Pt able to retrieve clothes from closet without LOB. Pt chose pants, shirt and sock then required verbal cue to retrieve underclothes. Functional [place] Measure 0=Not Assessed/NA 4=Minimal Assistance 1=Total Assistance 5=Supervision or Setup 2=Maximal Assistance 6=Modified [place] 3=Moderate Assistance 7=Complete IndependenceIRFPAI Quality Coding Scale 6 Independent with activity with or without an assistive device 5 Patient requires set up or clean up by helper. Patient completes activity by themselves 4 Supervision or touching assist (CGA). [place] provide cues , steadying assist 3 The helper provides less than half the effort to complete the activity 2 The helper provides more than half the effort to complete the activity 1 Dependent. The helper does all the effort to complete an activity 7 Patient refused to complete or attempt activity 9 The patient did not perform the activity before the current illness or injury 88 Not attempted due to Medical conditions or safety concerns Grooming (FIM): 6 (Standing at sink, pt is able to complete by self.) Bathing (FIM): 5 (Pt is able to complete all bathing by self, requires cues to turn on shower. Shower bench, grabbar and hand held shower used.) Upper Body (FIM): 6 (Safety concerns. Completes dressing by self.) Lower Body Dressing (FIM): 5 (Safety concerns. Completes dressing by self.) Toileting (FIM): 6 (Safety concerns. Completes toileting by self.) Transfers (B, C, W/C) (FIM): 5 (Safety concerns. Supervision with transfers.) Toilet/Commode Transfer (FIM): 6 (Using FWW and grabbars, pt is abl to complete transfer.) Shower Transfer(FIM): 5 (Using shower bench and grabbars pt is supervision with transfer. Safety concerns.) Pt made a list of ingredients to make spaghetti then attempted to sequence steps. Pt required verbal cues to sequence steps to make spaghetti, verbally. After therapy, pt lying in bed with call light/phone in reach and safety measures in place. All needs met in room. OT Short Term Goals Short Term Goals Time Frame: Jun 09, 2016 Grooming(FIM): 5 Lower Body Dressing(FIM): 5 Toileting(FIM): 5 1=Demonstrate adherence to instructed precautions during ADL tasks. 2=Patient will verbalize/demonstrate understanding of assistive devices/ modifications for ADL. 3=Patient will improve strength/tolerance for activity to enable patient to perform ADL's. OT Coning Machine Operator Goals Coning Machine Operator Goals Time Frame: Jun 27, 2016 Eating (FIM): 6 Eating (QC): 6 Groomin Oral Hygiene (QC): 6 Bathing(FIM): 5 Shower/Bathe Self (QC): 5 Upper Body Dressing(FIM): 6 Upper Body Dressing (QC): 6 Lower Body Dressing(FIM): 6 Lower Body Dressing (QC): 6 On/Off Footwear (QC): 6 Toileting(FIM): 6 Toileting Hygiene (QC): 6 Transfers (B,C,W/C) (FIM): 6 Toilet/Commode Transfer(FIM): 6 Toilet/Commode Transfer (QC): 6 Shower Transfer(FIM): 5 Comprehension(FIM): 3 Expression (FIM): 5 Social Interaction(FIM): 5 Problem Solving(FIM): 3 Memory(FIM): 3 Additional Goals: 2-Verbalize Understanding, 3-ImproveStrength/Lio (and coordination) 1=Demonstrate adherence to instructed precautions during ADL tasks. 2=Patient will verbalize/demonstrate understanding of assistive devices/ modifications for ADL. 3=Patient will improve strength/tolerance for activity to enable patient to perform ADL's. OT Education/Plan Discharge Recommendations Plan/Recommendations: Continue POC Treatment Plan/Plan of Care Patient would benefit from OT for education, treatment and training to promote independence in ADL's, mobility, safety and/or upper extremity function for ADL' s. Plan of Care: ADL Retraining, Cognitive Retraining, Functional Mobility, Group Exercise/Act as Ind (educaiton, exercise, communication, activity tolerance, socialization), UE Funct Exercise/Act, UE Neuromus Re-Ed/Coord, Visual/ Perceptual Retrain Treatment Duration: Jun 27, 2016 Visits Per Week: 10-11 Minutes/Day (M-F): 75-90 Minutes/Day (Sat/Braun): PRN Agreement: Yes Rehab Potential: Guarded Time/GCodes Start Time: 10:00 Stop Time: 11:00 Total Time Billed (hr/min): 60 Billed Treatment Time 1 visit-ADL 4 (60 min) SABRINA ROWLAND Jun 13, 2016 11:04
--- NOTE | 2016-06-13 11:35 | Speech Therapy Daily Note ---
Speech Daily Progress Note Subjective The patient was seated upright in bed upon entrance. The patient greeted the clinician appropriately and agreed to participate in the dysphagia treatment session on this date. Objective Dysphagia Exercises: The patient continues to demonstrate good accuracy with base of tongue, pharyngeal, and laryngeal exercises with one episode of direct modeling provided by the clinician. Diet Analysis: The patient was observed eating her morning breakfast which included biscuit, pears, cereal, eggs, and coffee (as well as, her morning medication). No signs/symptoms of aspiration were demonstrated with any consistency the patient consumed. The patient's vocal quality remained clear throughout her meal. Assessment Assessment Current Status: Good Progress Treatment Plan Continue Plan of Care Communication Comprehension: 3 Expression: 4 Social Cognition Social Interaction: 5 Problem Solvin Memory: 2 Speech Short Term Goals Short Term Goals Short Term Goals 1. The patient will tolerate trials of the least restrictive consistency without signs/symptoms of aspiration. MET 06/05/2016 2. The patient will demonstrate laryngeal, pharyngeal and base of tongue exercises with 80% accuracy, independently. PROGRESSING 3. The patient will demonstrate swallowing strategies with 90% accuracy, independently. PROGRESSING 4. The patient will state orientation information with 80% accuracy and moderate clinician verbal cueing. PROGRESSING 5. The patient will respond to simple yes/no questions with 80% accuracy and moderate clinician verbal cueing. MET 06/05/2016 6. The patient will follow simple, one-step commands with 80% accuracy and direct modeling. MET 06/05/2016 7. Patient will state the name of common items with 80% accuracy and mild clinician cueing. MET 06/05/2016 Time Frame-STG: Three Weeks Speech Automation Driver Goals Automation Driver Goals 1. The patient will tolerate the least restrictive diet without signs/symptoms of aspiration or laryngeal penetration. 2. The patient will demonstrate improved receptive language for increased function and safety with ADL's in the least restrictive environment. Time Frame: Four Weeks Comprehension: 3 Expression: 5 Social Interaction: 5 Problem Solvin Memory: 3 Speech-Plan Treatment Plan Speech Therapy Treatment Plan: Continue Plan of Care Continue skilled speech therapy to target receptive communication and dysphagia. Treatment Duration: Jul 01, 2016 # of days/week Five Visits Per Week: Ten. Minutes/Day (M-F): 60 Rehab Potential: Guarded Safety Risks/Education Teaching Recipient: Patient Teaching Methods: Demonstration, Handout, Discussion Response to Teaching: Verbalize Understanding, Return Demonstration, Reinforcement Needed Education Topics Provided: Dysphagia Exercises Time Speech Therapy Time In: 08:00 Speech Therapy Time Out: 09:00 Total Billed Time: 60 Billed Treatment Time 1, MICHELLE DE LA PAZ Jun 13, 2016 11:35
--- NOTE | 2016-06-13 14:41 | Physical Therapy Daily Note ---
PT Daily Note-Current Subjective Pt supine in bed with head raised coloring upon arrival. Pt agrees to PT. Pain Location: No Pain Reported Mental Status Patient Orientation: Person, Place, Situation Transfers Functional [place] Measure 0=Not Assessed/NA 4=Minimal Assistance 1=Total Assistance 5=Supervision or Setup 2=Maximal Assistance 6=Modified [place] 3=Moderate Assistance 7=Complete IndependenceIRFPAI Quality Coding Scale 6 Independent with activity with or without an assistive device 5 Patient requires set up or clean up by helper. Patient completes activity by themselves 4 Supervision or touching assist (CGA). [place] provide cues , steadying assist 3 The helper provides less than half the effort to complete the activity 2 The helper provides more than half the effort to complete the activity 1 Dependent. The helper does all the effort to complete an activity 7 Patient refused to complete or attempt activity 9 The patient did not perform the activity before the current illness or injury 88 Not attempted due to Medical conditions or safety concerns Transfers (B, C, W/C) (FIM): 5 Scootin Rollin Roll Left to Right (QC): 6 Supine to/from Sit: 6 Sit to/from Stand: 5 Sit to Lying (QC): 5 Sit to Stand (QC): 5 Weight Bearing Weight Bearing Restriction: Full Weight Bearing Location Restriction: LE Bilateral Gait Training Does the Patient Walk?: Yes Gait (FIM): 5 Distance (FIM): 3=150 ft Distance: 250' Walk 10 feet (QC): 5 Walk 50 ft with 2 Turns(QC): 5 Walk 150 ft (QC): 5 Gait Level of Assist: 5 Gait Assistive Device: FWW Pt has slow but steady [place] with no LOB. PT emphasized normalizing gait. Pt will over exaggerate bringing R foot up to avoid foot drag. Pt rubs medial R foot on medial L foot during gait. Wheelchair Training Does the Pt Use a Wheelchair?: No Stair Training Stair Training: Handrails/: 2 handrails #of Steps: 8 1 Step (curb) (QC): 5 4 Steps (QC): 5 Stairs: Pattern: Step to Level of Assist: 5 Exercises NuStep Minutes: 10 NuStep Workload: 4 Treatments Pt transfers using FWW at A. Pt ambulates using FWW at [facility]. Pt completes 8 stairs and uses NuStep to work on strength, activity tolerance and balance in everyday activities. Assessment Current Status: Good Progress Pt is improving on cognitive awareness as well as independence with transfers and ambulation. PT Short Term Goals Short Term Goals Time Frame: Jun 09, 2016 Gait (FIM): 4 Gait Distance Comment: 200' Gait Level of Assist: 4 (CGA) Gait Assistive Device: FWW PT Hearing Aid Dispenser Goals Hearing Aid Dispenser Goals PT Half-Way Goals Time Frame: Jun 23, 2016 Transfers (B,C,W/C) (FIM): 5 Sit to Lying (QC): 6 Lying-Sitting on Side/Bed(QC): 6 Sit to Stand (QC): 4 Rollin Roll Left to Right (QC): 6 Car Transfer (QC): 4 Does the Patient Walk: Yes Gait (FIM): 5 Distance: 300' Walk 10 feet (QC): 4 Walk 10ft-Uneven Surface(QC): 4 Walk 50ft with 2 Turns (QC): 4 Walk 150 ft (QC): 4 Gait Level of Assist: 5 Gait Assistive Device: FWW Stairs (FIM): 2 # of Steps: 8 1 Step (curb) (QC): 4 4 Steps (QC): 4 12 Steps (QC): 88 Stairs Level Of Assist: 4 (CGA) Picking up an Object (QC): 88 PT Plan Problem List Problem List: Activity Tolerance, Functional Strength, Safety, Balance, Gait Treatment/Plan Treatment Plan: Continue Plan of Care Treatment Plan: Bed Mobility, Education, Functional Activity Lio, Functional Strength, Group Therapy, Gait, Safety, Therapeutic Exercise, Transfers Treatment Duration: Jun 23, 2016 Visits Per Week: 10-11 Minutes/Day (M-F): 60-90 Minutes/Day (Sat/Braun): 15-30 Safety Risks/Education Patient Education: Gait Training, Transfer Techniques, Correct Positioning, Safety Issues Teaching Recipient: Patient Teaching Methods: Discussion Response to Teaching: Verbalize Understanding Time/GCodes Time In: 1300 Time Out: 1330 Total Billed Treatment Time: 30 Total Billed Treatment visit, GT (15m) & EX (15m) RUBI KEATING PTA Jun 13, 2016 14:41
[2016-06-13 17:10] VITALS: BP 128/72
[2016-06-13] MEDS: ATORVASTATIN 80 MG (LIPITOR) TABLET PO SCH (20:48)
[2016-06-14 05:35] VITALS: BP 111/64
[2016-06-14] MEDS: GLIMEPIRIDE 2 MG (AMARYL) TAB PO SCH ×2 (06:41→16:14)
[2016-06-14] MEDS: NICOTINE PATCH REMOVAL TP SCH (08:35)
[2016-06-14] MEDS: NICOTINE 14 MG (NICODERM) PATCH TD SCH (08:35)
[2016-06-14] MEDS: ALPRAZolam 0.25 MG (XANAX) TAB PO SCH ×2 (08:36→20:31)
[2016-06-14] MEDS: PROPRANOLOL 20 MG (INDERAL) TABLET PO SCH (08:36)
[2016-06-14] MEDS: ASPIRIN E.C. 325 MG (ECOTRIN) TABLET PO SCH (08:36)
[2016-06-14] MEDS: CLOPIDOGREL 75 MG (PLAVIX) TABLET PO SCH (08:36)
[2016-06-14] MEDS: lisINopril 5 MG (PRINIVIL) TABLET PO SCH (08:37)
--- NOTE | 2016-06-14 10:11 | Physical Therapy Daily Note ---
PT Daily Note-Current Subjective Pt. in bed and agrees to therapy. She has no c/o pain. Mental Status Patient Orientation: Person, Place Transfers Functional [place] Measure 0=Not Assessed/NA 4=Minimal Assistance 1=Total Assistance 5=Supervision or Setup 2=Maximal Assistance 6=Modified [place] 3=Moderate Assistance 7=Complete IndependenceIRFPAI Quality Coding Scale 6 Independent with activity with or without an assistive device 5 Patient requires set up or clean up by helper. Patient completes activity by themselves 4 Supervision or touching assist (CGA). [place] provide cues , steadying assist 3 The helper provides less than half the effort to complete the activity 2 The helper provides more than half the effort to complete the activity 1 Dependent. The helper does all the effort to complete an activity 7 Patient refused to complete or attempt activity 9 The patient did not perform the activity before the current illness or injury 88 Not attempted due to Medical conditions or safety concerns Transfers (B, C, W/C) (FIM): 5 Supine to/from Sit: 6 Sit to/from Stand: 5 Gait Training Does the Patient Walk?: Yes Gait (FIM): 5 Distance (FIM): 3=150 ft Distance: 200 ft Walk 150 ft (QC): 5 Gait Level of Assist: 5 Gait Persons Needed: 1 Gait Assistive Device: FWW Pt. needs skilled cues to stay close to walker and lift R foot while ambulating. Exercises Standing: Heel/toe raises, Marching, Side steps Standing Reps: 15 NuStep Minutes: 4 NuStep Workload: 7 Treatments gait training, exercise Assessment Current Status: Good Progress Pt. needs cues for improved safety with gait but overall she has no LOB. Good performance with exercises. Pt. seated at EOB post session with call light and all needs met. PT Short Term Goals Short Term Goals Time Frame: Jun 09, 2016 Gait (FIM): 4 Gait Distance Comment: 200' Gait Level of Assist: 4 (CGA) Gait Assistive Device: FWW PT Custodial Goals Custodial Goals PT Custodial Goals Time Frame: Jun 23, 2016 Transfers (B,C,W/C) (FIM): 5 Sit to Lying (QC): 6 Lying-Sitting on Side/Bed(QC): 6 Sit to Stand (QC): 4 Rollin Roll Left to Right (QC): 6 Car Transfer (QC): 4 Does the Patient Walk: Yes Gait (FIM): 5 Distance: 300' Walk 10 feet (QC): 4 Walk 10ft-Uneven Surface(QC): 4 Walk 50ft with 2 Turns (QC): 4 Walk 150 ft (QC): 4 Gait Level of Assist: 5 Gait Assistive Device: FWW Stairs (FIM): 2 # of Steps: 8 1 Step (curb) (QC): 4 4 Steps (QC): 4 12 Steps (QC): 88 Stairs Level Of Assist: 4 (CGA) Picking up an Object (QC): 88 PT Plan Treatment/Plan Treatment Plan: Continue Plan of Care Treatment Plan: Bed Mobility, Education, Functional Activity Lio, Functional Strength, Group Therapy, Gait, Safety, Therapeutic Exercise, Transfers Treatment Duration: Jun 23, 2016 Visits Per Week: 10-11 Minutes/Day (M-F): 60-90 Minutes/Day (Sat/Braun): 15-30 Time/GCodes Time In: 900 Time Out: 925 Total Billed Treatment Time: 25 Total Billed Treatment 1, GT 8', Ex 17' MUKUL FONTENOT PT Jun 14, 2016 10:11
[2016-06-14 18:15] VITALS: BP 113/70
[2016-06-14] MEDS: ATORVASTATIN 80 MG (LIPITOR) TABLET PO SCH (20:31)
[2016-06-15 06:00] VITALS: BP 116/67
[2016-06-15] MEDS: GLIMEPIRIDE 2 MG (AMARYL) TAB PO SCH ×2 (06:18→16:21)
[2016-06-15] MEDS: CLOPIDOGREL 75 MG (PLAVIX) TABLET PO SCH (08:06)
[2016-06-15] MEDS: NICOTINE PATCH REMOVAL TP SCH (08:06)
[2016-06-15] MEDS: PROPRANOLOL 20 MG (INDERAL) TABLET PO SCH (08:06)
[2016-06-15] MEDS: lisINopril 5 MG (PRINIVIL) TABLET PO SCH (08:06)
[2016-06-15] MEDS: ASPIRIN E.C. 325 MG (ECOTRIN) TABLET PO SCH (08:06)
[2016-06-15] MEDS: ALPRAZolam 0.25 MG (XANAX) TAB PO SCH ×2 (08:06→20:46)
[2016-06-15] MEDS: NICOTINE 14 MG (NICODERM) PATCH TD SCH (08:06)
[2016-06-15 08:14] VITALS: BP 104/61
[2016-06-15 17:49] VITALS: BP 110/57
[2016-06-15] MEDS: ATORVASTATIN 80 MG (LIPITOR) TABLET PO SCH (20:46)
[2016-06-16 05:23] VITALS: BP 102/64
[2016-06-16] MEDS: GLIMEPIRIDE 2 MG (AMARYL) TAB PO SCH ×2 (06:02→16:39)
[2016-06-16 08:28] VITALS: BP 160/72
[2016-06-16] MEDS: ALPRAZolam 0.25 MG (XANAX) TAB PO SCH ×2 (08:29→20:06)
[2016-06-16] MEDS: CLOPIDOGREL 75 MG (PLAVIX) TABLET PO SCH (08:29)
[2016-06-16] MEDS: lisINopril 5 MG (PRINIVIL) TABLET PO SCH (08:29)
[2016-06-16] MEDS: ASPIRIN E.C. 325 MG (ECOTRIN) TABLET PO SCH (08:29)
[2016-06-16] MEDS: PROPRANOLOL 20 MG (INDERAL) TABLET PO SCH (08:29)
[2016-06-16] MEDS: NICOTINE 14 MG (NICODERM) PATCH TD SCH (08:30)
--- NOTE | 2016-06-16 08:31 | Progress Note (SOAP) ---
Subjective Subjective/Events-last exam stroke affecting speech and thought process. Patient is improving. Patient talking better Objective Exam Vital Signs Date Time Temp Pulse Resp B/P Pulse Ox O2 Delivery O2 Flow Rate FiO2 06/16/16 08:28 71 160/72 06/16/16 05:23 97.6 67 18 102/64 96 Room Air 06/15/16 20:58 Room Air 06/15/16 17:49 98.8 64 18 110/57 94 Room Air 06/15/16 09:48 Room Air I & O 06/16/16 07:00 Intake Total 1230 ml Balance 1230 ml Capillary Refill : General Appearance: No Apparent Distress WD/WN HEENT: Normal ENT Inspection Neck: Full Range of Motion Normal Inspection Results Lab Laboratory Tests 06/15/16 11:01: Glucometer 143H 06/15/16 16:21: Glucometer 164H 06/15/16 20:44: Glucometer 169H 06/16/16 05:13: Glucometer 141H Microbiology 06/03/16 Urine Culture - Final, Complete Enterococcus Faecalis Probable Actinomyces Assessment/Plan Assessment/Plan Assess & Plan/Chief Complaint CVA. Confusion. History of pneumonia. Hypertension. Multiple lung nodules. Diabetes. . CVA. Confusion is less. History of pneumonia. Hypertension. Multiple lung nodules. Patient improving since seen yesterday. . 06/05. CVA. Confusion much better. History of pneumonia. Diabetes. Patient communicating better. Patient doesn't know her address where she lives. But she can write if. . 06/06/16. CVA. Patient still does not know her address at home. History of pneumonia. Diabetes. . 06/09/16. Stroke. Patient speaking better. Patient has improved area Patient can now verbalize home address. . 06/10/16. infection finished. CVA. Confusion better. Patient speaking better. . 06/11/16. CVA. Confusion better . History of pneumonia. Hypertension. Multiple lung nodules. Patient improving with speech and thought process. . 06/12/16. CVA. Confusion improving. History of pneumonia. Hypertension. Multiple lung nodules. Diabetes. Patient smiling and positive and working hard. . CVA. Infusion better. History of pneumonia. Hypertension. Patient continues to improve. Diabetes.. . 06/16/17. CVA. Confusion. History of pneumonia. Hypertension. Patient speaking better. Patient is thought processes is more consistent Clinical Quality Measures DVT/VTE Risk/Contraindication: Risk Factor Score Per Nursin RFS Level Per Nursing on Admit: 4+=Very High LALO HERRERA DO Jun 16, 2016 08:31
[2016-06-16] MEDS: NICOTINE PATCH REMOVAL TP SCH (08:34)
--- NOTE | 2016-06-16 11:00 | Physical Therapy Daily Note ---
PT Daily Note-Current Subjective Pt supine in bed upon arrival. Pt agrees to PT. Pain Location: No Pain Reported Mental Status Patient Orientation: Person, Place, Situation Transfers Functional [place] Measure 0=Not Assessed/NA 4=Minimal Assistance 1=Total Assistance 5=Supervision or Setup 2=Maximal Assistance 6=Modified [place] 3=Moderate Assistance 7=Complete IndependenceIRFPAI Quality Coding Scale 6 Independent with activity with or without an assistive device 5 Patient requires set up or clean up by helper. Patient completes activity by themselves 4 Supervision or touching assist (CGA). [place] provide cues , steadying assist 3 The helper provides less than half the effort to complete the activity 2 The helper provides more than half the effort to complete the activity 1 Dependent. The helper does all the effort to complete an activity 7 Patient refused to complete or attempt activity 9 The patient did not perform the activity before the current illness or injury 88 Not attempted due to Medical conditions or safety concerns Transfers (B, C, W/C) (FIM): 6 Scootin Rollin Roll Left to Right (QC): 6 Supine to/from Sit: 6 Sit to/from Stand: 6 Sit to Stand (QC): 6 Weight Bearing Weight Bearing Restriction: Full Weight Bearing Location Restriction: LE Bilateral Gait Training Does the Patient Walk?: Yes Gait (FIM): 6 Distance (FIM): 3=150 ft Distance: 350' Walk 10 feet (QC): 6 Walk 50 ft with 2 Turns(QC): 6 Walk 150 ft (QC): 6 Gait Level of Assist: 6 Gait Persons Needed: 1 Gait Assistive Device: FWW Pt walks with slow but steady [place], no LOB. PT continues to work with pt to try to increase DF during gait so R toes don't drag when ambulating. Pt also continues to incidentally rub R medial foot on L medial foot. Wheelchair Training Does the Pt Use a Wheelchair?: No Exercises Seated Therapy Exercises: Ankle pumps, Long arc quads, Hip flexion, Kicking activity Seated Reps: 20 (2 sets with red Tband for resistance) Treatments Pt transfers at Mod I using FWW. Pt ambulates using FWW at Mod I with occasional VC for increased DF with gait. Pt works on Seated Ex in chair using Red Tband for increased resistance to strengthen for DF especially. Pt ambulated back to room to rest at end of tx with all needs met. Assessment Current Status: Good Progress Pt continues to attempt increasing DF during gait although cannot maintain due to weakness and some cognitive deficits. Pt is motivated and tries to improve on tasks given to discharge later this week. PT Short Term Goals Short Term Goals Time Frame: Jun 09, 2016 Gait (FIM): 4 Gait Distance Comment: 200' Gait Level of Assist: 4 (CGA) Gait Assistive Device: FWW PT Prison Goals Medical Intern Goals PT Prison Goals Time Frame: Jun 23, 2016 Transfers (B,C,W/C) (FIM): 5 Sit to Lying (QC): 6 Lying-Sitting on Side/Bed(QC): 6 Sit to Stand (QC): 4 Rollin Roll Left to Right (QC): 6 Car Transfer (QC): 4 Does the Patient Walk: Yes Gait (FIM): 5 Distance: 300' Walk 10 feet (QC): 4 Walk 10ft-Uneven Surface(QC): 4 Walk 50ft with 2 Turns (QC): 4 Walk 150 ft (QC): 4 Gait Level of Assist: 5 Gait Assistive Device: FWW Stairs (FIM): 2 # of Steps: 8 1 Step (curb) (QC): 4 4 Steps (QC): 4 12 Steps (QC): 88 Stairs Level Of Assist: 4 (CGA) Picking up an Object (QC): 88 PT Plan Problem List Problem List: Activity Tolerance, Functional Strength, Gait Treatment/Plan Treatment Plan: Continue Plan of Care Treatment Plan: Bed Mobility, Education, Functional Activity Lio, Functional Strength, Group Therapy, Gait, Safety, Therapeutic Exercise, Transfers Treatment Duration: Jun 23, 2016 Visits Per Week: 10-11 Minutes/Day (M-F): 60-90 Minutes/Day (Sat/Braun): 15-30 Safety Risks/Education Patient Education: Gait Training, Correct Positioning, Safety Issues Teaching Recipient: Patient Teaching Methods: Demonstration, Discussion Response to Teaching: Verbalize Understanding Time/GCodes Time In: 1015 Time Out: 1100 Total Billed Treatment Time: 45 Total Billed Treatment visit, EX (20m) & GT X2 (25m) RUBI KEATING PTA Jun 16, 2016 11:00
--- NOTE | 2016-06-16 11:59 | Speech Therapy Daily Note ---
Speech Daily Progress Note Subjective The patient was seated upright in bed upon entrance. The patient greeted the clinician appropriately and agreed to participate in the speech and language therapy session on this date. Objective Word-Finding: As the patient continues to demonstrate mild, intermittent difficulty with word-finding, word-finding activities were completed on this date. The patient was asked to provide ten words associated with a specific word the clinician provided her. The patient demonstrated fair to good accuracy with this task, requiring mild clinician verbal cueing, however, displaying 80% accuracy. Additionally, the patient was provided a specific category and initial letter. The patient was asked to provide a word that began with the provided letter and "fit into" the category. The patient demonstrated 80% accuracy with this task with mild clinician verbal cueing. Assessment Assessment Current Status: Good Progress Treatment Plan Continue Plan of Care Communication Comprehension: 4 Expression: 5 Social Cognition Social Interaction: 5 Problem Solvin Memory: 3 Speech Short Term Goals Short Term Goals Short Term Goals 1. The patient will tolerate trials of the least restrictive consistency without signs/symptoms of aspiration. MET 06/05/2016 2. The patient will demonstrate laryngeal, pharyngeal and base of tongue exercises with 80% accuracy, independently. PROGRESSING 3. The patient will demonstrate swallowing strategies with 90% accuracy, independently. PROGRESSING 4. The patient will state orientation information with 80% accuracy and moderate clinician verbal cueing. PROGRESSING 5. The patient will respond to simple yes/no questions with 80% accuracy and moderate clinician verbal cueing. MET 06/05/2016 6. The patient will follow simple, one-step commands with 80% accuracy and direct modeling. MET 06/05/2016 7. Patient will state the name of common items with 80% accuracy and mild clinician cueing. MET 06/05/2016 Time Frame-STG: Three Weeks Speech Detention Goals Director Facilities Maintenance Goals 1. The patient will tolerate the least restrictive diet without signs/symptoms of aspiration or laryngeal penetration. 2. The patient will demonstrate improved receptive language for increased function and safety with ADL's in the least restrictive environment. Time Frame: Four Weeks Comprehension: 3 Expression: 5 Social Interaction: 5 Problem Solvin Memory: 3 Speech-Plan Treatment Plan Speech Therapy Treatment Plan: Continue Plan of Care Continue skilled speech therapy to target functional receptive language skills. Treatment Duration: Jul 01, 2016 # of days/week Five Visits Per Week: Ten. Minutes/Day (M-F): 60 Rehab Potential: Guarded Safety Risks/Education Teaching Recipient: Patient Teaching Methods: Discussion Response to Teaching: Verbalize Understanding, Return Demonstration, Reinforcement Needed Education Topics Provided: Word-Finding Strategies Time Speech Therapy Time In: 08:15 Speech Therapy Time Out: 09:15 Total Billed Time: 60 Billed Treatment Time 1, MICHELLE FRANCOIS Jun 16, 2016 11:59
--- NOTE | 2016-06-16 13:58 | Occupational Ther Daily Note ---
OT Current Status-Daily Note Subjective Pt alert, sitting up in bed. Pt agreed to therapy. No c/o pain. Mental Status/Objective Patient Orientation: Person, Place, Time, Situation Functional [place] Measure 0=Not Assessed/NA 4=Minimal Assistance 1=Total Assistance 5=Supervision or Setup 2=Maximal Assistance 6=Modified [place] 3=Moderate Assistance 7=Complete [place] ADL-Treatment Functional [place] Measure 0=Not Assessed/NA 4=Minimal Assistance 1=Total Assistance 5=Supervision or Setup 2=Maximal Assistance 6=Modified [place] 3=Moderate Assistance 7=Complete IndependenceIRFPAI Quality Coding Scale 6 Independent with activity with or without an assistive device 5 Patient requires set up or clean up by helper. Patient completes activity by themselves 4 Supervision or touching assist (CGA). [place] provide cues , steadying assist 3 The helper provides less than half the effort to complete the activity 2 The helper provides more than half the effort to complete the activity 1 Dependent. The helper does all the effort to complete an activity 7 Patient refused to complete or attempt activity 9 The patient did not perform the activity before the current illness or injury 88 Not attempted due to Medical conditions or safety concerns Eating (FIM): 6 (Dentures. Pt able to open packages/containers. Uses regular utensils to feed self.) Grooming (FIM): 6 (Standing at sink, pt is able to complete own grooming skills.) Bathing (FIM): 5 (Supervision for all bathing/drying using shower bench, hand held shower and grabbars.) Upper Body (FIM): 5 (Using FWW, pt is able to retrieve own clothes and don/ doff upper body clothing by self.) Lower Body Dressing (FIM): 5 (Using FWW, pt is able to retrieve own clothes and don/doff upper body clothing by self) Toileting (FIM): 6 (Using grabbars and FWW, pt is able to complete own toileting by self.) Transfers (B, C, W/C) (FIM): 5 (Using FWW, pt is able to complete transfers with supervision.) Toilet/Commode Transfer (FIM): 6 (Using FWW and grabbars, pt is able to complete, safety concerns.) Shower Transfer(FIM): 5 (Supervision using grabbars and shower bench, pt is able to complete transfer) Pt has demonstrated ability to complete each skill by self. Due to inconsistent sequencing skills when performing daily functional tasks there is a safety concern. After therapy, pt sitting in recliner with call light/phone in reach. All needs met in room. OT Short Term Goals Short Term Goals Time Frame: Jun 09, 2016 Grooming(FIM): 5 Lower Body Dressing(FIM): 5 Toileting(FIM): 5 1=Demonstrate adherence to instructed precautions during ADL tasks. 2=Patient will verbalize/demonstrate understanding of assistive devices/ modifications for ADL. 3=Patient will improve strength/tolerance for activity to enable patient to perform ADL's. OT Fruit Or Nut Picker Goals Fruit Or Nut Picker Goals Time Frame: Jun 27, 2016 Eating (FIM): 6 Eating (QC): 6 Groomin Oral Hygiene (QC): 6 Bathing(FIM): 5 Shower/Bathe Self (QC): 5 Upper Body Dressing(FIM): 6 Upper Body Dressing (QC): 6 Lower Body Dressing(FIM): 6 Lower Body Dressing (QC): 6 On/Off Footwear (QC): 6 Toileting(FIM): 6 Toileting Hygiene (QC): 6 Transfers (B,C,W/C) (FIM): 6 Toilet/Commode Transfer(FIM): 6 Toilet/Commode Transfer (QC): 6 Shower Transfer(FIM): 5 Comprehension(FIM): 3 Expression (FIM): 5 Social Interaction(FIM): 5 Problem Solving(FIM): 3 Memory(FIM): 3 Additional Goals: 2-Verbalize Understanding, 3-ImproveStrength/Lio (and coordination) 1=Demonstrate adherence to instructed precautions during ADL tasks. 2=Patient will verbalize/demonstrate understanding of assistive devices/ modifications for ADL. 3=Patient will improve strength/tolerance for activity to enable patient to perform ADL's. OT Education/Plan Discharge Recommendations Plan/Recommendations: Continue POC Treatment Plan/Plan of Care Patient would benefit from OT for education, treatment and training to promote independence in ADL's, mobility, safety and/or upper extremity function for ADL' s. Plan of Care: ADL Retraining, Cognitive Retraining, Functional Mobility, Group Exercise/Act as Ind (educaiton, exercise, communication, activity tolerance, socialization), UE Funct Exercise/Act, UE Neuromus Re-Ed/Coord, Visual/ Perceptual Retrain Treatment Duration: Jun 27, 2016 Visits Per Week: 10-11 Minutes/Day (M-F): 75-90 Minutes/Day (Sat/Braun): PRN Agreement: Yes Rehab Potential: Guarded Time/GCodes Start Time: 11:00 Stop Time: 12:00 Total Time Billed (hr/min): 60 Billed Treatment Time 1 visit-ADL 2 (30 min) FA 2 (30 min) SABRINA ROWLAND Jun 16, 2016 13:58
--- NOTE | 2016-06-16 14:07 | Occupational Ther Daily Note ---
OT Current Status-Daily Note Subjective Pt alert, lying in bed. Pt agreed to therapy. No c/o pain. Mental Status/Objective Patient Orientation: Person, Place, Time, Situation Functional [place] Measure 0=Not Assessed/NA 4=Minimal Assistance 1=Total Assistance 5=Supervision or Setup 2=Maximal Assistance 6=Modified [place] 3=Moderate Assistance 7=Complete [place] ADL-Treatment Functional [place] Measure 0=Not Assessed/NA 4=Minimal Assistance 1=Total Assistance 5=Supervision or Setup 2=Maximal Assistance 6=Modified [place] 3=Moderate Assistance 7=Complete IndependenceIRFPAI Quality Coding Scale 6 Independent with activity with or without an assistive device 5 Patient requires set up or clean up by helper. Patient completes activity by themselves 4 Supervision or touching assist (CGA). [place] provide cues , steadying assist 3 The helper provides less than half the effort to complete the activity 2 The helper provides more than half the effort to complete the activity 1 Dependent. The helper does all the effort to complete an activity 7 Patient refused to complete or attempt activity 9 The patient did not perform the activity before the current illness or injury 88 Not attempted due to Medical conditions or safety concerns Other Treatment Pt was given a destination in the hospital to find. Pt ambulated with FWW to find destination then come back to room. Pt was able to problem solve where to go then use environmental signs to find correct destination. Pt was able to retrain 2-3 step directions to get back to room without verbal cues using problem solving strategies. Pt required 2 breaks throughout treatment. After therapy, pt sitting on EOB with call light/phone in reach. All needs met in room. OT Short Term Goals Short Term Goals Time Frame: Jun 09, 2016 Grooming(FIM): 5 Lower Body Dressing(FIM): 5 Toileting(FIM): 5 1=Demonstrate adherence to instructed precautions during ADL tasks. 2=Patient will verbalize/demonstrate understanding of assistive devices/ modifications for ADL. 3=Patient will improve strength/tolerance for activity to enable patient to perform ADL's. OT Intern Architect Goals Intern Architect Goals Time Frame: Jun 27, 2016 Eating (FIM): 6 Eating (QC): 6 Groomin Oral Hygiene (QC): 6 Bathing(FIM): 5 Shower/Bathe Self (QC): 5 Upper Body Dressing(FIM): 6 Upper Body Dressing (QC): 6 Lower Body Dressing(FIM): 6 Lower Body Dressing (QC): 6 On/Off Footwear (QC): 6 Toileting(FIM): 6 Toileting Hygiene (QC): 6 Transfers (B,C,W/C) (FIM): 6 Toilet/Commode Transfer(FIM): 6 Toilet/Commode Transfer (QC): 6 Shower Transfer(FIM): 5 Comprehension(FIM): 3 Expression (FIM): 5 Social Interaction(FIM): 5 Problem Solving(FIM): 3 Memory(FIM): 3 Additional Goals: 2-Verbalize Understanding, 3-ImproveStrength/Lio (and coordination) 1=Demonstrate adherence to instructed precautions during ADL tasks. 2=Patient will verbalize/demonstrate understanding of assistive devices/ modifications for ADL. 3=Patient will improve strength/tolerance for activity to enable patient to perform ADL's. OT Education/Plan Discharge Recommendations Plan/Recommendations: Continue POC Treatment Plan/Plan of Care Patient would benefit from OT for education, treatment and training to promote independence in ADL's, mobility, safety and/or upper extremity function for ADL' s. Plan of Care: ADL Retraining, Cognitive Retraining, Functional Mobility, Group Exercise/Act as Ind (educaiton, exercise, communication, activity tolerance, socialization), UE Funct Exercise/Act, UE Neuromus Re-Ed/Coord, Visual/ Perceptual Retrain Treatment Duration: Jun 27, 2016 Visits Per Week: 10-11 Minutes/Day (M-F): 75-90 Minutes/Day (Sat/Braun): PRN Agreement: Yes Rehab Potential: Guarded Time/GCodes Start Time: 13:30 Stop Time: 13:45 Total Time Billed (hr/min): 15 Billed Treatment Time 1 visit-FA 1 (15 min) SABRINA ROWLAND Jun 16, 2016 14:07
[2016-06-16 18:12] VITALS: BP 121/63
--- NOTE | 2016-06-16 19:10 | PM & R (SOAP) Progress Note ---
Subjective Subjective/Events-last exam Patient was seen in her room this evening.,Patient Modified Independent for transfers.Sppech improving Objective Exam Last Set of Vital Signs Vital Signs Date Time Temp Pulse Resp B/P Pulse Ox O2 Delivery O2 Flow Rate FiO2 06/16/16 18:12 98.2 69 18 121/63 96 Room Air Capillary Refill : I&O Intake and Output 06/16/16 00:00 Intake Total 1080 ml Balance 1080 ml Intake Oral 1080 ml # Voids 4 # Bowel Movements 1 General: Alert, Cooperative, No Acute Distress HEENT: Atraumatic, PERRLA, EOMI, Mucous Memb Moist/[place], Other (Aphasia and Dysphagia) Neck: Supple, No JVD, Other (left CEA site healing well no drainage) Lungs: Clear to Auscultation Heart: Regular Rate Abdomen: Normal Bowel Sounds, Soft, No Tenderness Extremities: No Edema Neuro: Other (Mild rt sided weakness and dyscoordination as well as aphasia and dysphagia) Results Lab Laboratory Tests 06/13/16 20:48: Glucometer 167H 06/14/16 05:56: Glucometer 121H 06/14/16 11:00: Glucometer 197H 06/14/16 16:15: Glucometer 151H 06/14/16 20:39: Glucometer 242H 06/15/16 06:15: Glucometer 133H 06/15/16 11:01: Glucometer 143H 06/15/16 16:21: Glucometer 164H 06/15/16 20:44: Glucometer 169H 06/16/16 05:13: Glucometer 141H 06/16/16 11:25: Glucometer 171H 06/16/16 16:38: Glucometer 128H Microbiology 06/03/16 Urine Culture - Final, Complete Enterococcus Faecalis Probable Actinomyces Assessment/Plan Assessment 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 Discuss POC and ELOS with staff tomorrow INGE MILLER MD Jun 16, 2016 19:10
[2016-06-16] MEDS: ATORVASTATIN 80 MG (LIPITOR) TABLET PO SCH (20:06)
[2016-06-17 05:46] VITALS: BP 111/53
[2016-06-17] MEDS: GLIMEPIRIDE 2 MG (AMARYL) TAB PO SCH ×2 (06:05→16:11)
[2016-06-17] MEDS: NICOTINE PATCH REMOVAL TP SCH (07:54)
[2016-06-17] MEDS: NICOTINE 14 MG (NICODERM) PATCH TD SCH (07:56)
[2016-06-17] MEDS: CLOPIDOGREL 75 MG (PLAVIX) TABLET PO SCH (07:56)
[2016-06-17] MEDS: lisINopril 5 MG (PRINIVIL) TABLET PO SCH (07:57)
[2016-06-17] MEDS: PROPRANOLOL 20 MG (INDERAL) TABLET PO SCH (07:57)
[2016-06-17] MEDS: ASPIRIN E.C. 325 MG (ECOTRIN) TABLET PO SCH (07:57)
[2016-06-17] MEDS: ALPRAZolam 0.25 MG (XANAX) TAB PO SCH ×2 (07:57→20:42)
--- NOTE | 2016-06-17 07:58 | Occupational Ther Daily Note ---
OT Current Status-Daily Note Subjective Pt sleeping in bed, woke easily to name. Pt agreed to therapy. No c/o pain. Mental Status/Objective Patient Orientation: Person, Place, Time, Situation Functional [place] Measure 0=Not Assessed/NA 4=Minimal Assistance 1=Total Assistance 5=Supervision or Setup 2=Maximal Assistance 6=Modified [place] 3=Moderate Assistance 7=Complete [place] ADL-Treatment Functional [place] Measure 0=Not Assessed/NA 4=Minimal Assistance 1=Total Assistance 5=Supervision or Setup 2=Maximal Assistance 6=Modified [place] 3=Moderate Assistance 7=Complete IndependenceIRFPAI Quality Coding Scale 6 Independent with activity with or without an assistive device 5 Patient requires set up or clean up by helper. Patient completes activity by themselves 4 Supervision or touching assist (CGA). [place] provide cues , steadying assist 3 The helper provides less than half the effort to complete the activity 2 The helper provides more than half the effort to complete the activity 1 Dependent. The helper does all the effort to complete an activity 7 Patient refused to complete or attempt activity 9 The patient did not perform the activity before the current illness or injury 88 Not attempted due to Medical conditions or safety concerns Eating (FIM): 6 (Dentures. Pt is able to set self up and use regular utensils to feed self.) Eating (QC): 6 (Dentures. Pt is able to set self up and use regular utensils to feed self.) Grooming (FIM): 6 (Standing at sink with FWW, pt is able to complete grooming skills.) Oral Hygiene (QC): 6 (Standing at sink with FWW, pt is able to complete oral hygiene.) Bathing (FIM): 6 (Using shower bench, hand held shower and grabbars pt is able to complete bathing and drying. Safety concerns.) Bathing Location: L Arm, R Arm, L Upper Leg, R Upper Leg, L Lower Leg ( including foot), R Lower Leg (including foot), Chest, Abdomen, Buttocks, Perineal Area Shower/Bathe Self (QC): 6 (Using shower bench, hand held shower and grabbars pt is able to complete bathing and drying. Safety concerns.) Upper Body (FIM): 6 (Retrieves clothes from closet then transports to bathroom. Pt dons/doff upper body by self.) Upper Body Dressing (QC): 6 (Retrieves clothes from closet then transports to bathroom. Pt dons/doff upper body by self.) Lower Body Dressing (FIM): 6 (Retrieves clothing from closet then transports to bathroom. Dons/doffs clothing by self. Safety concerns.) Lower Body Dressing (QC): 6 (Retrieves clothes from closet then transports to bathroom. Pt dons/doff upper body by self.) On/Off Footwear (QC): 6 (Pt able to complete by self) Toileting (FIM): 6 (Using grabbars pt is able to complete by self.) Toileting Hygiene (QC): 6 (Using grabbars pt is able to complete by self.) Transfers (B, C, W/C) (FIM): 6 (Using FWW, pt is able to complete by self. Safety concerns) Toilet/Commode Transfer (FIM): 6 (Using FWW and grabbars, pt is able to complete by self. Safety concerns) Toilet Transfer (QC): 6 (Using FWW and grabbars, pt is able to complete by self. Safety concerns) Shower Transfer(FIM): 6 (Using FWW, grabbars and shower bench, pt is able to complete by self. Safety concerns) No LOB noted throughout ADLs. Pt does complete skills by self. Safety concerns due to inconsistent problem solving skills. After therapy, pt lying in bed with call light/phone in reach. All needs met in room. OT Short Term Goals Short Term Goals Time Frame: Jun 09, 2016 Grooming(FIM): 5 Lower Body Dressing(FIM): 5 Toileting(FIM): 5 1=Demonstrate adherence to instructed precautions during ADL tasks. 2=Patient will verbalize/demonstrate understanding of assistive devices/ modifications for ADL. 3=Patient will improve strength/tolerance for activity to enable patient to perform ADL's. OT Half-Way Goals Assistant Professor Of Marine Biology Goals Time Frame: Jun 27, 2016 Eating (FIM): 6 (Met-06/17/16) Eating (QC): 6 (Met-06/17/16) Groomin (Met-06/17/16) Oral Hygiene (QC): 6 (Met-06/17/16) Bathing(FIM): 5 (Met-06/17/16) Shower/Bathe Self (QC): 5 (Met-06/17/16) Upper Body Dressing(FIM): 6 (Met-06/17/16) Upper Body Dressing (QC): 6 (Met-06/17/16) Lower Body Dressing(FIM): 6 (Met-06/17/16) Lower Body Dressing (QC): 6 (Met-06/17/16) On/Off Footwear (QC): 6 (Met-06/17/16) Toileting(FIM): 6 (Met-06/17/16) Toileting Hygiene (QC): 6 (Met-06/17/16) Transfers (B,C,W/C) (FIM): 6 (Met-06/17/16) Toilet/Commode Transfer(FIM): 6 (Met-06/17/16) Toilet/Commode Transfer (QC): 6 (Met-06/17/16) Shower Transfer(FIM): 5 (Met-06/17/16) Comprehension(FIM): 3 Expression (FIM): 5 Social Interaction(FIM): 5 Problem Solving(FIM): 3 Memory(FIM): 3 Additional Goals: 2-Verbalize Understanding, 3-ImproveStrength/Lio (and coordination) 1=Demonstrate adherence to instructed precautions during ADL tasks. 2=Patient will verbalize/demonstrate understanding of assistive devices/ modifications for ADL. 3=Patient will improve strength/tolerance for activity to enable patient to perform ADL's. OT Education/Plan Discharge Recommendations Plan/Recommendations: Continue POC Treatment Plan/Plan of Care Patient would benefit from OT for education, treatment and training to promote independence in ADL's, mobility, safety and/or upper extremity function for ADL' s. Plan of Care: ADL Retraining, Cognitive Retraining, Functional Mobility, Group Exercise/Act as Ind (educaiton, exercise, communication, activity tolerance, socialization), UE Funct Exercise/Act, UE Neuromus Re-Ed/Coord, Visual/ Perceptual Retrain Treatment Duration: Jun 27, 2016 Visits Per Week: 10-11 Minutes/Day (M-F): 75-90 Minutes/Day (Sat/Braun): PRN Agreement: Yes Rehab Potential: Guarded Time/GCodes Start Time: 07:15 Stop Time: 07:45 Total Time Billed (hr/min): 30 Billed Treatment Time 1 visit-ADL 2 (30 min) SABRINA ROWLAND Jun 17, 2016 07:58
--- NOTE | 2016-06-17 08:51 | Progress Note (SOAP) ---
Subjective Subjective/Events-last exam CVA. Patient continues to improve. Patient work in progress Objective Exam Vital Signs Date Time Temp Pulse Resp B/P Pulse Ox O2 Delivery O2 Flow Rate FiO2 06/17/16 05:46 98.4 57 16 111/53 97 Room Air 06/16/16 20:15 Room Air 06/16/16 18:12 98.2 69 18 121/63 96 Room Air 06/16/16 09:24 Room Air I & O 06/17/16 07:00 Intake Total 1250 ml Balance 1250 ml Capillary Refill : General Appearance: No Apparent Distress WD/WN Results Lab Laboratory Tests 06/16/16 11:25: Glucometer 171H 06/16/16 16:38: Glucometer 128H 06/16/16 20:06: Glucometer 211H 06/17/16 05:34: Glucometer 135H Microbiology 06/03/16 Urine Culture - Final, Complete Enterococcus Faecalis Probable Actinomyces Assessment/Plan Assessment/Plan Assess & Plan/Chief Complaint CVA. Confusion. History of pneumonia. Hypertension. Multiple lung nodules. Diabetes. . CVA. Confusion is less. History of pneumonia. Hypertension. Multiple lung nodules. Patient improving since seen yesterday. . 06/05. CVA. Confusion much better. History of pneumonia. Diabetes. Patient communicating better. Patient doesn't know her address where she lives. But she can write if. . 06/06/16. CVA. Patient still does not know her address at home. History of pneumonia. Diabetes. . 06/09/16. Stroke. Patient speaking better. Patient has improved area Patient can now verbalize home address. . 06/10/16. infection finished. CVA. Confusion better. Patient speaking better. . 06/11/16. CVA. Confusion better . History of pneumonia. Hypertension. Multiple lung nodules. Patient improving with speech and thought process. . 06/12/16. CVA. Confusion improving. History of pneumonia. Hypertension. Multiple lung nodules. Diabetes. Patient smiling and positive and working hard. . CVA. Infusion better. History of pneumonia. Hypertension. Patient continues to improve. Diabetes.. . 06/16/17. CVA. Confusion. History of pneumonia. Hypertension. Patient speaking better. Patient is thought processes is more consistent. . 06/17/16. CVA. Confusion. History of pneumonia. Hypertension. Patient continues to improve with speech Clinical Quality Measures DVT/VTE Risk/Contraindication: Risk Factor Score Per Nursin RFS Level Per Nursing on Admit: 4+=Very High LALO HERRERA DO Jun 17, 2016 08:51
--- NOTE | 2016-06-17 09:54 | Physical Therapy Daily Note ---
PT Daily Note-Current Subjective Pt supine in bed upon arrival. Pt agrees to PT. Pain Location: No Pain Reported Mental Status Patient Orientation: Person, Place, Situation Transfers Functional [place] Measure 0=Not Assessed/NA 4=Minimal Assistance 1=Total Assistance 5=Supervision or Setup 2=Maximal Assistance 6=Modified [place] 3=Moderate Assistance 7=Complete IndependenceIRFPAI Quality Coding Scale 6 Independent with activity with or without an assistive device 5 Patient requires set up or clean up by helper. Patient completes activity by themselves 4 Supervision or touching assist (CGA). [place] provide cues , steadying assist 3 The helper provides less than half the effort to complete the activity 2 The helper provides more than half the effort to complete the activity 1 Dependent. The helper does all the effort to complete an activity 7 Patient refused to complete or attempt activity 9 The patient did not perform the activity before the current illness or injury 88 Not attempted due to Medical conditions or safety concerns Transfers (B, C, W/C) (FIM): 6 Scootin Rollin Roll Left to Right (QC): 6 Supine to/from Sit: 6 Sit to/from Stand: 6 Sit to Lying (QC): 6 Sit to Stand (QC): 6 Chair/[id number] Xfer(QC): 6 Bed to/from Chair: 6 Car Transfer (QC): 6 Pt completed simulated car transfer in Therapy Gym. Weight Bearing Weight Bearing Restriction: Full Weight Bearing Location Restriction: LE Bilateral Gait Training Does the Patient Walk?: Yes Gait (FIM): 6 Distance (FIM): 3=150 ft Distance: 400' Walk 10 feet (QC): 6 Walk 50 ft with 2 Turns(QC): 6 Walk 150 ft (QC): 6 Walking 10ft/uneven surface-QC: 6 Gait Level of Assist: 6 Gait Persons Needed: 1 Gait Assistive Device: FWW Pt walks safely with no LOB although continues to have R foot drag during gait. R medial foot rubs L medial foot as it comes through to step down during gait as well. Pt is aware and attempts to self-correct although not consistent. Wheelchair Training Does the Pt Use a Wheelchair?: No Stair Training Stair Training: Handrails/: 2 handrails Stairs (FIM): 6 #of Steps: 12 1 Step (curb) (QC): 6 4 Steps (QC): 6 12 Steps (QC): 6 Stairs: Pattern: Step to Level of Assist: 6 Balance Picking up an Object (QC): 6 Special Test Comments Pt completes task with no LOB although lets go of FWW to belt picker object. PT redirects for safety. Treatments Pt transfers and completes bed mobility at Mod I. Pt ambulates using FWW at Mod I and occasional VC for correcting gait. Pt able to complete 12 stairs, walk over uneven surface for at least 10', 50' with 2 turns and belt picker object off floor safely at Mod I. Pt returns to room at end of tx. with all needs met. Assessment Current Status: Good Progress Pt has made improvements with independence of transfers and mobility due to increase in strength, balance and activity tolerance. Pt still has some weakness in DF in RLE which allows R foot to drag during ambulation. PT saw pt for 30m due to increased time with OT for cooking later in day. PT Short Term Goals Short Term Goals Time Frame: Jun 09, 2016 Gait (FIM): 4 Gait Distance Comment: 200' Gait Level of Assist: 4 (CGA) Gait Assistive Device: FWW PT Long-Term Goals Painting Supervisor Goals PT Long-Term Goals Time Frame: Jun 23, 2016 Transfers (B,C,W/C) (FIM): 5 Sit to Lying (QC): 6 Lying-Sitting on Side/Bed(QC): 6 Sit to Stand (QC): 4 Rollin Roll Left to Right (QC): 6 Car Transfer (QC): 4 Does the Patient Walk: Yes Gait (FIM): 5 Distance: 300' Walk 10 feet (QC): 4 Walk 10ft-Uneven Surface(QC): 4 Walk 50ft with 2 Turns (QC): 4 Walk 150 ft (QC): 4 Gait Level of Assist: 5 Gait Assistive Device: FWW Stairs (FIM): 2 # of Steps: 8 1 Step (curb) (QC): 4 4 Steps (QC): 4 12 Steps (QC): 88 Stairs Level Of Assist: 4 (CGA) Picking up an Object (QC): 88 PT Plan Problem List Problem List: Activity Tolerance, Gait Treatment/Plan Treatment Plan: Continue Plan of Care Treatment Plan: Bed Mobility, Education, Functional Activity Lio, Functional Strength, Group Therapy, Gait, Safety, Therapeutic Exercise, Transfers Treatment Duration: Jun 23, 2016 Visits Per Week: 10-11 Minutes/Day (M-F): 60-90 Minutes/Day (Sat/Braun): 15-30 Safety Risks/Education Patient Education: Gait Training, Transfer Techniques, Correct Positioning, Safety Issues Teaching Recipient: Patient Teaching Methods: Discussion Response to Teaching: Verbalize Understanding Time/GCodes Time In: 915 Time Out: 945 Total Billed Treatment Time: 30 Total Billed Treatment visit, GT (10m) & FA (20m) RBUI KEATING PTA Jun 17, 2016 09:54
--- NOTE | 2016-06-17 11:51 | Occupational Ther Daily Note ---
OT Current Status-Daily Note Subjective Pt alert, lying in bed. Pt agreed to therapy. No c/o pain at this time. Mental Status/Objective Functional [place] Measure 0=Not Assessed/NA 4=Minimal Assistance 1=Total Assistance 5=Supervision or Setup 2=Maximal Assistance 6=Modified [place] 3=Moderate Assistance 7=Complete [place] ADL-Treatment Functional [place] Measure 0=Not Assessed/NA 4=Minimal Assistance 1=Total Assistance 5=Supervision or Setup 2=Maximal Assistance 6=Modified [place] 3=Moderate Assistance 7=Complete IndependenceIRFPAI Quality Coding Scale 6 Independent with activity with or without an assistive device 5 Patient requires set up or clean up by helper. Patient completes activity by themselves 4 Supervision or touching assist (CGA). [place] provide cues , steadying assist 3 The helper provides less than half the effort to complete the activity 2 The helper provides more than half the effort to complete the activity 1 Dependent. The helper does all the effort to complete an activity 7 Patient refused to complete or attempt activity 9 The patient did not perform the activity before the current illness or injury 88 Not attempted due to Medical conditions or safety concerns Other Treatment Pt ambulated with FWW to [facility] kitchen. Pt retrieved ingredients for spaghetti out of refrigerator and placed on counter with SBA. Pt then used counter to move along with pots to fill with water then bring to stove. Pt then was able to open hamburger package with knife and place in skillet. Then chopped onions and green peppers standing at counter. Oven would not turn on so, pt cleaned up area and put ingredients in refrigerator for tomorrow. Then ambulated to therapy gym with FWW. Arm bike completed 15 min at 25 arce resistance to increase strength and activity tolerance for daily functional tasks, no breaks. Then pt was given 3 items to find throughout ARU area (EXIT sign, sign for 2nd floor rehab, microwave). Pt able to find microwave easily then needed cues to problem solve finding 2nd floor sign after finding this sign pt forgot the third item to find. Cues given, pt was able to find though was very frustrated that she forgot. Asked to restate the 3 items to find and pt could state EXIT and 2nd floor rehab, but unable to remember microwave. REED reviewed strategies for focusing and reminded pt it was okay to stop, take a breath and refocus when frustration increases. After therapy, pt sitting EOB with lunch. Call light/phone in reach. All needs met in room. OT Short Term Goals Short Term Goals Time Frame: Jun 09, 2016 Grooming(FIM): 5 Lower Body Dressing(FIM): 5 Toileting(FIM): 5 1=Demonstrate adherence to instructed precautions during ADL tasks. 2=Patient will verbalize/demonstrate understanding of assistive devices/ modifications for ADL. 3=Patient will improve strength/tolerance for activity to enable patient to perform ADL's. OT Stock Taker Goals Stock Taker Goals Time Frame: Jun 27, 2016 Eating (FIM): 6 (Met-06/17/16) Eating (QC): 6 (Met-06/17/16) Groomin (Met-06/17/16) Oral Hygiene (QC): 6 (Met-06/17/16) Bathing(FIM): 5 (Met-06/17/16) Shower/Bathe Self (QC): 5 (Met-06/17/16) Upper Body Dressing(FIM): 6 (Met-06/17/16) Upper Body Dressing (QC): 6 (Met-06/17/16) Lower Body Dressing(FIM): 6 (Met-06/17/16) Lower Body Dressing (QC): 6 (Met-06/17/16) On/Off Footwear (QC): 6 (Met-06/17/16) Toileting(FIM): 6 (Met-06/17/16) Toileting Hygiene (QC): 6 (Met-06/17/16) Transfers (B,C,W/C) (FIM): 6 (Met-06/17/16) Toilet/Commode Transfer(FIM): 6 (Met-06/17/16) Toilet/Commode Transfer (QC): 6 (Met-06/17/16) Shower Transfer(FIM): 5 (Met-06/17/16) Comprehension(FIM): 3 Expression (FIM): 5 Social Interaction(FIM): 5 Problem Solving(FIM): 3 Memory(FIM): 3 Additional Goals: 2-Verbalize Understanding, 3-ImproveStrength/Lio (and coordination) 1=Demonstrate adherence to instructed precautions during ADL tasks. 2=Patient will verbalize/demonstrate understanding of assistive devices/ modifications for ADL. 3=Patient will improve strength/tolerance for activity to enable patient to perform ADL's. OT Education/Plan Discharge Recommendations Plan/Recommendations: Continue POC Treatment Plan/Plan of Care Patient would benefit from OT for education, treatment and training to promote independence in ADL's, mobility, safety and/or upper extremity function for ADL' s. Plan of Care: ADL Retraining, Cognitive Retraining, Functional Mobility, Group Exercise/Act as Ind (educaiton, exercise, communication, activity tolerance, socialization), UE Funct Exercise/Act, UE Neuromus Re-Ed/Coord, Visual/ Perceptual Retrain Treatment Duration: Jun 27, 2016 Visits Per Week: 10-11 Minutes/Day (M-F): 75-90 Minutes/Day (Sat/Braun): PRN Agreement: Yes Rehab Potential: Guarded Time/GCodes Start Time: 10:45 Stop Time: 11:45 Total Time Billed (hr/min): 60 Billed Treatment Time 1 visit-FA 3 (45 min) EX 1 (15 min) SABRINA ROWLAND Jun 17, 2016 11:51
--- NOTE | 2016-06-17 12:46 | Speech Therapy Daily Note ---
Speech Daily Progress Note Subjective The patient was seated upright in bed upon entrance. The patient greeted the clinician appropriately and agreed to participate in the language session on this date. Objective Following Written Directions: The patient was able to read and follow written directions with 100% accuracy, independently. Word-Finding: The patient was asked to provide a synonym and antonym to a specific word provided by the clinician. The patient demonstrated 100% accuracy with mild clinician verbal cueing. Orientation: The patient was oriented to month, day, date, and year ( independently). Assessment Assessment Current Status: Good Progress Treatment Plan Continue Plan of Care Communication Comprehension: 4 Expression: 5 Social Cognition Social Interaction: 6 Problem Solvin Memory: 4 Speech Short Term Goals Short Term Goals Short Term Goals 1. The patient will tolerate trials of the least restrictive consistency without signs/symptoms of aspiration. MET 06/05/2016 2. The patient will demonstrate laryngeal, pharyngeal and base of tongue exercises with 80% accuracy, independently. PROGRESSING 3. The patient will demonstrate swallowing strategies with 90% accuracy, independently. PROGRESSING 4. The patient will state orientation information with 80% accuracy and moderate clinician verbal cueing. PROGRESSING 5. The patient will respond to simple yes/no questions with 80% accuracy and moderate clinician verbal cueing. MET 06/05/2016 6. The patient will follow simple, one-step commands with 80% accuracy and direct modeling. MET 06/05/2016 7. Patient will state the name of common items with 80% accuracy and mild clinician cueing. MET 06/05/2016 Time Frame-STG: Three Weeks Speech Barge Pilot Goals Senior Care Goals 1. The patient will tolerate the least restrictive diet without signs/symptoms of aspiration or laryngeal penetration. 2. The patient will demonstrate improved receptive language for increased function and safety with ADL's in the least restrictive environment. Time Frame: Four Weeks Comprehension: 3 Expression: 5 Social Interaction: 5 Problem Solvin Memory: 3 Speech-Plan Treatment Plan Speech Therapy Treatment Plan: Continue Plan of Care Continue skilled speech therapy to target receptive and expressive communication skills. Treatment Duration: Jul 01, 2016 # of days/week Five. Visits Per Week: Ten. Minutes/Day (M-F): 60 Rehab Potential: Guarded Safety Risks/Education Teaching Recipient: Patient Teaching Methods: Discussion Response to Teaching: Verbalize Understanding, Return Demonstration, Reinforcement Needed Education Topics Provided: Word-Finding Strategies Time Speech Therapy Time In: 08:15 Speech Therapy Time Out: 09:15 Total Billed Time: 60 Billed Treatment Time 1, MICHELLE FRANCOIS Jun 17, 2016 12:46
--- NOTE | 2016-06-17 14:51 | Physical Therapy Daily Note ---
PT Daily Note-Current Subjective Pt supine in bed upon arrival. Pt agrees to ambulation with PT for tx. Pain Location: No Pain Reported Mental Status Patient Orientation: Person, Place, Situation Transfers Functional [place] Measure 0=Not Assessed/NA 4=Minimal Assistance 1=Total Assistance 5=Supervision or Setup 2=Maximal Assistance 6=Modified [place] 3=Moderate Assistance 7=Complete IndependenceIRFPAI Quality Coding Scale 6 Independent with activity with or without an assistive device 5 Patient requires set up or clean up by helper. Patient completes activity by themselves 4 Supervision or touching assist (CGA). [place] provide cues , steadying assist 3 The helper provides less than half the effort to complete the activity 2 The helper provides more than half the effort to complete the activity 1 Dependent. The helper does all the effort to complete an activity 7 Patient refused to complete or attempt activity 9 The patient did not perform the activity before the current illness or injury 88 Not attempted due to Medical conditions or safety concerns Transfers (B, C, W/C) (FIM): 6 Scootin Rollin Roll Left to Right (QC): 6 Supine to/from Sit: 6 Sit to/from Stand: 6 Sit to Stand (QC): 6 Weight Bearing Weight Bearing Restriction: Full Weight Bearing Location Restriction: LE Bilateral Gait Training Does the Patient Walk?: Yes Gait (FIM): 6 Distance (FIM): 3=150 ft Distance: 200' Walk 10 feet (QC): 6 Walk 50 ft with 2 Turns(QC): 6 Walk 150 ft (QC): 6 Gait Level of Assist: 6 Gait Persons Needed: 1 Gait Assistive Device: FWW Pt is steady with no LOB and will self-correct with gait and try to increase DF in RLE. Wheelchair Training Does the Pt Use a Wheelchair?: No Treatments [place] [facility] [place] Pt amb[place] using [place] [facility] [place] Pt returns to room after ambulation to rest at EOB. Pt is left with all needs met at end of tx. Assessment Current Status: Good Progress Pt continues to make progress with transfers and mobility. PT Short Term Goals Short Term Goals Time Frame: Jun 09, 2016 Gait (FIM): 4 Gait Distance Comment: 200' Gait Level of Assist: 4 (CGA) Gait Assistive Device: FWW PT Outside Sales Representative Goals Half-Way Goals PT Outside Sales Representative Goals Time Frame: Jun 23, 2016 Transfers (B,C,W/C) (FIM): 5 Sit to Lying (QC): 6 Lying-Sitting on Side/Bed(QC): 6 Sit to Stand (QC): 4 Rollin Roll Left to Right (QC): 6 Car Transfer (QC): 4 Does the Patient Walk: Yes Gait (FIM): 5 Distance: 300' Walk 10 feet (QC): 4 Walk 10ft-Uneven Surface(QC): 4 Walk 50ft with 2 Turns (QC): 4 Walk 150 ft (QC): 4 Gait Level of Assist: 5 Gait Assistive Device: FWW Stairs (FIM): 2 # of Steps: 8 1 Step (curb) (QC): 4 4 Steps (QC): 4 12 Steps (QC): 88 Stairs Level Of Assist: 4 (CGA) Picking up an Object (QC): 88 PT Plan Problem List Problem List: Activity Tolerance, Functional Strength, Gait Treatment/Plan Treatment Plan: Continue Plan of Care Treatment Plan: Bed Mobility, Education, Functional Activity Lio, Functional Strength, Group Therapy, Gait, Safety, Therapeutic Exercise, Transfers Treatment Duration: Jun 23, 2016 Visits Per Week: 10-11 Minutes/Day (M-F): 60-90 Minutes/Day (Sat/Braun): 15-30 Safety Risks/Education Patient Education: Gait Training, Correct Positioning, Safety Issues Teaching Recipient: Patient Teaching Methods: Discussion Response to Teaching: Verbalize Understanding Time/GCodes Time In: 1400 Time Out: 1415 Total Billed Treatment Time: 15 Total Billed Treatment visit, GT (15m) RUBI KEATING PTA Jun 17, 2016 14:51
[2016-06-17 18:14] VITALS: BP 118/60
--- NOTE | 2016-06-17 19:35 | PM & R (SOAP) Progress Note ---
Subjective Subjective/Events-last exam Patient was seen in her room earlier today Patient Modified Independent for transfers Progressing well with therapies Objective Exam Last Set of Vital Signs Vital Signs Date Time Temp Pulse Resp B/P Pulse Ox O2 Delivery O2 Flow Rate FiO2 06/17/16 18:14 96.5 67 16 118/60 93 06/17/16 09:00 Room Air Capillary Refill : I&O Intake and Output 06/16/16 23:59 Intake Total 1150 ml Balance 1150 ml Intake Oral 1150 ml # Voids 5 General: Alert, Cooperative, No Acute Distress HEENT: Atraumatic, PERRLA, EOMI, Mucous Memb Moist/[place], Other (Aphasia and Dysphagia) Neck: Supple, No JVD, Other (left CEA site healing well no drainage) Lungs: Clear to Auscultation Heart: Regular Rate Abdomen: Normal Bowel Sounds, Soft, No Tenderness Extremities: No Edema Neuro: Other (Mild rt sided weakness and dyscoordination as well as aphasia and dysphagia) Results Lab Laboratory Tests 06/14/16 20:39: Glucometer 242H 06/15/16 06:15: Glucometer 133H 06/15/16 11:01: Glucometer 143H 06/15/16 16:21: Glucometer 164H 06/15/16 20:44: Glucometer 169H 06/16/16 05:13: Glucometer 141H 06/16/16 11:25: Glucometer 171H 06/16/16 16:38: Glucometer 128H 06/16/16 20:06: Glucometer 211H 06/17/16 05:34: Glucometer 135H 06/17/16 10:57: Glucometer 160H 06/17/16 15:58: Glucometer 165H Microbiology 06/03/16 Urine Culture - Final, Complete Enterococcus Faecalis Probable Actinomyces Assessment/Plan Assessment 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 Team Conference tomorrow Discharge set tentatively for 06/19/16 INGE MILLER MD Jun 17, 2016 19:35
[2016-06-17] MEDS: ATORVASTATIN 80 MG (LIPITOR) TABLET PO SCH (20:42)
[2016-06-18 05:29] VITALS: BP 115/64
[2016-06-18] MEDS: GLIMEPIRIDE 2 MG (AMARYL) TAB PO SCH ×2 (06:15→16:56)
[2016-06-18] MEDS: CLOPIDOGREL 75 MG (PLAVIX) TABLET PO SCH (08:01)
[2016-06-18] MEDS: ALPRAZolam 0.25 MG (XANAX) TAB PO SCH ×2 (08:01→20:36)
[2016-06-18] MEDS: PROPRANOLOL 20 MG (INDERAL) TABLET PO SCH (08:01)
[2016-06-18] MEDS: lisINopril 5 MG (PRINIVIL) TABLET PO SCH (08:01)
[2016-06-18] MEDS: ASPIRIN E.C. 325 MG (ECOTRIN) TABLET PO SCH (08:01)
[2016-06-18] MEDS: NICOTINE PATCH REMOVAL TP SCH (08:02)
[2016-06-18] MEDS: NICOTINE 14 MG (NICODERM) PATCH TD SCH (08:02)
--- NOTE | 2016-06-18 08:38 | Progress Note (SOAP) ---
Subjective Subjective/Events-last exam CVA. Patient talking better. Patient has improved much Objective Exam Vital Signs Date Time Temp Pulse Resp B/P (MAP) Pulse Ox O2 Delivery O2 Flow Rate FiO2 06/18/16 05:29 97.8 66 18 115/64 96 Room Air 06/17/16 20:20 Room Air 06/17/16 18:14 96.5 67 16 118/60 93 06/17/16 09:00 Room Air I & O 06/18/16 07:00 Intake Total 850 ml Balance 850 ml Capillary Refill : General Appearance: No Apparent Distress, WD/WN Results Lab Laboratory Tests 06/17/16 10:57: Glucometer 160H 06/17/16 15:58: Glucometer 165H 06/17/16 20:33: Glucometer 163H 06/18/16 06:14: Glucometer 119H Microbiology 06/03/16 Urine Culture - Final, Complete Enterococcus Faecalis Probable Actinomyces Assessment/Plan Assessment/Plan Assess & Plan/Chief Complaint CVA. Confusion. History of pneumonia. Hypertension. Multiple lung nodules. Diabetes. . CVA. Confusion is less. History of pneumonia. Hypertension. Multiple lung nodules. Patient improving since seen yesterday. . 06/05. CVA. Confusion much better. History of pneumonia. Diabetes. Patient communicating better. Patient doesn't know her address where she lives. But she can write if. . 06/06/16. CVA. Patient still does not know her address at home. History of pneumonia. Diabetes. . 06/09/16. Stroke. Patient speaking better. Patient has improved area Patient can now verbalize home address. . 06/10/16. infection finished. CVA. Confusion better. Patient speaking better. . 06/11/16. CVA. Confusion better . History of pneumonia. Hypertension. Multiple lung nodules. Patient improving with speech and thought process. . 06/12/16. CVA. Confusion improving. History of pneumonia. Hypertension. Multiple lung nodules. Diabetes. Patient smiling and positive and working hard. . CVA. Infusion better. History of pneumonia. Hypertension. Patient continues to improve. Diabetes.. . 06/16/17. CVA. Confusion. History of pneumonia. Hypertension. Patient speaking better. Patient is thought processes is more consistent. . 06/17/16. CVA. Confusion. History of pneumonia. Hypertension. Patient continues to improve with speech. . . CVA. Confusion resolved. Patient's thought processes better with speech Clinical Quality Measures DVT/VTE Risk/Contraindication: Risk Factor Score Per Nursin RFS Level Per Nursing on Admit: 4+=Very High LALO HERRERA DO Jun 18, 2016 08:38
--- NOTE | 2016-06-18 08:48 | PM & R (SOAP) Progress Note ---
Subjective Subjective/Events-last exam Patient was seen in her room this AM.Patient Modified Independent for transfers, Progressing well with therapies Objective Exam Last Set of Vital Signs Vital Signs Date Time Temp Pulse Resp B/P (MAP) Pulse Ox O2 Delivery O2 Flow Rate FiO2 06/18/16 05:29 97.8 66 18 115/64 96 Room Air Capillary Refill : I&O Intake and Output 06/18/16 00:00 Intake Total 1000 ml Balance 1000 ml Intake Oral 1000 ml # Voids 6 General: Alert, Cooperative, No Acute Distress HEENT: Atraumatic, PERRLA, EOMI, Mucous Memb Moist/[place], Other (Aphasia and Dysphagia) Neck: Supple, No JVD, Other (left CEA site healing well no drainage) Lungs: Clear to Auscultation Heart: Regular Rate Abdomen: Normal Bowel Sounds, Soft, No Tenderness Extremities: No Edema Neuro: Other (Mild rt sided weakness and dyscoordination as well as aphasia and dysphagia) Results Lab Laboratory Tests 06/15/16 11:01: Glucometer 143H 06/15/16 16:21: Glucometer 164H 06/15/16 20:44: Glucometer 169H 06/16/16 05:13: Glucometer 141H 06/16/16 11:25: Glucometer 171H 06/16/16 16:38: Glucometer 128H 06/16/16 20:06: Glucometer 211H 06/17/16 05:34: Glucometer 135H 06/17/16 10:57: Glucometer 160H 06/17/16 15:58: Glucometer 165H 06/17/16 20:33: Glucometer 163H 06/18/16 06:14: Glucometer 119H Microbiology 06/03/16 Urine Culture - Final, Complete Enterococcus Faecalis Probable Actinomyces Assessment/Plan Assessment 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 Team Conference later today-See report for full functional update and POC and Discharge remains set tentatively for tomorrow 06/19/16-Will confirm with SW/Staff INGE MILLER MD Jun 18, 2016 08:48
--- NOTE | 2016-06-18 09:42 | Speech Therapy Daily Note ---
Speech Daily Progress Note Subjective The patient was seated upright in bed upon entrance. The patient greeted the clinician appropriately and agreed to participate in the speech, language, and cognitive treatment session on this date. Objective As the patient is to discharge tomorrow (06/19/16), a re-assessment of cognitive function will be completed. The Mcdermitt Cognitive Assessment (Version Two) was provided with the below results: - Visuospatial/Executive Function: The patient demonstrated accuracy with cube copying and clock drawing. The patient was unable to complete trail-making. - Naming: The patient was able to name three of three black and white photographs. - Memory: The patient was able to recall five of five items immediately. The patient was able to recall two of five items with a category cue following a five minute time lapse. - Attention: The patient was able to name five digits in order and three digits in reverse order. The patient was able to complete serial seven subtraction. - Language: The patient was able to repeat short phrases. The patient continues to demonstrate reduced word-finding skills. - Orientation: The patient stated the month, day, place, and city. The patient required cues for the year and date. - The patient demonstrated a score of +21/30 which is an improvement from the prior week of +17/30. Assessment Assessment Current Status: Good Progress Treatment Plan Continue Plan of Care Communication Comprehension: 4 Expression: 5 Social Cognition Social Interaction: 6 Problem Solvin Memory: 4 Speech Short Term Goals Short Term Goals Short Term Goals 1. The patient will tolerate trials of the least restrictive consistency without signs/symptoms of aspiration. MET 06/05/2016 2. The patient will demonstrate laryngeal, pharyngeal and base of tongue exercises with 80% accuracy, independently. PROGRESSING 3. The patient will demonstrate swallowing strategies with 90% accuracy, independently. PROGRESSING 4. The patient will state orientation information with 80% accuracy and moderate clinician verbal cueing. PROGRESSING 5. The patient will respond to simple yes/no questions with 80% accuracy and moderate clinician verbal cueing. MET 06/05/2016 6. The patient will follow simple, one-step commands with 80% accuracy and direct modeling. MET 06/05/2016 7. Patient will state the name of common items with 80% accuracy and mild clinician cueing. MET 06/05/2016 Time Frame-STG: Three Weeks Speech Elevator Operator Freight Goals Elevator Operator Freight Goals 1. The patient will tolerate the least restrictive diet without signs/symptoms of aspiration or laryngeal penetration. 2. The patient will demonstrate improved receptive language for increased function and safety with ADL's in the least restrictive environment. Time Frame: Four Weeks Comprehension: 3 Expression: 5 Social Interaction: 5 Problem Solvin Memory: 3 Speech-Plan Treatment Plan Speech Therapy Treatment Plan: Continue Plan of Care Continue skilled speech therapy to target word-finding and receptive communication. Treatment Duration: Jul 01, 2016 # of days/week Five. Visits Per Week: Ten. Minutes/Day (M-F): 60 Rehab Potential: Guarded Safety Risks/Education Teaching Recipient: Patient Teaching Methods: Discussion Response to Teaching: Verbalize Understanding Education Topics Provided: Progress, Results Time Speech Therapy Time In: 08:15 Speech Therapy Time Out: 09:15 Total Billed Time: 60 Billed Treatment Time 1BAL[address] ST Jun 18, 2016 09:42
--- NOTE | 2016-06-18 12:07 | Physical Therapy Daily Note ---
PT Daily Note-Current Subjective Pt in restroom with nursing in room upon arrival. Pt is in pjs w/o socks on and pt wants to get dressed before leaving room for tx. Pt agrees to PT. Pain Location: No Pain Reported Mental Status Patient Orientation: Person, Place, Situation Transfers Functional [place] Measure 0=Not Assessed/NA 4=Minimal Assistance 1=Total Assistance 5=Supervision or Setup 2=Maximal Assistance 6=Modified [place] 3=Moderate Assistance 7=Complete IndependenceIRFPAI Quality Coding Scale 6 Independent with activity with or without an assistive device 5 Patient requires set up or clean up by helper. Patient completes activity by themselves 4 Supervision or touching assist (CGA). [place] provide cues , steadying assist 3 The helper provides less than half the effort to complete the activity 2 The helper provides more than half the effort to complete the activity 1 Dependent. The helper does all the effort to complete an activity 7 Patient refused to complete or attempt activity 9 The patient did not perform the activity before the current illness or injury 88 Not attempted due to Medical conditions or safety concerns Transfers (B, C, W/C) (FIM): 6 Scootin Sit to/from Stand: 6 Sit to Stand (QC): 6 Chair/Apy-io-Cmbyn Xfer(QC): 6 Bed to/from Chair: 6 Weight Bearing Weight Bearing Restriction: Full Weight Bearing Location Restriction: LE Bilateral Gait Training Does the Patient Walk?: Yes Gait (FIM): 6 Distance (FIM): 3=150 ft Distance: 350' Walk 10 feet (QC): 6 Walk 50 ft with 2 Turns(QC): 6 Walk 150 ft (QC): 6 Gait Level of Assist: 6 Gait Persons Needed: 1 Gait Assistive Device: FWW Pt walks with slow marina but steady with no LOB. Pt dressed with tennis shoes today and they seemed to help with foot positioning while walking so DF and medial feet rubbing were minimal. Wheelchair Training Does the Pt Use a Wheelchair?: No Stair Training Stair Training: Handrails/: 2 handrails Stairs (FIM): 6 #of Steps: 12 1 Step (curb) (QC): 6 4 Steps (QC): 6 12 Steps (QC): 6 Stairs: Pattern: Step to Level of Assist: 6 Treatments Pt changes clothes with no PT assistance. Pt transfers from EOB and chair using [place] [facility] [place]. PT ambulates using FWW at Mod I. Pt ambulates 12 stairs safely using 2 hand rails. Pt returns to room to rest at end of tx with all needs met. Assessment Current Status: Good Progress Pt improves with independence of transfers and ambulation especially with tennis shoes. PT Short Term Goals Short Term Goals Time Frame: Jun 09, 2016 Gait (FIM): 4 Gait Distance Comment: 200' Gait Level of Assist: 4 (CGA) Gait Assistive Device: FWW PT Heater Helper Goals Snf Goals PT Snf Goals Time Frame: Jun 23, 2016 Transfers (B,C,W/C) (FIM): 5 Sit to Lying (QC): 6 Lying-Sitting on Side/Bed(QC): 6 Sit to Stand (QC): 4 Rollin Roll Left to Right (QC): 6 Car Transfer (QC): 4 Does the Patient Walk: Yes Gait (FIM): 5 Distance: 300' Walk 10 feet (QC): 4 Walk 10ft-Uneven Surface(QC): 4 Walk 50ft with 2 Turns (QC): 4 Walk 150 ft (QC): 4 Gait Level of Assist: 5 Gait Assistive Device: FWW Stairs (FIM): 2 # of Steps: 8 1 Step (curb) (QC): 4 4 Steps (QC): 4 12 Steps (QC): 88 Stairs Level Of Assist: 4 (CGA) Picking up an Object (QC): 88 PT Plan Problem List Problem List: Activity Tolerance Treatment/Plan Treatment Plan: Continue Plan of Care Treatment Plan: Bed Mobility, Education, Functional Activity Lio, Functional Strength, Group Therapy, Gait, Safety, Therapeutic Exercise, Transfers Treatment Duration: Jun 23, 2016 Visits Per Week: 10-11 Minutes/Day (M-F): 60-90 Minutes/Day (Sat/Braun): 15-30 Safety Risks/Education Patient Education: Gait Training, Transfer Techniques, Correct Positioning, Safety Issues Teaching Recipient: Patient Teaching Methods: Discussion Response to Teaching: Verbalize Understanding Time/GCodes Time In: 915 Time Out: 1000 Total Billed Treatment Time: 45 Total Billed Treatment visit, GT (15m) & FA X2 (30m) RUBI KEATING PTA Jun 18, 2016 12:07
--- NOTE | 2016-06-18 13:24 | Occupational Ther Daily Note ---
OT Current Status-Daily Note Subjective Pt alert, lying in bed. Pt agreed to therapy. No c/o pain. Mental Status/Objective Patient Orientation: Person, Place Functional [place] Measure 0=Not Assessed/NA 4=Minimal Assistance 1=Total Assistance 5=Supervision or Setup 2=Maximal Assistance 6=Modified [place] 3=Moderate Assistance 7=Complete [place] ADL-Treatment Functional [place] Measure 0=Not Assessed/NA 4=Minimal Assistance 1=Total Assistance 5=Supervision or Setup 2=Maximal Assistance 6=Modified [place] 3=Moderate Assistance 7=Complete IndependenceIRFPAI Quality Coding Scale 6 Independent with activity with or without an assistive device 5 Patient requires set up or clean up by helper. Patient completes activity by themselves 4 Supervision or touching assist (CGA). [place] provide cues , steadying assist 3 The helper provides less than half the effort to complete the activity 2 The helper provides more than half the effort to complete the activity 1 Dependent. The helper does all the effort to complete an activity 7 Patient refused to complete or attempt activity 9 The patient did not perform the activity before the current illness or injury 88 Not attempted due to Medical conditions or safety concerns Other Treatment Pt ambulated with supervision using FWW to [facility] kitchen. Pt sat in chair and verbalized what she was going to do in the kitchen. Pt then retrieved items from refrigerator using FWW and placed on stove top. Pt verbalized each step, self strategy for memory, prior to completing. Pt took pot to sink using the countertop for support and filled with water for spaghetti then brought it back by sliding it along cabinet. Pt turned on appropriate burners and cooked hamburger and pasta at a low temperature for safety. Pt only required 1 cue after 30 min of cooking to focus on task. Pt had chair to sit in to take a break when needed. Pt aware of heating elements and continued to check if they were on or off. Pt was able to drain grease from hamburger in skillet by self. Pt demonstrated good safety throughout cooking. After therapy, pt sitting on EOB and was able to use regular utensils to eat spaghetti. Call light/phone in reach. All needs met in room. OT Short Term Goals Short Term Goals Time Frame: Jun 09, 2016 Grooming(FIM): 5 Lower Body Dressing(FIM): 5 Toileting(FIM): 5 1=Demonstrate adherence to instructed precautions during ADL tasks. 2=Patient will verbalize/demonstrate understanding of assistive devices/ modifications for ADL. 3=Patient will improve strength/tolerance for activity to enable patient to perform ADL's. OT Environmental Engineering Manager Goals Senior Living Goals Time Frame: Jun 27, 2016 Eating (FIM): 6 (Met-06/17/16) Eating (QC): 6 (Met-06/17/16) Groomin (Met-06/17/16) Oral Hygiene (QC): 6 (Met-06/17/16) Bathing(FIM): 5 (Met-06/17/16) Shower/Bathe Self (QC): 5 (Met-06/17/16) Upper Body Dressing(FIM): 6 (Met-06/17/16) Upper Body Dressing (QC): 6 (Met-06/17/16) Lower Body Dressing(FIM): 6 (Met-06/17/16) Lower Body Dressing (QC): 6 (Met-06/17/16) On/Off Footwear (QC): 6 (Met-06/17/16) Toileting(FIM): 6 (Met-06/17/16) Toileting Hygiene (QC): 6 (Met-06/17/16) Transfers (B,C,W/C) (FIM): 6 (Met-06/17/16) Toilet/Commode Transfer(FIM): 6 (Met-06/17/16) Toilet/Commode Transfer (QC): 6 (Met-06/17/16) Shower Transfer(FIM): 5 (Met-06/17/16) Comprehension(FIM): 3 Expression (FIM): 5 Social Interaction(FIM): 5 Problem Solving(FIM): 3 Memory(FIM): 3 Additional Goals: 2-Verbalize Understanding, 3-ImproveStrength/Lio (and coordination) 1=Demonstrate adherence to instructed precautions during ADL tasks. 2=Patient will verbalize/demonstrate understanding of assistive devices/ modifications for ADL. 3=Patient will improve strength/tolerance for activity to enable patient to perform ADL's. OT Education/Plan Discharge Recommendations Plan/Recommendations: Continue POC Treatment Plan/Plan of Care Patient would benefit from OT for education, treatment and training to promote independence in ADL's, mobility, safety and/or upper extremity function for ADL' s. Plan of Care: ADL Retraining, Cognitive Retraining, Functional Mobility, Group Exercise/Act as Ind (educaiton, exercise, communication, activity tolerance, socialization), UE Funct Exercise/Act, UE Neuromus Re-Ed/Coord, Visual/ Perceptual Retrain Treatment Duration: Jun 27, 2016 Visits Per Week: 10-11 Minutes/Day (M-F): 75-90 Minutes/Day (Sat/Braun): PRN Agreement: Yes Rehab Potential: Guarded Time/GCodes Start Time: 10:00 Stop Time: 11:15 Total Time Billed (hr/min): 75 Billed Treatment Time 1 visit-FA 5 (75 min) SABRINA ROWLAND Jun 18, 2016 13:24
--- NOTE | 2016-06-18 14:39 | Therapy Group Daily Note ---
Therapy Daily Group Note Patient Education Topic Home Safety Exercises LE Seated Exercise, UE Exercise Other/Notes Pt was an active participant in OT group. She introduced herself and shared something that she likes to do in the spring (gardening). She contributed to group education/discussion on home safety and fall prevention. She did seated exercises and was able to lead the group in one exercise of her choice. At the end of the group, she was able to recall the springtime activities of the other group members. She walked back to her room with ARLEEN ARRIAGA and was left seated EOB , all needs met. Start Time: 13:00 Stop Time: 14:10 Total Billed Treatment Time: 70 Total Billed Treatment visit, 70 minutes group JACINDA PICKETT OT Jun 18, 2016 14:39
[2016-06-18 17:30] VITALS: BP 134/63
[2016-06-18] MEDS ORDERED: NCT14P TD (20:06)
[2016-06-18] MEDS ORDERED: PROP20TA5 PO (20:06)
[2016-06-18] MEDS ORDERED: ALPR0.254 PO (20:06)
[2016-06-18] MEDS: ATORVASTATIN 80 MG (LIPITOR) TABLET PO SCH (20:36)
[2016-06-19 05:37] VITALS: BP 104/61
[2016-06-19] MEDS: GLIMEPIRIDE 2 MG (AMARYL) TAB PO SCH (06:14)
[2016-06-19] MEDS: NICOTINE 14 MG (NICODERM) PATCH TD SCH (08:22)
[2016-06-19] MEDS: ALPRAZolam 0.25 MG (XANAX) TAB PO SCH (08:23)
[2016-06-19] MEDS: NICOTINE PATCH REMOVAL TP SCH (08:23)
[2016-06-19] MEDS: ASPIRIN E.C. 325 MG (ECOTRIN) TABLET PO SCH (08:23)
[2016-06-19] MEDS: CLOPIDOGREL 75 MG (PLAVIX) TABLET PO SCH (08:23)
[2016-06-19] MEDS: lisINopril 5 MG (PRINIVIL) TABLET PO SCH (08:23)
[2016-06-19] MEDS: PROPRANOLOL 20 MG (INDERAL) TABLET PO SCH (08:23)
[2016-06-19 08:24] VITALS: BP 117/63
--- NOTE | 2016-06-19 08:37 | Therapy Team Discharge Summary ---
Therapy Discharge Summary Discharge Recommendations Date of Discharge Therapy D/C Recommendations: Home w/ Family Support, [facility] (TCU/NH) Speech-Language Pathology The patient was recently admitted to [facility] Rehabilitation unit following a CVA. Upon admission, the patient demonstrated severe receptive aphasia. Skilled speech therapy focused on command following (verbal and written), functional safety problem solving, and word-finding impairments. The patient demonstrated excellent progress through therapy and met expression, comprehension, social language, problem solving, and memory goals. The patient will be discharged from skilled speech therapy at this time. Speech pathology recommends continued speech services on an outpatient basis. PT Fdc Goals Fdc Goals PT Fdc Goals Time Frame: Jun 23, 2016 Transfers (B,C,W/C) (FIM): 5 Roll Left to Right (QC): 6 Sit to Lying (QC): 6 Lying-Sitting on Side/Bed(QC): 6 Sit to Stand (QC): 4 Car Transfer (QC): 4 Does the Patient Walk: Yes Gait (FIM): 5 Distance: 300' Walk 10 feet (QC): 4 Walk 10ft-Uneven Surface(QC): 4 Walk 50ft with 2 Turns (QC): 4 Walk 150 ft (QC): 4 Gait Level of Assist: 5 Gait Assistive Device: FWW Stairs (FIM): 2 # of Steps: 8 1 Step (curb) (QC): 4 4 Steps (QC): 4 12 Steps (QC): 88 Stairs Level Of Assist: 4 (CGA) Picking up an Object (QC): 88 OT [place] Goals Fdc Goals Time Frame: Jun 27, 2016 Eating (FIM): 6 (Met-06/17/16) Eating (QC): 6 (Met-06/17/16) Oral Hygiene (QC): 6 (Met-06/17/16) Grooming(FIM): 6 (Met-06/17/16) Bathing(FIM): 5 (Met-06/17/16) Shower/Bathe Self (QC): 5 (Met-06/17/16) Upper Body Dressing(FIM): 6 (Met-06/17/16) Upper Body Dressing (QC): 6 (Met-06/17/16) Lower Body Dressing(FIM): 6 (Met-06/17/16) Lower Body Dressing (QC): 6 (Met-06/17/16) On/Off Footwear (QC): 6 (Met-06/17/16) Toileting(FIM): 6 (Met-06/17/16) Toileting Hygiene (QC): 6 (Met-06/17/16) Transfers (B,C,W/C) (FIM): 6 (Met-06/17/16) Toilet/Commode Transfer(FIM): 6 (Met-06/17/16) Toilet/Commode Transfer (QC): 6 (Met-06/17/16) Shower Transfer(FIM): 5 (Met-06/17/16) Comprehension(FIM): 3 Expression (FIM): 5 Social Interaction(FIM): 5 Problem Solving(FIM): 3 Memory(FIM): 3 Additional Goals: 2-Verbalize Understanding, 3-ImproveStrength/Lio (and coordination) 1=Demonstrate adherence to instructed precautions during ADL tasks. 2=Patient will verbalize/demonstrate understanding of assistive devices/ modifications for ADL. 3=Patient will improve strength/tolerance for activity to enable patient to perform ADL's. Speech Fdc Goals [place] Goals 1. The patient will tolerate the least restrictive diet without signs/symptoms of aspiration or laryngeal penetration. 2. The patient will demonstrate improved receptive language for increased function and safety with ADL's in the least restrictive environment. Time Frame: Four Weeks Comprehension: 3 (MET) Expression: 5 (MET) Social Interaction: 5 (MET) Problem Solvin (MET) Memory: 3 (MET) MICHELLE ORDOÑEZ Jun 19, 2016 08:37
--- NOTE | 2016-06-19 08:47 | Progress Note (SOAP) ---
Subjective Subjective/Events-last exam cva. pATIENT TO BE DISCHARGED TODAY. pATIENT SPEECH IS MUCH BETTER. Patient about a person today than when she first came in Objective Exam Vital Signs Date Time Temp Pulse Resp B/P (MAP) Pulse Ox O2 Delivery O2 Flow Rate FiO2 06/19/16 08:24 67 117/63 06/19/16 05:37 97.1 56 16 104/61 96 Room Air 06/18/16 20:20 Room Air 06/18/16 17:30 97.2 66 20 134/63 97 Room Air I & O 06/19/16 07:00 Intake Total 1040 ml Balance 1040 ml Capillary Refill : General Appearance: No Apparent Distress, WD/WN HEENT: Normal ENT Inspection Neck: Normal Inspection Results Lab Laboratory Tests 06/18/16 12:59: Glucometer 203H 06/18/16 17:38: Glucometer 129H 06/18/16 20:35: Glucometer 182H 06/19/16 05:30: Glucometer 125H Microbiology 06/03/16 Urine Culture - Final, Complete Enterococcus Faecalis Probable Actinomyces Assessment/Plan Assessment/Plan Assess & Plan/Chief Complaint CVA. Confusion. History of pneumonia. Hypertension. Multiple lung nodules. Diabetes. . CVA. Confusion is less. History of pneumonia. Hypertension. Multiple lung nodules. Patient improving since seen yesterday. . 06/05. CVA. Confusion much better. History of pneumonia. Diabetes. Patient communicating better. Patient doesn't know her address where she lives. But she can write if. . 06/06/16. CVA. Patient still does not know her address at home. History of pneumonia. Diabetes. . 06/09/16. Stroke. Patient speaking better. Patient has improved area Patient can now verbalize home address. . 06/10/16. infection finished. CVA. Confusion better. Patient speaking better. . 06/11/16. CVA. Confusion better . History of pneumonia. Hypertension. Multiple lung nodules. Patient improving with speech and thought process. . 06/12/16. CVA. Confusion improving. History of pneumonia. Hypertension. Multiple lung nodules. Diabetes. Patient smiling and positive and working hard. . CVA. Infusion better. History of pneumonia. Hypertension. Patient continues to improve. Diabetes.. . 06/16/17. CVA. Confusion. History of pneumonia. Hypertension. Patient speaking better. Patient is thought processes is more consistent. . 06/17/16. CVA. Confusion. History of pneumonia. Hypertension. Patient continues to improve with speech. . . CVA. Confusion resolved. Patient's thought processes better with speech. . 06/19/16. CVA. Confusion resolved. Speech much better. Patient be discharged today. Patient appears happy Clinical Quality Measures DVT/VTE Risk/Contraindication: Risk Factor Score Per Nursin RFS Level Per Nursing on Admit: 4+=Very High LALO HERRERA DO Jun 19, 2016 08:47
--- NOTE | 2016-06-19 09:25 | PM & R (SOAP) Progress Note ---
Subjective Subjective/Events-last exam Patient was seen in her room this AM Has progressed well Appreciate Therapy notes as well as DR Hollingsworth Objective Exam Last Set of Vital Signs Vital Signs Date Time Temp Pulse Resp B/P (MAP) Pulse Ox O2 Delivery O2 Flow Rate FiO2 06/19/16 08:24 67 117/63 06/19/16 05:37 97.1 16 96 Room Air Capillary Refill : I&O Intake and Output 06/18/16 23:59 Intake Total 950 ml Balance 950 ml Intake Oral 950 ml # Voids 7 # Bowel Movements 1 General: Alert, Cooperative, No Acute Distress HEENT: Atraumatic, PERRLA, EOMI, Mucous Memb Moist/[place], Other (Aphasia and Dysphagia) Neck: Supple, No JVD, Other (left CEA site healing well no drainage) Lungs: Clear to Auscultation Heart: Regular Rate Abdomen: Normal Bowel Sounds, Soft, No Tenderness Extremities: No Edema Neuro: Other (Mild rt sided weakness and dyscoordination as well as aphasia and dysphagia) Results Lab Laboratory Tests 06/16/16 11:25: Glucometer 171H 06/16/16 16:38: Glucometer 128H 06/16/16 20:06: Glucometer 211H 06/17/16 05:34: Glucometer 135H 06/17/16 10:57: Glucometer 160H 06/17/16 15:58: Glucometer 165H 06/17/16 20:33: Glucometer 163H 06/18/16 06:14: Glucometer 119H 06/18/16 12:59: Glucometer 203H 06/18/16 17:38: Glucometer 129H 06/18/16 20:35: Glucometer 182H 06/19/16 05:30: Glucometer 125H Microbiology 06/03/16 Urine Culture - Final, Complete Enterococcus Faecalis Probable Actinomyces Assessment/Plan Assessment 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 INGE MILLER MD Jun 19, 2016 09:25
--- NOTE | 2016-06-19 10:37 | Therapy Team Discharge Summary ---
Therapy Discharge Summary Discharge Recommendations Date of Discharge 06/19/16 Therapy D/C Recommendations: Home w/ Family Support, [facility] (TCU/NH) Physical Therapy This patient was seen on ARU for skilled PT intervention post CVA. Upon admission, she required min assist with gait, transfers and on the stairs. Treatment consisted of functional strength, functional mobility, transfers, gait , safety and high level functional activity/balance tasks. She made excellent progress and exceeded all goals set at evaluation. At discharge, she is mod indep with with all functional transfers and with giat and is ready for discharge home with assist from her daughter. Recommend [facility] PT to follow as well. DC PT. PT Telephone Worker Goals Telephone Worker Goals PT Telephone Worker Goals Time Frame: Jun 23, 2016 Transfers (B,C,W/C) (FIM): 5 (met) Roll Left to Right (QC): 6 (et) Sit to Lying (QC): 6 (met) Lying-Sitting on Side/Bed(QC): 6 (met) Sit to Stand (QC): 4 (met) Car Transfer (QC): 4 Does the Patient Walk: Yes Gait (FIM): 5 (met) Distance: 300' Walk 10 feet (QC): 4 (met) Walk 10ft-Uneven Surface(QC): 4 (met) Walk 50ft with 2 Turns (QC): 4 (met) Walk 150 ft (QC): 4 (met) Gait Level of Assist: 5 Gait Assistive Device: FWW Stairs (FIM): 2 (met) # of Steps: 8 1 Step (curb) (QC): 4 4 Steps (QC): 4 12 Steps (QC): 88 Stairs Level Of Assist: 4 (CGA) Picking up an Object (QC): 88 OT Nursing Home Goals Nursing Home Goals Time Frame: Jun 27, 2016 Eating (FIM): 6 (Met-06/17/16) Eating (QC): 6 (Met-06/17/16) Oral Hygiene (QC): 6 (Met-06/17/16) Grooming(FIM): 6 (Met-06/17/16) Bathing(FIM): 5 (Met-06/17/16) Shower/Bathe Self (QC): 5 (Met-06/17/16) Upper Body Dressing(FIM): 6 (Met-06/17/16) Upper Body Dressing (QC): 6 ([facility]-06/17/16) Lower Body Dressing(FIM): 6 ([facility]-06/17/16) Lower Body Dressing (QC): 6 ([facility]-06/17/16) On/Off Footwear (QC): 6 (Met-06/17/16) Toileting(FIM): 6 ([facility]-06/17/16) Toileting Hygiene (QC): 6 ([facility]-06/17/16) Transfers (B,C,W/C) (FIM): 6 (Met-06/17/16) Toilet/Commode Transfer(FIM): 6 ([facility]-06/17/16) Toilet/Commode Transfer (QC): 6 ([facility]-06/17/16) Shower Transfer(FIM): 5 (Met-06/17/16) Comprehension(FIM): 3 (MET) Expression (FIM): 5 (MET) Social Interaction(FIM): 5 (MET) Problem Solving(FIM): 3 (MET) Memory(FIM): 3 (MET) Additional Goals: 2-Verbalize Understanding, 3-ImproveStrength/Lio (and coordination) 1=Demonstrate adherence to instructed precautions during ADL tasks. 2=Patient will verbalize/demonstrate understanding of assistive devices/ modifications for ADL. 3=Patient will improve strength/tolerance for activity to enable patient to perform ADL's. Speech Nursing Home Goals Nursing Home Goals 1. The patient will tolerate the least restrictive diet without signs/symptoms of aspiration or laryngeal penetration. 2. The patient will demonstrate improved receptive language for increased function and safety with ADL's in the least restrictive environment. Time Frame: Four Weeks Comprehension: 3 (MET) Expression: 5 (MET) Social Interaction: 5 (MET) Problem Solvin (MET) Memory: 3 (MET) SABRINA BARBOSA PT Jun 19, 2016 10:37
--- NOTE | 2016-06-19 10:40 | Physical Therapy Daily Note ---
PT Daily Note-Current Subjective Pt denied pain upon arrival. Pt asked if she could don her jeans. Pt says she is very anxious for discharge to home. "I just want to go home. I am ready. I will have my daughter with me and she will help me but I wont need much." Mental Status Patient Orientation: Person, Place, Situation Transfers Functional [place] Measure 0=Not Assessed/NA 4=Minimal Assistance 1=Total Assistance 5=Supervision or Setup 2=Maximal Assistance 6=Modified [place] 3=Moderate Assistance 7=Complete IndependenceIRFPAI Quality Coding Scale 6 Independent with activity with or without an assistive device 5 Patient requires set up or clean up by helper. Patient completes activity by themselves 4 Supervision or touching assist (CGA). [place] provide cues , steadying assist 3 The helper provides less than half the effort to complete the activity 2 The helper provides more than half the effort to complete the activity 1 Dependent. The helper does all the effort to complete an activity 7 Patient refused to complete or attempt activity 9 The patient did not perform the activity before the current illness or injury 88 Not attempted due to Medical conditions or safety concerns Bed mobility and transfers all levels mod (I). Gait Training Gait Assistive Device: FWW Pt amb with FWW x 12min with CGA-SBA, rest break as needed. Pt demonstrated occasional scuff of bottom of (R) foot and occasional midline deviation scuffing the (L) shoe with (R). Otherwise, good clearance and swing through during gait training (R) LE. Balance Special Test Comments Pt doffed pajamas and donned jeans in normal fashion sitting/standing from bed as needed. Pt retrieved her tennis shoes from under the bed and proceeded to don tennis shoes including tying the laces in normal fashion. Treatments Pt seen for gait training in common area. Assessment Current Status: Good Progress Pt sitting EOB with call light and all needs met post therapy. Ambu alarm activated. Pt reminded to call nursing if she should need anything. Pt agreeable. PT Short Term Goals Short Term Goals Time Frame: Jun 09, 2016 Gait (FIM): 4 Gait Distance Comment: 200' Gait Level of Assist: 4 (CGA) Gait Assistive Device: FWW PT Rn Gastroenterology Goals Rn Gastroenterology Goals PT Rn Gastroenterology Goals Time Frame: Jun 23, 2016 Transfers (B,C,W/C) (FIM): 5 Sit to Lying (QC): 6 Lying-Sitting on Side/Bed(QC): 6 Sit to Stand (QC): 4 Rollin Roll Left to Right (QC): 6 Car Transfer (QC): 4 Does the Patient Walk: Yes Gait (FIM): 5 Distance: 300' Walk 10 feet (QC): 4 Walk 10ft-Uneven Surface(QC): 4 Walk 50ft with 2 Turns (QC): 4 Walk 150 ft (QC): 4 Gait Level of Assist: 5 Gait Assistive Device: FWW Stairs (FIM): 2 # of Steps: 8 1 Step (curb) (QC): 4 4 Steps (QC): 4 12 Steps (QC): 88 Stairs Level Of Assist: 4 (CGA) Picking up an Object (QC): 88 PT Plan Treatment/Plan Treatment Plan: Continue Plan of Care Treatment Plan: Bed Mobility, Education, Functional Activity Lio, Functional Strength, Group Therapy, Gait, Safety, Therapeutic Exercise, Transfers Treatment Duration: Jun 23, 2016 Visits Per Week: 10-11 Minutes/Day (M-F): 60-90 Minutes/Day (Sat/Braun): 15-30 Time/GCodes Time In: 915 Time Out: 935 Total Billed Treatment Time: 15 Total Billed Treatment 1, Gait 15 min EDITH OLIVA CPTMigue Jun 19, 2016 10:40
--- NOTE | 2016-06-19 11:37 | Therapy Team Discharge Summary ---
Therapy Discharge Summary Discharge Recommendations Date of Discharge Therapy D/C Recommendations: Home w/ Family Support, Fdc (TCU/NH) Occupational Therapy Pt was seen for skilled OT to increase her independence in basic self care to allow her to safely return to her home to live with family support and to decrease caregiver burden, after stroke. On admission pt needed min assist for eating, upper body dressing, lower body dressing, grooming; contact guard assist for for bathing, toileting, transfers. By discharge she had progressed to modified independent with all basic ADLs, with safety concerns. Also worked on IADLs since she lives alone. Equipment used included shower bench, grab bars , tall toilet, FWW for balance. See tx plan for goals met. Recommend home health OT on discharge. DC from OT PT Annual Giving Officer Goals Long-Term Goals PT Long-Term Goals Time Frame: Jun 23, 2016 Transfers (B,C,W/C) (FIM): 5 (met) Roll Left to Right (QC): 6 (et) Sit to Lying (QC): 6 (met) Lying-Sitting on Side/Bed(QC): 6 (met) Sit to Stand (QC): 4 (met) Car Transfer (QC): 4 Does the Patient Walk: Yes Gait (FIM): 5 (met) Distance: 300' Walk 10 feet (QC): 4 (met) Walk 10ft-Uneven Surface(QC): 4 (met) Walk 50ft with 2 Turns (QC): 4 (met) Walk 150 ft (QC): 4 (met) Gait Level of Assist: 5 Gait Assistive Device: FWW Stairs (FIM): 2 (met) # of Steps: 8 1 Step (curb) (QC): 4 4 Steps (QC): 4 12 Steps (QC): 88 Stairs Level Of Assist: 4 (CGA) Picking up an Object (QC): 88 OT Annual Giving Officer Goals Long-Term Goals Time Frame: Jun 27, 2016 Eating (FIM): 6 (Met-06/17/16) Eating (QC): 6 (Met-06/17/16) Oral Hygiene (QC): 6 (Met-06/17/16) Grooming(FIM): 6 (Met-06/17/16) Bathing(FIM): 5 (Met-06/17/16) Shower/Bathe Self (QC): 5 (Met-06/17/16) Upper Body Dressing(FIM): 6 ([facility]-06/17/16) Upper Body Dressing (QC): 6 ([facility]-06/17/16) Lower Body Dressing(FIM): 6 ([facility]-06/17/16) Lower Body Dressing (QC): 6 ([facility]-06/17/16) On/Off Footwear (QC): 6 ([facility]-06/17/16) Toileting(FIM): 6 ([facility]-06/17/16) Toileting Hygiene (QC): 6 ([facility]-06/17/16) Transfers (B,C,W/C) (FIM): 6 ([facility]-06/17/16) Toilet/Commode Transfer(FIM): 6 ([facility]-06/17/16) Toilet/Commode Transfer (QC): 6 ([facility]-06/17/16) Shower Transfer(FIM): 5 (Met-06/17/16) Comprehension(FIM): 3 (MET) Expression (FIM): 5 (MET) Social Interaction(FIM): 5 (MET) Problem Solving(FIM): 3 (MET) Memory(FIM): 3 (MET) Additional Goals: 2-Verbalize Understanding, 3-ImproveStrength/Lio (and coordination) 1=Demonstrate adherence to instructed precautions during ADL tasks. 2=Patient will verbalize/demonstrate understanding of assistive devices/ modifications for ADL. 3=Patient will improve strength/tolerance for activity to enable patient to perform ADL's. Speech Annual Giving Officer Goals Annual Giving Officer Goals 1. The patient will tolerate the least restrictive diet without signs/symptoms of aspiration or laryngeal penetration. 2. The patient will demonstrate improved receptive language for increased function and safety with ADL's in the least restrictive environment. Time Frame: Four Weeks Comprehension: 3 (MET) Expression: 5 (MET) Social Interaction: 5 (MET) Problem Solvin (MET) Memory: 3 (MET) JACINDA PICKETT OT Jun 19, 2016 11:37
[2016-06-19 13:50] VITALS: BP 121/77
--- NOTE | 2016-07-02 09:29 | DISCHARGE SUMMARY ---
DATE OF ADMISSION: 06/02/2016 DATE OF DISCHARGE: 06/19/2016 HISTORY OF PRESENT ILLNESS: The patient is a 71-year-old female with past medical history significant for diabetes mellitus type 2, hypertension, hyperlipidemia, pneumonia, history of left-sided stroke with residual right-sided weakness 03/2016. She was put on aspirin, Plavix and Lipitor. She was also found to have critical left carotid stenosis for which she underwent carotid endarterectomy 05/20, Dr. Reymundo Joshi. After surgery she was doing much better. Seemed like her right-sided weakness had almost disappeared until the morning of 05/30 when she woke up having some aphasia. CT of the head showed findings compatible with subacute left frontoparietal nonhemorrhagic infarct. The patient was resumed on aspirin, Lipitor and Plavix. EKG was normal sinus rhythm. The patient had a decline in her functional independence due to this. She lives alone in [place], [place]. Her PCP is Dr. Jose Roberto Joel. She was referred to Inpatient Rehabilitation Unit at [facility] for comprehensive stroke rehabilitation so to be closer to home. PAST MEDICAL HISTORY: 1. Prior stroke. 2. Carotid artery disease. 3. Hypertension. 4. Type 2 diabetes mellitus. The patient does have dysphagia and is on pureed diet with honey thick liquids. MEDICAL COURSE: The patient was followed by Dr. Davidson and Dr. Anderson while on rehab unit. CBC on 06/03 showed WBC 12.8, H\T\H 14.2/43, platelet count 303,000. Accu-Cheks from 06/18 to 06/19 varied between 125 and 203. UA was positive on 06/03. Urine culture showed Enterococcus faecalis and probable Actinomyces. The patient was placed on Keflex. Follow-up UA was negative and she was switched to Levaquin on 06/05 once sensitivities were determined. She was afebrile during her stay. Her pulse was 71, respirations 18, blood pressure 121/71, O2 sat 97% on room air. She had some resting tremors and was started on a low dose beta ervin for that with good results. Family requested Nicoderm patch for smoking cessation that was provided. Her incision site from carotid endarterectomy was healing well. Her diabetes mellitus was controlled. Her hypertension was controlled. She had improvement in her swallow aphasia and right hemiparesis. Her diet was modified upon admission and speech therapy noted dysphagia with good results. Her BUN was mildly elevated at 27 on 06/03 with normal creatinine 1.06. Blood glucose 159. REHABILITATION COURSE: Speech therapy notes upon admission, the patient demonstrated severe receptive aphasia. The patient demonstrated excellent progress to therapy and met expression, comprehension, social, language, problem solving and memory goals. Her swallow improved as well. PT notes upon admission, she required min assist with gait, transfers, and transfers and on stairs. She made excellent progress and upon discharge she is modified independent with all functional transfers, and with gait and is ready for discharge home with assist from her daughter. Home health care was recommended. OT notes upon admission, she needed min assist for eating, upper body dressing, lower body dressing, grooming. She was contact guard assist for bathing, toileting, transfers. By discharge she had progressed to modified independence with all basic ADLs and safety concerns. Also worked on independent ADLs since she lives alone, but she will have assistance from her daughter. Home health care OT was recommended. Equipment used included shower bench, grab bars, tall toilet, front wheel walker for balance. The patient continued to demonstrate good accuracy with base of tongue, pharyngeal and laryngeal exercises with speech therapy and diet was advanced. No signs and symptoms of aspiration were demonstrated with any consistency the patient consumed. The patient's vocal quality remain clear throughout her meal DISCHARGE INSTRUCTIONS: The patient will have follow-up with Dr. Zhang, PCP and Dr. Dwyer. Continue current diet. The patient will have home health care. The patient will have assistance from her daughter is needed. DISCHARGE MEDICATIONS: 1. Xanax 0.25 mg p.o. b.i.d. 2. NicoDerm patch 14 mg topically daily. 3. Propranolol 20 mg p.o. daily for tremor. 4. ASA 325 mg p.o. daily. 5. Lipitor 80 mg p.o. at bedtime. 6. Plavix 75 mg p.o. daily. 7. Glimepiride 2 mg p.o. b.i.d. 8. Lisinopril 5 mg p.o. daily. 9. Accu-Cheks as per home regimen. DISCHARGE DIAGNOSES: 1. Rehabilitation ambulatory dysfunction secondary to left frontal parietal cerebrovascular accident with mild right hemiparesis, receptive aphasia and dysphagia all improving. 2. Dysphagia, improving. 3. Discoordination, improving. 4. UTI, treated. 5. Diabetes mellitus type 2, controlled with medication. 6. Hypertension, controlled with medication. 7. Hyperlipidemia, on statin. 8. Multiple lung nodules, stable. 9. History of tobaccoism currently with smoking cessation on NicoDerm patch/ CONDITION AT DISCHARGE: Improved and stable. PROGNOSIS: Rehab prognosis appears good for continued improvement and return to independent living with some assistance from her daughter as needed. The patient may eventually require a more formal assisted living setting. Job ID: [id number] Dictated Date: 07/01/2016 09:55:57 Casket Assembler Date: 07/01/2016 13:31:50/jan CUEVAS
== END 2016-06-19 13:53 | disposition home health service (06) | DRG 57 ==
LOC: DELPENDDIS
PROVIDERS: ADMIT Physical Medicine & Rehabilitation; ATTEND Physical Medicine & Rehabilitation
DX: I69.351 Hemiplegia and hemiparesis following cerebral infarction affecting right dominant side (principal); I69.320 Aphasia following cerebral infarction; F80.1 Expressive language disorder; I69.391 Dysphagia following cerebral infarction; R13.10 Dysphagia, unspecified; I69.398 Other sequelae of cerebral infarction; R27.9 Unspecified lack of coordination; N39.0 Urinary tract infection, site not specified; Z66 Do not resuscitate; E11.9 Type 2 diabetes mellitus without complications; I10 Essential (primary) hypertension; E78.5 Hyperlipidemia, unspecified; R91.8 Other nonspecific abnormal finding of lung field; Z87.891 Personal history of nicotine dependence
CPT/HCPCS: 36415; 80053; 81000; 82962; 85025; 87077; 87088; 87186

== ENCOUNTER 2017-12-11 12:37 | Outpatient (RCR) | payer MEDICARE, OTHER ==
[~2017-12-11 12:37] MED LIST: ACHD5005 PO; ALPR0.254 PO; ASPI325T32 PO; ATOR80TA64 PO; CLOP75TA69 PO; GLIM2TAB PO; LISI-556 PO; NICO-587 TD; PROP20TA5 PO
== END 2017-12-27 | disposition home or self-care (01) ==
LOC: ONC 12:37
PROVIDERS: ATTEND Radiology Radiation Oncology
DX: Z51.0 Encounter for antineoplastic radiation therapy (principal); C79.51 Secondary malignant neoplasm of bone; C34.12 Malignant neoplasm of upper lobe, left bronchus or lung
CPT/HCPCS: 77290; 77295; 77300; 77333; 77334; 77417; 99204